=== PATIENT | male | born 1995 | race Two or more races ===

== ENCOUNTER 2022-11-08 16:29 | Emergency (ER) | payer MEDICAID, SELFPAY ==
[2022-11-08 16:39] VITALS: BP 102/67; PULSE 86; RESP 16; TEMP 37.2; O2SAT 99; BMI 23.3
--- NOTE | 2022-11-08 16:51 | ED_ITS ---
HPI - General Adult General Chief complaint: Nausea/Vomiting/Diarrhea Stated complaint: BACK PAIN, DROWSINESS Time Seen by Provider: 11/08/22 16:45 Source: patient Mode of arrival: walk-in Limitations: no limitations History of Present Illness HPI narrative: patient is a 27-year-old male who presents to the emergency department for a history of one week of illness, low back pain, discomfort with urination and sup rapubic abdominal pain. He reports multiple episodes of nausea and vomiting. He states he has not been able to hold anything down that he eats although he ate a bag of chips in the lobby prior to coming to an exam room. He has had no objective fevers. No upper respiratory symptoms. No medications taken prior to arrival. Related Data Home Medications Medication Instructions Recorded Confirmed cyclobenzaprine 10 mg tablet 10 mg PO Q8H PRN muscle pain 11/08/22 11/08/22 Previous Rx's Medication Instructions Recorded dicyclomine 20 mg tablet 20 mg PO QID PRN abdominal pain 11/08/22 #12 tabs ketorolac 10 mg tablet 10 mg PO TID PRN pain #10 tabs 11/08/22 ondansetron 4 mg disintegrating 4 mg PO Q6H PRN nausea and 11/08/22 tablet vomiting #12 tabs Allergies Allergy/AdvReac Type Severity Reaction Status Date / Time No Known Drug Allergies Allergy Verified 11/08/22 16:44 PFSH PFSH Social History Smoking status: Current every day smoker Exam Constitutional Vital Signs - 24 hr 11/08/22 16:39 Temperature 99.0 F Pulse Rate [Monitor] 86 Respiratory Rate 16 Blood Pressure [Right Arm] 102/67 Pulse Oximetry 99 Oxygen Delivery Method Room Air Course Vital Signs Vital signs: Vital Signs Temperature 99.0 F 11/08/22 16:39 Pulse Rate 86 11/08/22 16:39 Respiratory Rate 16 11/08/22 16:39 Blood Pressure 102/67 11/08/22 16:39 Pulse Oximetry 99 11/08/22 16:39 Oxygen Delivery Method Room Air 11/08/22 16:39 Temperature 99.0 F 11/08/22 16:39 Pulse Rate 86 11/08/22 16:39 Respiratory Rate 16 11/08/22 16:39 Blood Pressure 102/67 11/08/22 16:39 Pulse Oximetry 99 11/08/22 16:39 Oxygen Delivery Method Room Air 11/08/22 16:39 Medical Decision Making MDM Narrative Medical decision making narrative: patient treated with IV fluids, Toradol, Zofran. He had no symptoms of emesis in the Emergency Room and was able to eat and drink without difficulty. Lab studies are stable, bilirubin is elevated although LFTs and lipase are not elevated and the patient has no tenderness to the right upper quadrant. CT shows no evidence of acute abnormalities, gallbladder and liver within normal limits. Patient will be discharged home with Toradol, Bentyl, Zofran. Follow-up with PCP and return to the emergency department if symptoms change or worsen. Medical Records Medical records reviewed: Yes I reviewed the patient's medical records Lab Data Lab results reviewed: Yes I reviewed the patient's lab results Labs: Lab Results 11/08/22 Range/Units 17:35 WBC 9.6 (4.0-11.0) 10^3/uL RBC 5.30 (4.70-6.10) 10^6/uL Hgb 15.8 (14.0-18.0) g/dL Hct 45.8 (42.0-54.0) % MCV 86.4 (80.0-94.0) fL MCH 29.8 (25.9-34.0) pg MCHC 34.5 (29.9-35.2) g/dL RDW 12.5 (11.0-15.0) % Plt Count 271 (150-450) 10^3/uL MPV 9.8 (9.5-13.5) fL Neut % (Auto) 77.6 H (43.0-75.0) % Lymph % (Auto) 14.7 L (20.5-60.0) % [place] % (Auto) 6.2 (1.7-12.0) % Eos % (Auto) 1.0 (0.9-7.0) % Baso % (Auto) 0.3 (0.2-2.0) % Neut # (Auto) 7.5 H (1.4-6.5) 10^3/uL Lymph # (Auto) 1.4 (1.2-3.8) 10^3/uL [place] # (Auto) 0.6 (0.3-0.8) 10^3/uL Eos # (Auto) 0.1 (0.0-0.7) 10^3/uL Baso # (Auto) 0.0 (0.0-0.1) 10^3/uL Abs Immat Gran (auto) 0.02 (0.00-0.03) 10^3/uL Imm/Tot Granulo (auto) 0.2 (0.0-0.5) % Sodium 138 (136-145) mmol/L Potassium 3.8 (3.5-5.1) mmol/L Chloride 103 (98-107) mmol/L Carbon Dioxide 31.4 (21.0-32.0) mmol/L Anion Gap 7.4 BUN 9.0 (7.0-18.0) mg/dL Creatinine 0.68 L (0.70-1.30) mg/dL Est GFR ( Amer) >60 (>=60) Est GFR (Non-Af Amer) >60 (>=60) BUN/Creatinine Ratio 13.2 Glucose 85 (74-106) mg/dL Lactate 1.1 (0.4-2.0) mmol/L Calcium 8.8 (8.5-10.1) mg/dL Total Bilirubin 1.8 H (0.2-1.0) mg/dL AST 22 (15-37) U/L ALT 37 (16-63) U/L Alkaline Phosphatase 74 (46-116) U/L Total Protein 7.1 (6.4-8.2) g/dL Albumin 3.7 (3.4-5.0) g/dL Globulin 3.4 g/dL Albumin/Globulin Ratio 1.1 Lipase 45.0 L (73.0-393.0) U/L Urine Color Yellow (YELLOW) Urine Clarity Clear (CLEAR) Urine pH 7.0 (5.0-9.0) Ur Specific [place] 1.010 (1.005-1.025) Urine Protein Negative (NEG/TRACE) mg/dL Urine Glucose (UA) Negative (NEGATIVE) mg/dL Urine Ketones Negative (NEGATIVE) mg/dL Urine Occult Blood Negative (NEGATIVE) Urine Nitrite Negative (NEGATIVE) Urine Bilirubin Negative (NEGATIVE) Urine Urobilinogen 0.2 (0.2-1.0) EU/dL Ur Leukocyte Esterase Negative (NEGATIVE) Monoscreen Negative (NEGATIVE) Imaging Data CT scan - abdomen: Attestation: I have reviewed the pertinent imaging results. Radiologist's impression: Procedure: CT abdomen pelvis wo con EXAM: CT abdomen pelvis wo con TECHNIQUE: Axial CT images were obtained of the abdomen and pelvis with intravenous contrast. Sagittal and coronal reformatted images were also obtained. Dose reduction techniques were achieved by using automated exposure control and/or adjustment of mA and/or kV according to patient size and/or use of iterative reconstruction technique. HISTORY: flank pain COMPARISON: 10/10/2013 FINDINGS: Lower chest: The lower lungs are clear. Liver: The liver is homogeneous with normal contours and normal size. Gallbladder: The gallbladder is unremarkable. There is no intra or extrahepatic biliary dilatation. Pancreas: The pancreas is homogeneous without evidence for mass lesion or inflammation. Spleen: The spleen is unremarkable without evidence for mass lesion. Adrenal glands: The adrenal glands are unremarkable Kidneys and bladder: The kidneys are unremarkable with no evidence for mass lesion, hydronephrosis or inflammation. The ureters demonstrate normal caliber. The urinary bladder appears unremarkable given lack of distention. GI Tract: Stomach is unremarkable. Visualized small bowel is unremarkable without evidence for obstruction or active inflammation. The appendix is unremarkable.The visualized portion of the large bowel is unremarkable. Reproductive: Unremarkable Lymph nodes: No retroperitoneal or abdominal lymphadenopathy. Vascular: The aorta is not dilated. Peritoneum: No free intraperitoneal air or fluid. No acute inflammation. Abdominal wall: Unremarkable without acute abnormality. IMPRESSION: No acute abdominal pathology. No acute inflammatory process. No obstructing urinary tract stone. No evidence for bowel obstruction. Electronically authenticated by: CHANNING SAINZ Date: 11/08/2022 18:07 Discharge Plan Discharge Chief Complaint: Nausea/Vomiting/Diarrhea Clinical Impression: Low back pain, Nausea and vomiting Patient Disposition: Home, Self-Care Time of Disposition Decision: 18:28 Condition: Good Prescriptions / Home Meds: New ketorolac 10 mg tablet 10 mg PO TID PRN (Reason: pain) Qty: 10 0RF dicyclomine 20 mg tablet 20 mg PO QID PRN (Reason: abdominal pain) Qty: 12 0RF ondansetron 4 mg tablet,disintegrating 4 mg PO Q6H PRN (Reason: nausea and vomiting) Qty: 12 0RF No Action cyclobenzaprine 10 mg tablet 10 mg PO Q8H PRN (Reason: muscle pain) Instructions: Acute Nausea and Vomiting (ED), Acute Low Back Pain (ED) Stand Alone Forms: Portal Instructions Referrals: Physician,Non-Staff, MD [Primary Care Provider] - 1 week
--- NOTE | 2022-11-08 17:26 | CT_ITS ---
The [address] [address] Patient Name: KEELY ELLIS MRN: [id number] date: 1995 Sex: M Assigned Patient Location: ER Current Patient Location: Accession/Order Number: [id number] Exam Date: 11/08/2022 17:22 Report Date: 11/08/2022 18:07 At the request of: MICAH NELSON Procedure: CT abdomen pelvis wo con EXAM: CT abdomen pelvis wo con TECHNIQUE: Axial CT images were obtained of the abdomen and pelvis with intravenous contrast. Sagittal and coronal reformatted images were also obtained. Dose reduction techniques were achieved by using automated exposure control and/or adjustment of mA and/or kV according to patient size and/or use of iterative reconstruction technique. HISTORY: flank pain COMPARISON: 10/10/2013 FINDINGS: Lower chest: The lower lungs are clear. Liver: The liver is homogeneous with normal contours and normal size. Gallbladder: The gallbladder is unremarkable. There is no intra or extrahepatic biliary dilatation. Pancreas: The pancreas is homogeneous without evidence for mass lesion or inflammation. Spleen: The spleen is unremarkable without evidence for mass lesion. Adrenal glands: The adrenal glands are unremarkable Kidneys and bladder: The kidneys are unremarkable with no evidence for mass lesion, hydronephrosis or inflammation. The ureters demonstrate normal caliber. The urinary bladder appears unremarkable given lack of distention. GI Tract: Stomach is unremarkable. Visualized small bowel is unremarkable without evidence for obstruction or active inflammation. The appendix is unremarkable.The visualized portion of the large bowel is unremarkable. Reproductive: Unremarkable Lymph nodes: No retroperitoneal or abdominal lymphadenopathy. Vascular: The aorta is not dilated. Peritoneum: No free intraperitoneal air or fluid. No acute inflammation. Abdominal wall: Unremarkable without acute abnormality. IMPRESSION: No acute abdominal pathology. No acute inflammatory process. No obstructing urinary tract stone. No evidence for bowel obstruction. Electronically authenticated by: CHANNING SAINZ Date: 11/08/2022 18:07
[2022-11-08 17:44] LABS: Basophils Percent Auto 0.3 % (0.2-2.0); Eosinophils Absolute Auto 0.1 10^3/uL (0.0-0.7); Hematocrit 45.8 % (42.0-54.0); Hemoglobin 15.8 g/dL (14.0-18.0); Immature Granulocytes Abs Auto 0.02 10^3/uL (0.00-0.03); Immature Granulocytes Pct Auto 0.2 % (0.0-0.5); Lymphocytes Absolute Auto 1.4 10^3/uL (1.2-3.8); Lymphocytes Percent Auto 14.7 % (20.5-60.0); Mean Corpuscular HGB Conc 34.5 g/dL (29.9-35.2); Mean Corpuscular Hemoglobin 29.8 pg (25.9-34.0); Mean Corpuscular Volume 86.4 fL (80.0-94.0); Mean Platelet Volume 9.8 fL (9.5-13.5); Monocytes Absolute Auto 0.6 10^3/uL (0.3-0.8); Monocytes Percent Auto 6.2 % (1.7-12.0); Neutrophils Absolute Auto 7.5 10^3/uL (1.4-6.5); Neutrophils Percent Auto 77.6 % (43.0-75.0); Platelet Count 271 10^3/uL (150-450); Red Cell Distribution Width 12.5 % (11.0-15.0); White Blood Count 9.6 10^3/uL (4.0-11.0)
[2022-11-08] MEDS: ONDANSETRON PF 4 MG/2 ML VIAL IV (17:44)
[2022-11-08] MEDS: KETOROLAC TROMETHAMINE 30 MG/ML VIAL IVP (17:44)
[2022-11-08] MEDS: 0.9 % SODIUM CHLORIDE 1,000 ML 999 ML IV (17:45)
[2022-11-08 17:56] LABS: Bilirubin Urine NEGATIVE (NEGATIVE); Blood Urine NEGATIVE (NEGATIVE); Clarity Urine CLEAR (CLEAR); Color Urine YELLOW (YELLOW); Glucose Urine UA NEGATIVE (NEGATIVE); Ketones Urine NEGATIVE (NEGATIVE); Leukocyte Esterase Urine NEGATIVE (NEGATIVE); Nitrite Urine NEGATIVE (NEGATIVE); Protein Urine NEGATIVE (NEG/TRACE); Urobilinogen Urine 0.2 EU/dL (0.2-1.0)
[2022-11-08 17:59] LABS: Mono Screen NEGATIVE (NEGATIVE); Urine Microscopic Indicated NO
[2022-11-08 18:06] LABS: Lactate/Lactic Acid 1.1 mmol/L (0.4-2.0)
[2022-11-08 18:13] LABS: Alanine Aminotransferase 37 U/L (16-63); Albumin Globulin Ratio 1.1; Albumin Level 3.7 g/dL (3.4-5.0); Alkaline Phosphatase 74 U/L (46-116); Anion Gap 7.4; Aspartate Amino Transferase 22 U/L (15-37); BUN Creatinine Ratio 13.2; Bilirubin Total 1.8 mg/dL (0.2-1.0); Calcium 8.8 mg/dL (8.5-10.1); Carbon Dioxide 31.4 mmol/L (21.0-32.0); Chloride 103 mmol/L (98-107); Estimated GFR (African America >60 (>=60); Estimated GFR (Non-African Ame >60 (>=60); Globulin 3.4 g/dL; Glucose 85 mg/dL (74-106); Potassium 3.8 mmol/L (3.5-5.1); Sodium 138 mmol/L (136-145); Total Protein 7.1 g/dL (6.4-8.2)
[2022-11-08 18:43] VITALS: BP 99/66; PULSE 90; RESP 16; TEMP 36.8; O2SAT 99
== END 2022-11-08 18:48 | disposition home or self-care (01) ==
PROVIDERS: Physician Assistant; Emergency Provider Emergency Medicine
DX: R11.2 Nausea with vomiting, unspecified (principal); M54.50 Low back pain, unspecified; F17.210 Nicotine dependence, cigarettes, uncomplicated
CPT/HCPCS: 36415; 74176; 80053; 81003; 83605; 83690; 85025; 86308; 96374; 96375; 99284

== ENCOUNTER 2023-10-28 15:09 | Emergency (ER) | payer MEDICAID, SELFPAY ==
[2023-10-28 15:13] VITALS: BP 122/68; PULSE 74; TEMP 36.7; O2SAT 98; BMI 24.1
--- NOTE | 2023-10-28 15:29 | ED_ITS ---
HPI - SOB/Dyspnea General Chief Complaint: Shortness of Breath/Dyspnea Stated Complaint: Shortness of Breath Time Seen by Provider: 10/28/23 15:29 Source: patient and family Mode of arrival: walk-in Limitations: no limitations History of Present Illness HPI Narrative: Patient is here complaining of some shortness of breath and a sharp stabbing chest pain. He was at a different hospital last night and evaluated and discharged. He said the sharp stabbing pain is in both sides of his lungs and he points to his right and left chest. He has not had any previous history of pneumonia asthma reactive airway disease COVID or any influenza/viral type symptoms. He has not had aches and pains fever chills sore throat runny nose earache or headache. He does a lot of vaping and also does a lot of tobacco products. He denies any marijuana or any other illicit drugs. He is not on any medications or antibiotics. No previous cardiac history. Does not have any swelling of his legs or his joints or evidence of rheumatological disorder. He is not sure exactly what all tests were done in the other hospital last night. Related Data Home Medications ?Medication ?Instructions ?Recorded ?Confirmed ibuprofen 600 mg tablet 600 mg PO Q8H PRN pain 10/28/23 10/28/23 lorazepam 1 mg tablet 1 mg PO Q8H PRN anxiety 10/28/23 10/28/23 Allergies Allergy/AdvReac Type Severity Reaction Status Date / Time No Known Drug Allergies Allergy Verified 11/08/22 16:44 PFSH PFSH Social History Smoking status: Current every day smoker Exam Narrative Exam Narrative: Awake alert almost paranoid and behavior. Vital signs are stable and he is a for pulse oximetry is 98 to 100% on room air he is not tachycardic or tachyp neic. He is thin does not appear to be in any distress. His lungs were completely clear with no wheeze rales or rhonchi even with forced exhalation do not hear any wheezing or bronchospasm. Heart sounds are normal with no clicks rubs gallops or murmur. He has no jugular vein distention. Does not have any abdominal discomfort. Extremities show no evidence of edema phlebitis erythema or swelling. Joints are not problematic or symptomatic at this time. Constitutional Vital Signs, click to edit/add: Last Vital Signs Temp 98.0 F 10/28/23 15:13 Pulse 74 10/28/23 15:13 Resp 18 10/28/23 15:13 BP 122/68 10/28/23 15:13 Pulse Ox 98 10/28/23 15:13 O2 Del Method Room Air 10/28/23 15:13 Course Vital Signs Vital signs: Vital Signs Temperature 98.0 F 10/28/23 15:13 Pulse Rate 74 10/28/23 15:13 Respiratory Rate 18 10/28/23 15:13 Blood Pressure 122/68 10/28/23 15:13 Pulse Oximetry 98 10/28/23 15:13 Oxygen Delivery Method Room Air 10/28/23 15:13 Temperature 98.0 F 10/28/23 15:13 Pulse Rate 74 10/28/23 15:13 Respiratory Rate 18 10/28/23 15:13 Blood Pressure 122/68 10/28/23 15:13 Pulse Oximetry 98 10/28/23 15:13 Oxygen Delivery Method Room Air 10/28/23 15:13 MDM - SOB/Dyspnea MDM Narrative Medical decision making narrative: Records were obtained from the other hospital. He is actually seen there twice. Extensive testing was done with D-dimer cardiac enzymes sequentially EKGs chest x-ray CHEM 414 profile and both times they were negative. They felt that he had anxiety. In fact he has known history of schizoaffective disorder and anxiety depression. Laboratory testing here shows normal troponin pulse oximetry 100% respiratory rate normal normal auscultatory findings normal clinical exam and normal chest x-ray and normal EKG. We had an extensive discussion with the family members and himself. I do believe that this is more of an anxiety type of situation. He has been seeing a counselor in the past and we advised him to follow-up with a counselor. He is not suicidal Discharge Plan Discharge Stand Alone Forms: Portal Instructions Chief Complaint: Shortness of Breath/Dyspnea Clinical Impression: Chest pain, Anxiety Patient Disposition: Home, Self-Care Time of Disposition Decision: 16:33 Prescriptions / Home Meds: No Action ibuprofen 600 mg tablet 600 mg PO Q8H PRN (Reason: pain) lorazepam 1 mg tablet 1 mg PO Q8H PRN (Reason: anxiety) Print Language: B[place] Additional Instructions: Follow-up with your counselor as discussed Referrals: Physician,Non-Staff, MD [Primary Care Provider] - 1 week
--- NOTE | 2023-10-28 15:31 | XR_ITS ---
The [address] [address] Patient Name: KEELY ELLIS MRN: [id number] date: 1995 Sex: M Assigned Patient Location: ER Current Patient Location: Accession/Order Number: [id number] Exam Date: 10/28/2023 16:19 Report Date: 10/28/2023 16:45 At the request of: MARILEE MERCADO Procedure: XR chest 2V EXAMINATION: XR chest 2V HISTORY: Dyspnea , chest pain COMPARISON: No relevant comparison available. FINDINGS: LUNGS: No significant pulmonary parenchymal abnormalities. VASCULATURE: No increased pulmonary vasculature. PLEURA: No pneumothorax, effusion, or pleural thickening. CARDIAC: No cardiomegaly or cardiac silhouette abnormality. MEDIASTINUM: No visible mass or adenopathy. BONES: No fracture or visible bone lesion. OTHER: Negative. XR/XR chest 2V IMPRESSION: 1. No acute cardiopulmonary process or suspicious findings. Electronically authenticated by: AMISHA MCKEON Date: 10/28/2023 16:45
--- NOTE | 2023-10-28 15:31 | ECG_ITS ---
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
[2023-10-28 15:55] LABS: Basophils Absolute Auto 0.1 10^3/uL (0.0-0.1); Basophils Percent Auto 0.7 % (0.2-2.0); Eosinophils Absolute Auto 0.1 10^3/uL (0.0-0.7); Eosinophils Percent Auto 1.9 % (0.9-7.0); Hematocrit 42.4 % (42.0-54.0); Hemoglobin 14.6 g/dL (14.0-18.0); Lymphocytes Absolute Auto 2.1 10^3/uL (1.2-3.8); Lymphocytes Percent Auto 30.4 % (20.5-60.0); Mean Corpuscular HGB Conc 34.4 g/dL (29.9-35.2); Mean Corpuscular Hemoglobin 29.5 pg (25.9-34.0); Mean Corpuscular Volume 85.7 fL (80.0-94.0); Mean Platelet Volume 9.1 fL (9.5-13.5); Monocytes Absolute Auto 1.3 10^3/uL (0.3-0.8); Monocytes Percent Auto 18.7 % (1.7-12.0); Neutrophils Absolute Auto 3.3 10^3/uL (1.4-6.5); Neutrophils Percent Auto 48.3 % (43.0-75.0); Platelet Count 276 10^3/uL (150-450); Red Blood Count 4.95 10^6/uL (4.70-6.10); Red Cell Distribution Width 12.4 % (11.0-15.0); White Blood Count 6.9 10^3/uL (4.0-11.0)
[2023-10-28 16:14] LABS: Anion Gap 11.9; BUN Creatinine Ratio 16.5; Calcium 8.7 mg/dL (8.5-10.1); Carbon Dioxide 26.7 mmol/L (21.0-32.0); Chloride 106 mmol/L (98-107); Estimated GFR (African America >60 (>=60); Estimated GFR (Non-African Ame >60 (>=60); Glucose 86 mg/dL (74-106); Potassium 3.6 mmol/L (3.5-5.1); Sodium 141 mmol/L (136-145); Troponin I High Sensitivity 4.5 pg/mL (4.0-76.1)
[2023-10-28 16:45] VITALS: BP 128/86; PULSE 88; O2SAT 98
== END 2023-10-28 16:46 | disposition home or self-care (01) ==
PROVIDERS: Emergency Provider Emergency Medicine Emergency Medical Services
DX: R07.9 Chest pain, unspecified (principal); F41.8 Other specified anxiety disorders; R06.02 Shortness of breath; F17.290 Nicotine dependence, other tobacco product, uncomplicated; F25.9 Schizoaffective disorder, unspecified
CPT/HCPCS: 36415; 71046; 80048; 84484; 85025; 93005; 99285

== ENCOUNTER 2024-10-22 06:59 | Emergency (ER) | payer MEDICAID, SELFPAY ==
[2024-10-22 07:05] VITALS: BP 115/84; PULSE 72; TEMP 36.4; O2SAT 99; BMI 28.2
--- OUTSIDE RECORDS SUMMARY | 2024-10-22 07:18 | XMS_ITS | CCD ---
Author Organization [facility] Care Team Providers Care Fisheries Manager Name Role Phone Unavailable Primary Care Provider UnavailALEXIS Johsnon Admitting Unavailable ALEXIS OWENS Attending Unavailable INDURTI, MELANIE V Admitting Unavailable INDURTI MELANIE V Attending Unavailable Brandi White DO A Attending Unavailable Brandi White DO Admitting Unavailable [facility] Primary Care Unavailable MD JUDITH LICONA Consulting Unavailable JAMES, LAKISHA GAMBOA Consulting Unavailable REQUEST, DR BAYRON LISTED Primary Care Unavaila ilsa CUELLO, DR GARCÍA Attending Unavailable CUATE, DR GARCÍA Consulting Unavailable CUATE, DR GARCÍA Admitting Unavailable REQUEST, DR VERMA LISTED Primary Care Unavaila ilsa CUELLO, DR GARCÍA Attending Unavailable CUATE, DR GARCÍA Consulting Unavailable CUATE, DR GARCÍA Admitting Unavailable [facility] Primary Care Unavailable GUSTAVO, DR BERNA Rogers Attending Unavailable GUSTAVO, DR BERNA Rogers Admitting Unavailable PAY, DR GOMEZ Admitting Unavailable [facility] Primary Care Unavailable PAY, DR GOMEZ Attending Unavailable PAY, DR GOMEZ Admitting Unavailable [facility] Primary Care Unavailable PAY, DR GOMEZ Attending Unavailable PAY, DR GOMEZ Consulting Unavailable MD Tom Britton Admit Provider MD Tom Britton Attending Provider NON STAFF Primary Care Provider Unavailkathy e NON STAFF Primary Care Provider UnavailKATHRYN Garza Emergency Provider NO PCP, NO PCP Primary Care Unavailable LONNIE ALLEN Attending Unavailable PANTERA FLORES Attending Unavailable PANTERA FLORES QKait Referring Unavailable SERVICES, [facility] Primary Care Unava ilable SERVICES, [facility] Unava ilable SERVICES, [facility] Primary Care Unava ilable NOBLE ALLEN Attending Unavailable SERVICES, [facility] Primary Care Unava ilable DOPANTERA QKait Attending Unavailable LAURA TERRY Attending Unavailable LAURA TERRY Referring Unavailable SERVICES, [facility] Unava ilable SERVICES, [facility] Primary Care Unava ilable DOPANTERA QKait Attending Unavailable Pankaj Britton Attending Unavailab le Pankaj Britton Admitting Unavailab le NON STAFF Primary Care Unavailable Allergies Allergy Classification Reported Allergen(s) Allergy Type Date of Onset Reaction(s) Facility Unclassified (1 source) No Known Medication Allergies; Translations: [No Known Medication Allergies] Propensity to adverse reactions to drug (disorder) [facility] Rep[facility] Medications Current Medications Medication Drug Class(es) Dates Sig (Normalized) Sig (Original) risperiDONE 0.5 mg oral tablet (5 sources) Atypical Antipsychotic Start: 04-14-2019 take 1 tablet by mouth once daily risperiDONE (RISPERDAL) 0.5 MG tablet Take 1 tablet by mouth daily 14 tablet 0 04/14/2019 Active Start: 04-13-2019 take 1 tablet by mellisa th once daily risperiDONE (RISPERDAL) 1 MG tablet Take 1 tablet by mouth nightly 14 tablet 0 04/13/2019 Active Start: 12-26-2018 End: 01-12-2022 take 1 mg by mouth twice daily Risperidone Discontinue d 1 MG PO Twice daily December 26, 2018 12:00am January 12, 2022 1:18pm Start: 11-21-2018 End: 04-13-2019 take 1 tablet by mouth twice daily risperiDONE (RISPERDAL) 0.5 MG tablet Take 1 tablet by mouth 2 times daily 28 tablet 0 11/21/2018 04/13/2019 Discontinued (Stop Taking at Discharge) Completed/Discontinued Medications Medication Drug Class(es) Dates Sig (Normalized) Sig (Original) escitalopram 5 mg oral tablet (2 sources) Serotonin Reuptake Inhibitor Start: 01-15-2022 End: 09-01-2023 take 5 mg by mouth once daily in the evening Escitalopram Oxalate Discontinued 5 MG PO Every evening January 15, 2022 12:00am September 01, 2023 9:39am hydrOXYzine hydrochloride 25 mg oral tablet (4 sources) Antihistamine Start: 12-26-2018 End: 01-12-2022 take 25 mg by mouth three times daily Hydroxyzine Hcl Discontinued 25 MG PO Three times daily December 26, 2018 12:00am January 12, 2022 1:18pm End: 04-13-2019 take 1 capsule by mouth three times daily as needed hydrOXYzine (VISTARIL) 50 MG capsule Take 50 mg by mouth 3 times daily as needed 0 04/13/2019 Discontinued (Stop Taking at Discharge) nicotine 2 mg chewing gum (2 sources) Cholinergic Nicotinic Agonist Start: 01-15-2022 End: 09-01-2023 Nicotine (Polacrilex) Discontinued 2 MG BUCCAL Q2H 60 January 15, 2022 12:00am September 01, 2023 9:39am traZODone hydrochloride 50 mg oral tablet (6 sources) Serotonin Reuptake Inhibitor Start: 01-15-2022 End: 09-01-2023 take 50 mg by mouth once daily at bedtime Trazodone Discontinued 50 MG PO Daily at bedtime January 15, 2022 12:00am September 01, 2023 9:39am Start: 04-13-2019 take 1 tablet by mellisa th once daily traZODone (DESYREL) 50 MG tablet Take 1 tablet by mouth nightly 14 tablet 0 04/13/2019 Active Start: 12-26-2018 End: 01-12-2022 take 100 mg by mouth at bedtime Trazodone Discontinued 100 MG PO Bedtime December 26, 2018 12:00am January 12, 2022 1:18pm Problems Active Problems Problem Classification Problem Date Documented Da te Episodic/Chronic Anxiety disorders (4 sources) Anxiety disorder, unspecified; Translations: [ANXIETY DISORDER UNSPECIFIED] Onset: 10-08-2020 Chronic E Codes: Fall (1 source) Unspecified fall, initial encounter; Translations: [Unspecified fall, initial encounter] Onset: 10-01-2024 Episodic Mood disorders (3 sources) Major depression with psychotic features; Translations: [Major depressive disorder, single episode, severe with psychotic features] 01-13-2022 Chronic Residual codes; unclassified (4 sources) Procedure and treatment not carried out due to patient leaving prior to being seen by health care provider; Translations: [PROC AND TX NOT CARRIED OUT PT LEAVE] Onset: 02-07-2021 Episodic Schizophrenia and other psychotic disorders (4 sources) Psychotic disorder; 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] Onset: 11-19-2018 Resolved: 11-21-2018 04-13-2019 Chronic Spondylosis; intervertebral disc disorders; other back problems (1 source) Backache Onset: 10-01-2024 Episodic Substance-related disorders (1 source) Nicotine dependence, cigarettes, uncomplicated; Translations: [NICOTINE DEPEND CIGARETTES UNCOMP] Onset: 10-24-2020 Chronic Suicide and intentional self-inflicted injury (2 sources) Suicidal thoughts; Translations: [Suicidal ideations] 12-26-2018 Episodic Superficial injury; contusion (2 sources) Contusion of left front wall of thorax, initial encounter; Translations: [Contusion of lower back and pelvis, initial encounter] Onset: 10-01-2024 Episodic Unclassified (1 source) Fall, flank pain Onset: 10-01-2024 Viral infection (1 source) Viral disease; Translations: [Viral infection, unspecified] 09-01-2023 Episodic Past or Other Problems Problem Classification Problem Date Documented Da te Episodic/Chronic Abdominal pain (1 source) Epigastric pain; Translations: [EPIGASTRIC PAIN] Onset: 10-24-2020 Episodic Attention-deficit, conduct, and disruptive behavior disorders (1 source) Other symptoms and signs involving appearance and behavior; Translations: [Other symptoms and signs involving appearance and behavior] Onset: 10-15-2023 Episodic Nonspecific chest pain (3 sources) Chest pain, unspecified; Translations: [Chest pain] Onset: 10-24-2020 Episodic Other aftercare (1 source) Other assisted (current) drug therapy; Translations: [OTH ORAL HYGIENIST CURRENT DRUG THERAPY] Onset: 10-11-2020 Episodic Other lower respiratory disease (1 source) Shortness of breath; Translations: [Shortness of breath] Onset: 10-28-2023 Episodic Other lower respiratory disease (1 source) Shortness of breath Onset: 10-28-2023 Episodic Residual codes; unclassified (3 sources) Altered mental status, unspecified; Translations: [ALTERED MENTAL STATUS UNSPECIFIED] Onset: 10-21-2020 Episodic Residual codes; unclassified (1 source) Procedure and treatment not carried out because of patient's decision for other reasons; Translations: [PROC AND TX NOT CARRIED OUT PT OTH RSN] Onset: 10-24-2020 Episodic Substance-related disorders (2 sources) Other stimulant use, unspecified, uncomplicated; Translations: [OTH STIMULANT USE UNS UNCOMPLICATED] Onset: 10-11-2020 Episodic Results Test Name Value Interpretation Reference Range Facility XR RIBS LT 3 VWS W PA CHESTo n 10-01-2024 XR RIBS LT 3 VWS W PA CHEST XR RIBS LT 3 VWS W PA CHEST SINGLE VIEW CHEST AND THREE VIEWS LEFT RIBS HISTORY: Fall, left rib pain COMPARISON: 09/06/2021 IMPRESSION: * Lungs and pleural spaces are clear. * No acute displaced left rib fractures. Finalized by Don Wright MD on 10/01/2024 7:35 AM Normal [facility] CBC AND AUTO DIFFon 10-28-19 24 ABSOLUTE BASOPHIL 0.1 X10E9/L Normal 0.0-0.2 [facility] Comment on above: Performed By: #### C ANALY, 65340-3, CBCA, 92125-0 #### [facility] ([id number]) [address] [place] [address] 25803 ABSOLUTE NEUTROPHIL 4.1 X10E9/L Normal 1.5-6.6 [facility] Comment on above: Performed By: #### C ANALY, 88953-7, CBCA, 39086-6 #### [facility] ([id number]) [address] [place] [address] 19793 Basophils/100 WBC (Bld) 1.1 % Normal [facility] Comment on above: Performed By: #### C ANALY, 59900-4, CBCA, 80984-9 #### [facility] ([id number]) [address] [place] [address] 43080 Eosinophils (Bld) [#/Vol] 0.1 10*3/uL Normal 0.0-0.4 [facility] Comment on above: Performed By: #### C ANALY, 97454-9, CBCA, 86270-5 #### [facility] ([id number]) [address] [place] [address] 47517 Eosinophils/100 WBC (Bld) 0.9 % Normal [facility] Comment on above: Performed By: #### C ANALY, 25427-5, CBCA, 42469-2 #### [facility] ([id number]) [address] [place] [address] 58165 Erythrocyte distribution width (RBC) [Ratio] 13.4 % Normal 11.5-15.0 [facility] Comment on above: Performed By: #### Deangelo BECKFORD, 06970-0, CBCA, 32853-9 #### [facility] ([id number]) [address] [place] [address] 22760 Hematocrit (Bld) [Volume fraction] 44.9 % Normal 39-49 [facility] Comment on above: Performed By: #### Deangelo BECKFORD, 53751-3, CBCA, 83082-0 #### [facility] ([id number]) [address] [place] [address] 07350 Hemoglobin (Bld) [Mass/Vol] 15.8 g/dL Normal 13.0-17.0 [facility] Comment on above: Performed By: #### Deangelo BECKFORD, 99292-2, CBCA, 67723-9 #### [facility] ([id number]) [address] [place] [address] 28157 Lymphocytes (Bld) [#/Vol] 2.4 10*3/uL Normal 1.0-3.5 [facility] Comment on above: Performed By: #### Deangelo BECKFORD, 81129-5, CBCA, 35213-9 #### [facility] ([id number]) [address] [place] [address] 03968 Lymphocytes/100 WBC (Bld) 30.8 % Normal [facility] Comment on above: Performed By: #### C ANALY, 69735-5, CBCA, 12285-8 #### [facility] ([id number]) [address] [place] [address] 96088 MCH (RBC) [Entitic mass] 29.9 pg Normal 27-34 [facility] Comment on above: Performed By: #### Deangelo BECKFORD, 39917-0, CBCA, 82716-2 #### [facility] ([id number]) [address] [place] [address] 24930 MCHC (RBC) [Mass/Vol] 35.3 g/dL Normal 32-36 [facility] Comment on above: Performed By: #### Deangelo BECKFORD, 77024-2, CBCA, 30023-7 #### [facility] ([id number]) [address] [place] [address] 82994 MCV (RBC) [Entitic vol] 85 fL Normal 80-100 [facility] Comment on above: Performed By: #### Deangelo BECKFORD, 19841-0, CBCA, 72785-4 #### [facility] ([id number]) [address] [place] [address] 50866 Monocytes (Bld) [#/Vol] 1.0 10*3/uL High 0-0.9 [facility] Comment on above: Performed By: #### C ANALY, 45324-4, CBCA, 46089-8 #### [facility] ([id number]) [address] [place] [address] 02328 Monocytes/100 WBC (Bld) 13.1 % Normal [facility] Comment on above: Performed By: #### C ANALY, 65407-3, CBCA, 84162-6 #### [facility] ([id number]) [address] [place] [address] 11605 Neutrophils/100 WBC (Bld) 54.1 % Normal [facility] Comment on above: Performed By: #### C ANALY, 59177-6, CBCA, 70945-1 #### [facility] ([id number]) [address] [place] [address] 27535 Platelet mean volume (Bld) [Entitic vol] 7.4 fL Normal 7-12 [facility] Comment on above: Performed By: #### Deangelo BECKFORD, 85563-1, CBCA, 53438-3 #### [facility] ([id number]) [address] [place] [address] 86409 Platelets (Bld) [#/Vol] 301 10*3/uL Normal 150-450 [facility] Comment on above: Performed By: #### Deangelo BECKFORD, 11260-8, CBCA, 48352-2 #### [facility] ([id number]) [address] [place] [address] 30328 RBC COUNT 5.30 X10E12/L Normal 4.10-5.70 [facility] Comment on above: Performed By: #### Deangelo BECKFORD, 79249-9, CBCA, 75230-4 #### [facility] ([id number]) [address] [place] [address] 98265 WBC (Bld) [#/Vol] 7.7 10*3/uL Normal 4.0-11.0 [facility] Comment on above: Performed By: #### Deangelo BECKFORD, 13990-8, CBCA, 24252-5 #### [facility] ([id number]) [address] [place] [address] 19771 COMPREHENSIVE METABOLIC PANE [place] 10-28-2023 Albumin [Mass/Vol] 4.8 g/dL Normal 3.2-5.3 [facility] Comment on above: Performed By: #### Deangelo BECKFORD, 33554-9, CBCA, 39673-9 #### [facility] ([id number]) [address] [place] [address] 27887 ALP [Catalytic activity/Vol] 62 U/L Normal 39-130 [facility] Comment on above: Performed By: #### C ANALY, 47923-9, CBCA, 29046-9 #### [facility] ([id number]) [address] [place] [address] 37536 ALT [Catalytic activity/Vol] 34 U/L Normal 0-40 [facility] Comment on above: Performed By: #### C ANALY, 86068-3, CBCA, 39558-6 #### [facility] ([id number]) [address] [place] [address] 94645 Anion gap [Moles/Vol] 14 mmol/L Normal 5-15 [facility] Comment on above: Performed By: #### Deangelo BECKFORD, 86783-9, CBCA, 90596-6 #### [facility] ([id number]) [address] [place] [address] 24657 AST [Catalytic activity/Vol] 28 U/L Normal 0-41 [facility] Comment on above: Performed By: #### Deangelo BECKFORD, 12750-1, CBCA, 36263-2 #### [facility] ([id number]) [address] [place] [address] 07159 Bilirubin [Mass/Vol] 3.4 mg/dL High 0.3-1.2 [facility] Comment on above: Performed By: #### C ANALY, 05492-6, CBCA, 62039-2 #### [facility] ([id number]) [address] [place] [address] 83008 Calcium [Mass/Vol] 9.3 mg/dL Normal 8.5-10.5 [facility] Comment on above: Performed By: #### Deangelo BECKFORD, 68395-1, CBCA, 13248-5 #### [facility] ([id number]) [address] [place] [address] 94087 Chloride [Moles/Vol] 101 mmol/L Normal 98-109 [facility] Comment on above: Performed By: #### C ANALY, 97558-9, CBCA, 01776-8 #### [facility] ([id number]) [address] [place] [address] 34605 CO2 [Moles/Vol] 21 mmol/L Low 22-32 [facility] Comment on above: Performed By: #### C ANALY, 01226-2, CBCA, 29406-1 #### [facility] ([id number]) [address] [place] [address] 97638 Creatinine [Mass/Vol] 0.85 mg/dL Normal 0.70-1.20 [facility] Comment on above: Result Comment: METH OD TRACEABLE TO IDMS STANDARD Performed By: #### C ANALY, 47714-7, CBCA, 52825-5 #### [facility] ([id number]) [address] [place] [address] 51956 eGFR (CKD-EPI) NON-RACE DEPENDENT >90 Normal >59 [facility] Comment on above: Result Comment: Reported eGFR is based on the CKD-EPI 2020 equation that does not use a race coefficient. Performed By: #### C ANALY, 82857-7, CBCA, 16440-2 #### [facility] ([id number]) [address] [place] [address] 37860 Glucose [Mass/Vol] 96 mg/dL Normal 65-99 [facility] Comment on above: Performed By: #### C ANALY, 96445-0, CBCA, 68208-8 #### [facility] ([id number]) [address] [place] [address] 75699 Potassium [Moles/Vol] 3.1 mmol/L Low 3.5-5.0 [facility] Comment on above: Performed By: #### C ANALY, 23146-8, CBCA, 64393-4 #### [facility] ([id number]) [address] [place] [address] 88412 Protein [Mass/Vol] 8.1 g/dL High 6.0-8.0 [facility] Comment on above: Performed By: #### C ANALY, 95075-5, CBCA, 19984-3 #### [facility] ([id number]) [address] [place] [address] 82291 Sodium [Moles/Vol] 136 mmol/L Normal 134-146 [facility] Comment on above: Performed By: #### C ANALY, 77487-9, CBCA, 42639-3 #### [facility] ([id number]) [address] [place] [address] 21330 Urea nitrogen [Mass/Vol] 14 mg/dL Normal 5-23 [facility] Comment on above: Performed By: #### C ANALY, 59740-8, CBCA, 99986-9 #### [facility] ([id number]) [address] [place] [address] 88883 Fibrin D-dimer DDU (PPP) [Ma ss/Vol]on 10-28-2023 D DIMER <150 Normal <255 [facility] Comment on above: Result Comment: Results <255 ng/mL DDU: The presence of a VTE can safely be excluded with a negative D-Dimer result and Wells score. A negative result doesn't exclude the possibility of DIC. The test be repeated along with other diagnostic tests if the patient's symptoms persist or worsen. [email or web address] Performed By: #### C ANALY, 75569-7, CBCA, 54081-9 #### [facility] ([id number]) [address] [place] [address] 27934 Troponin I.cardiac High sens itivity method [Mass/Vol]on 10-28-2023 TROPONIN I, HIGH SENSITIVITY 2 ng/L Normal <21 [facility] Comment on above: Performed By: #### C KAROLINE BMP, 79312-6 #### [facility] ([id number]) [address] [place] [address] 63719 1 HOUR TROP I, HIGH SENSITIVITY 2 ng/L Normal <21 [facility] Comment on above: Performed By: #### C KAROLINE, BMP, 36782-9 #### [facility] ([id number]) [address] [place] [address] 20582 TROPONIN I, HIGH SENSITIVITY 4 ng/L Normal <21 [facility] Comment on above: Performed By: #### C MP, 90294-2, CBCA, 01285-4 #### [facility] ([id number]) [address] [place] [address] 84057 XR CHEST 1 VWon 10-28-2023 XR CHEST 1 VW XR CHEST 1 VW History: Chest pain Technique: A portable single frontal view the chest was obtained. Comparison: 10/15/2023 Findings: There is no evidence for active cardiovascular or pulmonary disease. The heart size is within normal limits and lung pro are clear. Impression: Normal chest. Finalized by Judith Yu MD on 10/28/2023 12:32 AM Normal [facility] BASIC METABOLIC PANLon 10-14 Anion gap [Moles/Vol] 8 mmol/L Normal 5-15 [facility] Comment on above: Performed By: #### C KAROLINE, BMP, 17349-8 #### [facility] ([id number]) [address] [place] [address] 87004 Calcium [Mass/Vol] 9.2 mg/dL Normal 8.5-10.5 [facility] Comment on above: Performed By: #### C KAROLINE, BMP, 30910-1 #### [facility] ([id number]) [address] [place] [address] 13921 Chloride [Moles/Vol] 108 mmol/L Normal 98-109 [facility] Comment on above: Performed By: #### C DARIEL RAMEY, 77271-6 #### [facility] ([id number]) [address] [place] [address] 97148 CO2 [Moles/Vol] 21 mmol/L Low 22-32 [facility] Comment on above: Performed By: #### C DARIEL RAMEY, 20791-2 #### [facility] ([id number]) [address] [place] [address] 15985 Creatinine [Mass/Vol] 0.91 mg/dL Normal 0.70-1.20 [facility] Comment on above: Result Comment: METH OD TRACEABLE TO IDMS STANDARD Performed By: #### C DARIEL RAMEY, 48445-2 #### [facility] ([id number]) [address] [place] [address] 11855 eGFR (CKD-EPI) NON-RACE DEPENDENT >90 Normal >59 [facility] Comment on above: Result Comment: Reported eGFR is based on the CKD-EPI 1 equation that does not use a race coefficient. Performed By: #### C DARIEL RAMEY, 69104-6 #### [facility] ([id number]) [address] [place] [address] 95863 Glucose [Mass/Vol] 108 mg/dL High 65-99 [facility] Comment on above: Performed By: #### C DARIEL RAMEY, 80281-2 #### [facility] ([id number]) [address] [place] [address] 19476 Potassium [Moles/Vol] 3.0 mmol/L Low 3.5-5.0 [facility] Comment on above: Performed By: #### C DARIEL RAMEY, 20114-5 #### [facility] ([id number]) [address] [place] [address] 95847 Sodium [Moles/Vol] 137 mmol/L Normal 134-146 [facility] Comment on above: Performed By: #### Deangelo RAMEY [facility], 53486-5 #### [facility] ([id number]) [address] [place] [address] 48429 Urea nitrogen [Mass/Vol] 15 mg/dL Normal 5-23 [facility] Comment on above: Performed By: #### Deangelo RAMEY [facility], 09457-3 #### [facility] ([id number]) [address] [place] [address] 63745 CBC AND AUTO DIFFon 10-15-19 24 ABSOLUTE BASOPHIL 0.1 X10E9/L Normal 0.0-0.2 [facility] Comment on above: Performed By: #### Deangelo RAMEY [facility], 47377-9 #### [facility] ([id number]) [address] [place] [address] 10375 ABSOLUTE NEUTROPHIL 4.3 X10E9/L Normal 1.5-6.6 [facility] Comment on above: Performed By: #### Deangelo RAMEY [facility], 35982-4 #### [facility] ([id number]) [address] [place] [address] 48146 Basophils/100 WBC (Bld) 0.7 % Normal [facility] Comment on above: Performed By: #### Deangelo RAMEY [facility], 13892-9 #### [facility] ([id number]) [address] [place] [address] 29358 Eosinophils (Bld) [#/Vol] 0.0 10*3/uL Normal 0.0-0.4 [facility] Comment on above: Performed By: #### Deangelo RAMEY [facility], 88605-5 #### [facility] ([id number]) [address] [place] [address] 24605 Eosinophils/100 WBC (Bld) 0.3 % Normal [facility] Comment on above: Performed By: #### Deangelo RAMEY [facility], 16925-5 #### [facility] ([id number]) [address] [place] [address]391 Erythrocyte distribution width (RBC) [Ratio] 12.8 % Normal 11.5-15.0 [facility] Comment on above: Performed By: #### Deangelo RAME[facility], 30403-8 #### [facility] ([id number]) [address] [place] [address]138 Hematocrit (Bld) [Volume fraction] 44.9 % Normal 39-49 [facility] Comment on above: Performed By: #### DARIEL Bright [facility], 78498-9 #### [facility] [facility] ([id number]) [address] [place] [address] 69850 Hemoglobin (Bld) [Mass/Vol] 15.9 g/dL Normal 13.0-17.0 [facility] Comment on above: Performed By: #### Deangelo RAMEY [facility], 76644-3 #### [facility] ([id number]) [address] [place] [address] 23610 Lymphocytes (Bld) [#/Vol] 2.4 10*3/uL Normal 1.0-3.5 [facility] Comment on above: Performed By: #### Deangelo RAMEY [facility], 41242-2 #### [facility] ([id number]) [address] [place] [address] 24765 Lymphocytes/100 WBC (Bld) 31.2 % Normal [facility] Comment on above: Performed By: #### DARIEL Bright BCA, 80003-4 #### [facility] ([id number]) [address] [place] [address] 56637 MCH (RBC) [Entitic mass] 30.0 pg Normal 27-34 [facility] Comment on above: Performed By: #### DARIEL Bright BCA, 58654-1 #### [facility] ([id number]) [address] [place] [address] 63095 MCHC (RBC) [Mass/Vol] 35.4 g/dL Normal 32-36 [facility] Comment on above: Performed By: #### DARIEL Bright BCA, 32355-2 #### [facility] ([id number]) [address] [place] [address] 53951 MCV (RBC) [Entitic vol] 85 fL Normal 80-100 [facility] Comment on above: Performed By: #### DARIEL Bright BCA, 01091-7 #### [facility] ([id number]) [address] [place] [address] 95263 Monocytes (Bld) [#/Vol] 0.9 10*3/uL Normal 0-0.9 [facility] Comment on above: Performed By: #### DARIEL Bright BCA, 07303-0 #### [facility] ([id number]) [address] [place] [address] 18474 Monocytes/100 WBC (Bld) 11.4 % Normal [facility] Comment on above: Performed By: #### DARIEL Bright BCA, 42916-9 #### [facility] ([id number]) [address] [place] [address] 58042 Neutrophils/100 WBC (Bld) 56.4 % Normal [facility] Comment on above: Performed By: #### DARIEL Bright BCA, 17876-4 #### [facility] ([id number]) [address] [place] [address] 51276 Platelet mean volume (Bld) [Entitic vol] 8.0 fL Normal 7-12 [facility] Comment on above: Performed By: #### DARIEL Bright BCA, 95750-0 #### [facility] ([id number]) [address] [place] [address] 31388 Platelets (Bld) [#/Vol] 323 10*3/uL Normal 150-450 [facility] Comment on above: Performed By: #### C DARIEL RAMEY, 02239-2 #### [facility] ([id number]) [address] [place] [address] 86374 RBC COUNT 5.30 X10E12/L Normal 4.10-5.70 [facility] Comment on above: Performed By: #### C DARIEL RAMEY, 91771-1 #### [facility] ([id number]) [address] [place] [address] 95443 WBC (Bld) [#/Vol] 7.7 10*3/uL Normal 4.0-11.0 [facility] Comment on above: Performed By: #### Deangelo RAMEY [facility], 15465-4 #### [facility] ([id number]) [address] [place] [address] 47095 Troponin I.cardiac High sens itivity method [Mass/Vol]on 10-15-2023 1 HOUR TROP I, HIGH SENSITIVITY 3 ng/L Normal <21 [facility] Comment on above: Performed By: #### 8 [id number] #### [facility] ([id number]) [address] [place] [address] 87826 TROPONIN I, HIGH SENSITIVITY 2 ng/L Normal <21 [facility] Comment on above: Performed By: #### DARIEL Bright BCA, 17708-5 #### [facility] ([id number]) [address] [place] [address] 99356 XR CHEST 1 VWon 10-15-2023 XR CHEST 1 VW XR CHEST 1 VW STUDY: XR CHEST 1 VW INDICATION: Shortness of breath. COMPARISON: 09/22/2023 FINDINGS/IMPRESSION: * No acute cardiopulmonary process, by radiograph. Finalized by Koffi Dobbs on 10/15/2023 1:59 PM Normal [facility] COVID CepheidOrdered By: Benjamin Gordon on 09-01-2023 SARS-CoV-2 (COVID-19) Ab IA Ql Negative Negative [facility] Comment on above: This is a duplicate Fonemesh[employer] Xpert Xpress CoV-2/Flu/RSV Plus RNA by RT-PCR result to be used for statistical tracking purpose only. SARS-CoV-2 (COVID-19) RNA ISABEL+probe Ql (Unsp spec) [facility] Streptococcus pyogenes antig en detectionOrdered By: Damian Gordon on 09-01-2023 S. pyogenes Ag Ql (Unsp spec) [facility] Cholesterol [Mass/volume] in Serum or PlasmaOrdered By: Pankaj Britton on 01-13-2022 Cholesterol [Mass/Vol] 128 mg/dL 140-200 [facility] Comment on above: Chol less than 200 m g/dl low risk Chol 201-239 mg/dl borderline risk Chol 240 mg/dl and greater high risk Cholesterol in LDL Calc [Mas s/Vol]Ordered By: Pankaj Britton on 01-13-2022 Cholesterol in LDL [Mass/Vol] 49 mg/dL 0-100 [facility] Comment on above: LDL ATP III CLASSIFI CATION LDL less than 100 mg/dL Optimal LDL 100-129 mg/dL Near or above optimal LDL 130-159 mg/dL Borderline high LDL 160-189 mg/dL High LDL greater than 189 mg/dL Very high Cholesterol in VLDL Calc [Ma ss/Vol]Ordered By: Pankaj Britton on 01-13-2022 Cholesterol in VLDL [Mass/Vol] 10 mg/dL [facility] No Panel InformationOrdered By: Pankaj Britton on 01-13-2022 25-Hydroxy Vitamin D Total 18.9 ng/mL 30-100 [facility] Comment on above: VITAMIN D STATUS 25( OH)VITAMIN D RANGE (ng/mL) Deficient <20 Insufficient 20 to <30 Sufficient 30 to 100 Reference: Bharath MF,Carissa NC, Domi BECKER, et al. Evaluation,treatment, and prevention of vitamin D deficiency; an Endocrine Society clinical practice guideline. JCEM. 2010; 96(7):1911-30. Serum or plasma high density lipoprotein (HDL) cholesterol measurementOrdered By: Pankaj Britton on 01-13-2022 Cholesterol in HDL [Mass/Vol] 68 mg/dL 29-71 [facility] Comment on above: HDL CHOL ATP-III CLA SSIFICATION Cardiovascular Risk HDL > or equal to 60 mg/dL LOW HDL < 40 mg/dL HIGH Serum or plasma total choles terol/high density lipoprotein (HDL) cholesterol mass ratOrdered By: Pankaj Britton on 01-13-2022 Cholesterol.total/Chol esterol in HDL [Mass ratio] 1.9 {ratio} <5.0 [facility] TSH DL <= 0.005 mIU/L QnOrde red By: Pankaj Britton on 01-13-2022 TSH Qn 0.57 m[IU]/L 0.45-5.33 [facility] Triglyceride [Mass/volume] i n Serum or PlasmaOrdered By: Pankaj Britton on 01-13-2022 Triglyceride [Mass/Vol] 54 mg/dL 35-149 [facility] Comment on above: TRIG ATP III CLASSIF ICATION TRIG less than 150 mg/dL Normal TRIG 150-199 mg/dL Borderline high TRIG 200-500 mg/dL High TRIG greater than 500 mg/dL Very high Standard traceable to the Center for Disease Conrtrol and Prevention (CDC) test method. CARDIAC BERNA ADMITon 021 CK [Catalytic activity/Vol] 481 U/L Critically high 55-170 [facility] Comment on above: Result Comment: test repeated, critical value verified Performed By: #### C ROCKY #### [facility] [address] [address] Esau Farrar CK.MB [Mass/Vol] 2.31 ng/mL Normal <=2.37 [facility] Comment on above: Performed By: #### C ROCKY #### [facility] [address] [id number] Esau Farrar HSTROP 6.1 pg/mL Normal 4.0-42.2 [facility] Comment on above: Result Comment: CUT- OFF POINTS HAVE BEEN ESTABLISHED BASED ON THE FOURTH UNIVERSAL DEFINITIONS OF MYOCARDIAL INFARCTION. THE UPPER REFERENCE LIMIT (URL) OF TROPONIN, DEFINED THE 99TH PERCENTILE OF cTnI DISTRIBUTION IN A REFERENCE POPULATION, HAS BEEN CONFIRMED THE DECISION THRESHOLD FOR ND DIAGNOSIS. Performed By: #### C MADM #### [facility] [address] [place] [address] Esau Farrar MAHESH 92.0 ng/mL Normal <=121.0 [facility] Comment on above: Performed By: #### C MADM #### [facility] [address] [place] [address] Esau Farrar CBC AUTO DIFFon 10-21-2020 BASO # 0.0 103/ul Normal 0.0-0.1 [facility] Comment on above: Performed By: #### C BC #### [facility] [address] [place] [address] Esau Farrar Basophils/100 WBC (Bld) 0.4 % Normal 0.2-2.0 [facility] Comment on above: Performed By: #### C BC #### [facility] [address] [place] [address] Esau Farrar EO # 0.0 103/ul Normal 0.0-0.7 [facility] Comment on above: Performed By: #### C BC #### [facility] [address] [place] [address] Esau Farrar Eosinophils/100 WBC (Bld) 0.0 % Critically low 0.9-7.0 [facility] Comment on above: Performed By: #### C BC #### [facility] [address] [place], [place] [phone] Esau Farrar Erythrocyte distribution width (RBC) [Ratio] 12.4 % Normal 11.0-15.0 [facility] Comment on above: Performed By: #### C BC #### [facility] [address] [place] [address] Esau Farrar Hematocrit (Bld) [Volume fraction] 44.6 % Normal 42.0-54.0 [facility] Comment on above: Performed By: #### C BC #### [facility] [address] [place], [place] [address] Esau Leni Hemoglobin (Bld) [Mass/Vol] 15.8 g/dL Normal 14.0-18.0 [facility] Comment on above: Performed By: #### C BC #### [facility] [address] [place] [address] Esau Leni IG # 0.02 10e3/ul Normal 0.00-0.03 [facility] Comment on above: Performed By: #### C BC #### [facility] [address] [place] [address] Esau Leni IG % 0.2 % Normal 0.0-0.5 [facility] Comment on above: Performed By: #### C BC #### [facility] [address] [place] [address] Esau Leni LYMPH # 1.7 103/ul Normal 1.2-3.8 [facility] Comment on above: Performed By: #### C BC #### [facility] [address] [place] [address] Esau Farrar Lymphocytes/100 WBC (Bld) 16.0 % Critically low 20.5-60.0 [facility] Comment on above: Performed By: #### C BC #### [facility] [address] [place], [place] [address] Esau Farrar MANUAL DIFF REQ NO Normal [facility] Comment on above: Performed By: #### C BC #### [facility] [address] [place], [place] [address] Esauronda Siddiqien MCH (RBC) [Entitic mass] 29.8 pg Normal 25.9-34.0 [facility] Comment on above: Performed By: #### C BC #### [facility] [address] [place], [place] [address] Esauronda Farrar MCHC (RBC) [Mass/Vol] 35.4 g/dL Critically high 29.9-35.2 [facility] Comment on above: Performed By: #### C BC #### [facility] [address] [place], [place] [address] Esauronda Siddiqien MCV (RBC) [Entitic vol] 84.2 fL Normal 80.0-94.0 [facility] Comment on above: Performed By: #### C BC #### [facility] [address] [id number] Esau Leni MONO # 0.8 103/ul Normal 0.3-0.8 [facility] Comment on above: Performed By: #### C BC #### [facility] [address] [id number] Esau Leni Monocytes/100 WBC (Bld) 7.9 % Normal 1.7-12.0 [facility] Comment on above: Performed By: #### C BC #### [facility] [address] [place], [place] [address] Esau Leni NEUT # 7.9 103/ul Critically high 1.4-6.5 [facility] Comment on above: Performed By: #### C BC #### [facility] [address] [place], [place] [address] Esau Leni Neutrophils/100 WBC (Bld) 75.5 % Critically high 43.0-75.0 [facility] Comment on above: Performed By: #### C BC #### [facility] [address] [id number] Esauronda Farrar Platelet mean volume (Bld) [Entitic vol] 10.0 fL Normal 9.5-13.5 [facility] Comment on above: Performed By: #### C BC #### [facility] [address] [id number] Esau Leni PLT 409 103/ul Normal 150-450 [facility] Comment on above: Performed By: #### C BC #### [facility] [address] [place], [place] [address] Esau Leni RBC 5.30 106/ul Normal 4.70-6.10 [facility] Comment on above: Performed By: #### C BC #### [facility] [address] [place] [address] Esau Farrar WBC 10.5 103/ul Normal 4.0-11.0 [facility] Comment on above: Performed By: #### C BC #### [facility] [address] [place] [address] Esau Farrar DRUG SCREEN RAPID (URINE)on 10-21-2020 AMP Positive Abnormal NEGATIVE [facility] Comment on above: Performed By: #### E RUR, DRUGRPD, UMICRO #### [facility] [address] [place] [address] Esau Farrar BAR Negative Normal NEGATIVE [facility] Comment on above: Performed By: #### E RUR, DRUGRPD, UMICRO #### [facility] [address] [place] [address] Esau Farrar BUP Negative Normal NEGATIVE [facility] Comment on above: Performed By: #### E RUR, DRUGRPD, UMICRO #### [facility] [address] [place] [address] Esau Farrar BZO Negative Normal NEGATIVE [facility] Comment on above: Performed By: #### E RUR, DRUGRPD, UMICRO #### [facility] [address] [place] [address] Esau Farrar KYM Negative Normal NEGATIVE [facility] Comment on above: Performed By: #### E RUR, DRUGRPD, UMICRO #### [facility] [address] [place] [address] Esau Farrar CUT-OFFS SEE BELOW Normal [facility] Comment on above: Result Comment: AMP (Amphetamine): 500ng/mL, BAR (Barbituates): 200 ng/mL, BZO (Benzodiazepines): 150 ng/mL, BUP (Buprenorphine): 10 ng/mL, KYM (Cocaine): 150 ng/mL, mAMP (Methamphetamine): 500 ng/mL, MTD (Methadone): 200 ng/mL, OPI (Opiates): 100 ng/mL, OXY (Oxycodone): 100 ng/mL, PCP (Phencyclidine): 25 ng/mL, PPX (Propoxyphene): 300 ng/mL, THC (Cannabinoids): 50 ng/mL, TCA (Trycyclic Antidepressants): 300 ng/mL Performed By: #### E RUR, DRUGRPD, UMICRO #### [facility] [address] [place] [address] Esau Leni DRUG CUT HEADER DRUG CLASS TEST SYSTEM CUT-OFF CONCENTRATIONS ARE FOLLOWS: Normal [facility] Comment on above: Performed By: #### E RUR, DRUGRPD, UMICRO #### [facility] [address] [place] [address] Esau Leni mAMP Positive Abnormal NEGATIVE [facility] Comment on above: Performed By: #### E RUR, DRUGRPD, UMICRO #### [facility] [address] [place] [address] Esau Leni MTD Negative Normal NEGATIVE [facility] Comment on above: Performed By: #### E RUR, DRUGRPD, UMICRO #### [facility] [address] [place] [address] Esau Leni OPI Negative Normal NEGATIVE [facility] Comment on above: Performed By: #### E RUR, DRUGRPD, UMICRO #### [facility] [address] [place] [address] Esau Leni OXY Negative Normal NEGATIVE [facility] Comment on above: Performed By: #### E RUR, DRUGRPD, UMICRO #### [facility] [address] [place] [address] Esau Leni PCP Negative Normal NEGATIVE [facility] Comment on above: Performed By: #### E RUR, DRUGRPD, UMICRO #### [facility] [address] [place] [address] Esau Leni PPX Negative Normal NEGATIVE [facility] Comment on above: Performed By: #### E RUR, DRUGRPD, UMICRO #### [facility] [address] [place] [address] Esau Leni TCA Negative Normal NEGATIVE [facility] Comment on above: Performed By: #### E RUR, DRUGRPD, UMICRO #### [facility] [address] [place] [address] Esau Leni THC Negative Normal NEGATIVE [facility] Comment on above: Performed By: #### BRAYAN REID UMICRO #### [facility] [address] [place] [address] Esau Leni ER URINE PROFILEon 1 Bilirubin Ql (U) MODERATE Abnormal NEGATIVE [facility] Comment on above: Performed By: #### BRAYAN REID UMICRO #### [facility] [address] [place] [address] Esau Leni Clarity (U) SL CLOUDY Abnormal CLEAR [facility] Comment on above: Performed By: #### BRAYAN REID UMICRO #### [facility] [address] [place] [address] Esau Leni Color (U) DK. ORANGE Abnormal YELLOW [facility] Comment on above: Performed By: #### BRAYAN REID UMICRO #### [facility] [address] [place] [address] Esau Leni ERUAHD A micrscopic examination will be performed if indicated. Normal [facility] Comment on above: Performed By: #### BRAYAN REID UMICRO #### [facility] [address] [place] [address] Esau Leni Glucose Ql (U) Negative Normal NEGATIVE [facility] Comment on above: Performed By: #### BRAYAN REID UMICRO #### [facility] [address] [place] [address] Esau Leni Hemoglobin Ql (U) Negative Normal NEGATIVE [facility] Comment on above: Performed By: #### BRAYAN REID UMICRO #### [facility] [address] [place] [address] Esau Leni Ketones Ql (U) 15 mg/dl Abnormal NEGATIVE [facility] Comment on above: Performed By: #### BRAYAN REID UMICRO #### [facility] [address] [place] [address] Esau Leni LEUKOCYTES Negative Normal NEGATIVE [facility] Comment on above: Performed By: #### BRAYAN REID UMICRO #### [facility] [address] [place] [address] Esau Leni Nitrite Ql (U) Negative Normal NEGATIVE [facility] Comment on above: Performed By: #### BRAYAN REID UMICRO #### [facility] [address] [place] [address] Esau Leni pH (U) 6.0 [pH] Normal 5-9 [facility] Comment on above: Performed By: #### BRAYAN REID UMICRO #### [facility] [address] [place] [address] Esau Farrar Protein (U) [Mass/Vol] 30 mg/dL Abnormal NEGAT JUAN/ TRACE [facility] Comment on above: Performed By: #### BRAYAN REID UMICRO #### [facility] [address] [place] [address] Esau Farrar SPEC GRAVITY >=1.030 Abnormal 1.005-<=1.025 [facility] Comment on above: Performed By: #### BRAYAN REID UMICRO #### [facility] [address] [place] [address] Esau Farrar UR MICRO IND INDICATED Normal [facility] Comment on above: Performed By: #### BRAYAN REID UMICRO #### [facility] [address] [place] [address] Esau Farrar Urobilinogen Qn (U) 2.0 {Brandi'U}/dL Abnormal 0.2 - 1. 0 [facility] Comment on above: Performed By: #### BRAYAN REID UMICRO #### [facility] [address] [place] [address] Esau Farrar POINT OF CARE GLUCOSEon 06- Glucose [Mass/Vol] 111 mg/dL Critically high 74-[address] [facility] Comment on above: Result Comment: Foll ow Protocol Performed By: #### P OCGLUC #### [facility] [address] [place], [place] [address] Esau Farrar PROF 14(COMP METB)on 021 Albumin [Mass/Vol] 4.6 g/dL Normal 3.5-5.0 [facility] Comment on above: Performed By: #### C MP #### [facility] [address] [place], [place] [address] Esau Leni Albumin/Globulin [Mass ratio] 1.1 {ratio} Normal [facility] Comment on above: Performed By: #### C MP #### [facility] [address] [place], [place] [address] Esau Leni ALP [Catalytic activity/Vol] 64 U/L Normal 38-126 [facility] Comment on above: Performed By: #### C MP #### [facility] [address] [place], [place] [address] Esau Leni ALT [Catalytic activity/Vol] 51 U/L Normal 21-72 [facility] Comment on above: Performed By: #### C MP #### [facility] [address] [place], [place] [address] Esau Leni Anion gap [Moles/Vol] 18.0 mmol/L Normal [facility] Comment on above: Performed By: #### C MP #### [facility] [address] [place], [place] [address] Esau Leni AST [Catalytic activity/Vol] 32 U/L Normal 17-59 [facility] Comment on above: Performed By: #### C MP #### [facility] [address] [place], [place] [address] Esau Leni Bilirubin [Mass/Vol] 2.0 mg/dL Critically high 0.2-1.3 [facility] Comment on above: Performed By: #### C MP #### [facility] [address] [place], [place] [address] Esau Leni Calcium [Mass/Vol] 9.7 mg/dL Normal 8.4-10.2 [facility] Comment on above: Performed By: #### C MP #### [facility] [address] [id number] Esau Leni Chloride [Moles/Vol] 104 mmol/L Normal 98-107 [facility] Comment on above: Performed By: #### C MP #### [facility] [address] [place], [place] [address] Esau Leni CO2 [Moles/Vol] 24.4 mmol/L Normal 22.0-30.0 [facility] Comment on above: Performed By: #### C MP #### [facility] [address] [place], [place] [address] Esau Leni Creatinine [Mass/Vol] 1.06 mg/dL Normal 0.66-1.25 [facility] Comment on above: Performed By: #### C MP #### [facility] [address] [place], [place] [address] Esau Leni EGFR-AF BELARUSIAN >60 Normal >=60 [facility] Comment on above: Performed By: #### C MP #### [facility] [address] [place], [place] [address] Esau Leni EGFR-NON AF BELARUSIAN >60 Normal >=60 [facility] Comment on above: Performed By: #### C MP #### [facility] [address] [place], [place] [address] Esau Leni Globulin (S) [Mass/Vol] 4.1 g/dL Normal [facility] Comment on above: Performed By: #### C MP #### [facility] [address] [place] [address] Esau Leni Glucose [Mass/Vol] 115 mg/dL Critically high 74-[address] [facility] Comment on above: Performed By: #### C MP #### [facility] [address] [place] [address] Esau Leni Potassium [Moles/Vol] 3.4 mmol/L Normal 3.4-5.0 [facility] Comment on above: Performed By: #### C MP #### [facility] [address] [place] [address] Esau Leni Protein [Mass/Vol] 8.7 g/dL Critically high 6.1-8.[address] [facility] Comment on above: Performed By: #### C MP #### [facility] [address] [place] [address] Esau Farrar Sodium [Moles/Vol] 143 mmol/L Normal 137-145 [facility] Comment on above: Performed By: #### C MP #### [facility] [facility] [address] [id number] Esau Farrar Urea nitrogen [Mass/Vol] 14.0 mg/dL Normal 9.0-20.0 [facility] Comment on above: Performed By: #### C MP #### [facility] [address] [place] [address] Esau Farrar Urea nitrogen/Creatinine [Mass ratio] 13.2 mg/mg Normal [facility] Comment on above: Performed By: #### C MP #### [facility] [address] [place] [address] Esau Farrar PROTIMEon 10-21-2020 INR Coag (PPP) [Relative time] 1.05 {INR} Normal [facility] Comment on above: Performed By: #### P TT, PT #### [facility] [address] [place], [place] [phone] Esau Farrar INR GUIDELINES SEE BELOW Normal [facility] Comment on above: Result Comment: SANDHYA RED INR: 2.0 - 3.0 CONDITIONS NOT LISTED BELOW 2.5 - 3.5 FOR PROSTHETIC HEART VALVE REPLACEMENT 2.5 - 3.5 RECURRENT THROMBOSIS Performed By: #### P TT, PT #### [facility] [address] [place] [address] Esau Farrar PT Coag (PPP) [Time] 11.4 s Normal 9.0-11.6 [facility] Comment on above: Performed By: #### P TT, PT #### [facility] [address] [place] [address] Esau Farrar PTTon 10-21-2020 aPTT Coag (Bld) [Time] 27.0 s Normal 22.3-36.2 [facility] Comment on above: Performed By: #### P TT, PT #### [facility] [address] [id number] Esau Leni URINE MICROSCOPIC ONLYon BACTERIA TRACE Abnormal NONE SEEN [facility] Comment on above: Performed By: #### E RUR, DRUGRPD, UMICRO #### [facility] [address] [place], [place] [phone] Esau Leni Bacteria identified Cx Nom (U) NOT INDICATED Normal [facility] Comment on above: Performed By: #### E RUR, DRUGRPD, UMICRO #### [facility] [address] [place], [place] [id number] Esau Leni CAST NONE SEEN Normal NONE SEEN [facility] Comment on above: Performed By: #### E RUR, DRUGRPD, UMICRO #### [facility] [address] [place], [place] [address] Esau Leni Crystals LM Nom (Urine sed) NONE SEEN Normal NONE SEEN [facility] Comment on above: Performed By: #### E RUR, DRUGRPD, UMICRO #### [facility] [address] [place], [place] [phone] Esau Leni Epithelial cells LM Ql (Urine sed) RARE Normal NONE SEEN /RARE [facility] Comment on above: Performed By: #### E RUR, DRUGRPD, UMICRO #### [facility] [address] [place], [place] [address] Esau Leni MUCOUS LARGE Abnormal NONE SEEN [facility] Comment on above: Performed By: #### E RUR, DRUGRPD, UMICRO #### [facility] [address] [place] [address] Esau Leni RBC 0-2 Normal 0-2 [facility] Comment on above: Performed By: #### E RUR, DRUGRPD, UMICRO #### [facility] [address] [place], [place] [address] Esau Leni WBC 0-2 Abnormal NONE SEEN [facility] Comment on above: Performed By: #### E RUR, DRUGRPD, UMICRO #### [facility] [address] [place], [place] [address] Esau Farrar HCV RNA Qnt-Boiseon HepC RNA PCR Qnt-[place] 366106 IU/mL Abnormal Undetected B [facility] Comment on above: Result Comment: Resu lt in log IU/mL is 5.19. ADDITIONAL INFORMATION The quantification range of this assay is 15 to 100,000,000 IU/mL (1.18 log to 8.00 log IU/mL). Testing was performed using the buck HCV test ([employer] with the buck 2threads0 System. Test Performed by: [place] [address] Furnace Repairer Helper: Tonny Lobo M.D. Ph.D.; CLIA# [id number] Performed By: #### C [id number] #### [facility] [address] [place] [address] RPR Screenon 09-30-2020 RPR Ql Non-Reactive Normal Non-Reactive [facility] Comment on above: Performed By: #### C [id number] #### [facility] [address] [place] [address] .Fentanyl Scrn wo Conf,Uron 09-28-2020 Ur Fentanyl Scrn Negative Normal NEG <1.0 [facility] Comment on above: Result Comment: Urin e sample is presumptive positive for fentanyl. The [employer] SEFRIA Fentanyl Urine Enzyme Immunoassay provides only a preliminary screening result. More specific testing via GC-MS or LC-MS is required in order to obtain a confirmed analytical result. Contact the laboratory to request confirmation testing if needed. This test is intended for medical purposes only and is not intended for any other purpose (i.e. legal, employment, pain management). Disclaimers: Trazadone and m-CPP: Patients prescribed trazadone on a routine basis produce metabolites that can cause false positive fentanyl results. Methamphetamine: Elevated levels of methamphetamine in urine may cause a false positive fentanyl result. A positive Amphetamine Screen result will indicate the presence of methamphetamine Performed By: #### C [id number] #### [address] [address] Ur Fentanyl Scrn Qnt 0.46 ng/mL Normal <=0.99 [facility] Comment on above: Performed By: #### C [id number] #### [address] [address] .UA Microscp Aon 09-28-2020 UA Mucus Present Abnormal Absent [facility] Comment on above: Performed By: #### T SH #### [address] [address] UA RBC Quant 2 /HPF Normal 0-5 [facility] Comment on above: Performed By: #### T SH #### [address] [address] UA WBC Quant 10 /HPF High 0-5 [facility] Comment on above: Performed By: #### T SH #### [address] [address] .eGFRon 09-28-2020 eGFR AA >60 Normal >=60 [facility] Comment on above: Result Comment: See comment. Performed By: #### E GFR #### [address] [address] eGFR Non-AA >60 Normal >=60 [facility] Comment on above: Result Comment: Stag es of Chronic Kidney Disease GFR Stage 3a Mild to moderate loss of kidney function 59 to 45 Stage 3b Moderate to severe loss of kidney function 44 to 33 Stage 4 Severe loss of kidney function 29 to 15 Stage 5 Kidney failure Less than 15 GFR calculated using the CKD-EPI Creatinine Equation (2009): eGFR = 141 X min(SCr/?, 1)? X max(SCr /?, 1)-1.209 X 0.993Age X 1.018 [if female] X 1.159 [if Black] Abbreviations/Units: eGFR (estimated glomerular filtration rate) = mL/min/1.73 m2 SCr (standardized serum creatinine) = mg/dL ? = 0.7 (females) or 0.9 (males) ? = -0.329 (females) or -0.411 (males) min = indicates the minimum of SCr/? or 1 max = indicates the maximum of SCr/? or 1 age = years Performed By: #### E GFR #### [facility] [address] [place] [address] AMI 12Hron 09-28-2020 12 Hour CPK 595 ng/mL High 49-397 [facility] Comment on above: Performed By: #### C [id number] #### [facility] [address] [place] [address] Troponin I.cardiac [Mass/Vol] 0.16 ng/mL Critically abnormal 0.00-0.03 [facility] Comment on above: Result Comment: Test completion time: 1650 Called date and time: 09/28/2020 16:50:34 EDT Result called to and read back by: Rubi ALONZO ICU (First, Last, Title, Location) An increased Troponin-I value, in the absence of myocardial ischemia, may indicate other etiologies of cardiac damage. Performed By: #### C [id number] #### [facility] [address] [place] [address] [id number] 09-28-2020 Troponin I.cardiac [Mass/Vol] 0.21 ng/mL Critically abnormal 0.00-0.03 [facility] Comment on above: Result Comment: Test completion time: 1230 Called date and time: 09/28/2020 12:33:14 EDT Result called to and read back by: Alana Martinez RN ICU (First, Last, Title, Location) An increased Troponin-I value, in the absence of myocardial ischemia, may indicate other etiologies of cardiac damage. Performed By: #### C [id number] #### [facility] [address] [place] [address] 6 Hour Myoglobin 35.7 ng/mL Normal 17.4-105.7 [facility] Comment on above: Performed By: #### C D:[id number] #### [facility] [address] [place] [address] CBCon 09-28-2020 Erythrocyte distribution width (RBC) [Ratio] 13.1 % Normal 11.6-14.8 [facility] Comment on above: Performed By: #### C [id number] #### [facility] [address] [place] [address] Hematocrit (Bld) [Volume fraction] 43.7 % Normal 41.0-53.0 [facility] Comment on above: Performed By: #### C [id number] #### [facility] [address] [place] [address] Hemoglobin (Bld) [Mass/Vol] 15.4 g/dL Normal 13.5-17.5 [facility] Comment on above: Performed By: #### C [id number] #### [facility] [address] [place] [address] MCH (RBC) [Entitic mass] 30.8 pg Normal 27.0-35.0 [facility] Comment on above: Performed By: #### C [id number] #### [facility] [address] [place] [address] MCHC 35.2 % Normal 31.0-37.0 [facility] Comment on above: Performed By: #### C [id number] #### [facility] [address] [place] [address] MCV (RBC) [Entitic vol] 87.7 fL Normal 80.0-100.0 [facility] Comment on above: Performed By: #### C [id number] #### [facility] [address] [place] [address] Platelet 264 x10*3/mcL Normal 150-350 [facility] Comment on above: Performed By: #### C [id number] #### [facility] [address] [place] [address] Platelet mean volume (Bld) [Entitic vol] 7.4 fL Normal 6.7-10.6 [facility] Comment on above: Performed By: #### C [id number] #### [facility] [address] [place] [address] RBC 4.98 x10*6/mcL Normal 4.30-5.80 [facility] Comment on above: Performed By: #### C [id number] #### [facility] [address] [place] [address] WBC 6.9 x10*3/mcL Normal 4.5-11.0 [facility] Comment on above: Performed By: #### C [id number] #### [facility] [address] [place] [address] CMPon 09-28-2020 Albumin [Mass/Vol] 4.4 g/dL Normal 3.2-4.9 [facility] Comment on above: Performed By: #### C [id number] #### [facility] [address] [place] [address] Albumin/Globulin [Mass ratio] 1.2 {ratio} Normal 1.1-2.2 [facility] Comment on above: Performed By: #### C [id number] #### [facility] [address] [place] [address] Alk Phos 62 IU/L Normal 32-91 [facility] Comment on above: Performed By: #### C [id number] #### [facility] [address] [place] [address] ALT [Catalytic activity/Vol] 44 U/L Normal 17-63 [facility] Comment on above: Performed By: #### C [id number] #### [facility] [address] [place] [address] Anion gap [Moles/Vol] 16 mmol/L Normal 7-17 [facility] Comment on above: Performed By: #### C D:[id number] #### [facility] [address] [place] [address] AST [Catalytic activity/Vol] 44 U/L High 15-41 [facility] Comment on above: Performed By: #### C D:[id number] #### [facility] [address] [place] [address] Bili Total 2.3 mg/dL High 0.3-1.2 [facility] Comment on above: Performed By: #### C D:[id number] #### [facility] [address] [place] [address] Calcium [Mass/Vol] 9.0 mg/dL Normal 8.5-10.3 [facility] Comment on above: Performed By: #### C D:[id number] #### [facility] [address] [place] [address] Chloride [Moles/Vol] 103 mmol/L Normal 98-110 [facility] Comment on above: Performed By: #### C [id number] #### [facility] [address] [place] [address] CO2 [Moles/Vol] 24 mmol/L Normal 22-32 [facility] Comment on above: Performed By: #### C D:[id number] #### [facility] [address] [place] [address] Creatinine [Mass/Vol] 0.68 mg/dL Normal 0.61-1.24 [facility] Comment on above: Performed By: #### C D:[id number] #### [facility] [address] [place] [address] Glucose [Mass/Vol] 88 mg/dL Normal 70-99 [facility] Comment on above: Performed By: #### C [id number] #### [facility] [address] [place] [address] Potassium [Moles/Vol] 3.8 mmol/L Normal 3.4-4.8 [facility] Comment on above: Performed By: #### C [id number] #### [facility] [address] [place] [address] Protein [Mass/Vol] 8.0 g/dL Normal 6.5-8.1 [facility] Comment on above: Performed By: #### C D:[id number] #### [facility] [address] [place] [address] Sodium [Moles/Vol] 139 mmol/L Normal 133-142 [facility] Comment on above: Performed By: #### C [id number] #### [facility] [address] [place] [address] Urea nitrogen [Mass/Vol] 25 mg/dL Normal 8-26 [facility] Comment on above: Performed By: #### C D:[id number] #### [facility] [address] [place] [address] Urea nitrogen/Creatinine [Mass ratio] 36.8 mg/mg High 10.0-20.0 [facility] Comment on above: Performed By: #### C [id number] #### [facility] [address] [place] [address] Cardiac Echocardiogram Trans thoracicon 09-28-2020 Cardiac Echocardiogram Transthoracic TRANSTHORACIC ECHOCARDIOGRAM Study Date/Time: Sep 28 2020 2:18PM BP: 97 / 63 HR: 65 bpm HT/WT: 165 cm (65 in) / 74 kg (162.8 lb) BSA/BMI: 1.81 m^2 / 27.2 kg/m^2 ORDERING PROVIDER: Paty Daniel INTERPRETING PHYSICIAN: Judith Licona MD UNEMPLOYMENT SPECIALIST: Babita Arrington RDCS INDICATIONS: SVT, Abnormal EKG. CONCLUSIONS SUMMARY: 1. Left ventricle: Systolic function is normal. The estimated ejection fraction is 60-65%. 2. Normal left ventricular function. 3. Normal right ventricular function. 4. Normal chamber dimensions. 5. Normal valve structure with no significant stenosis or regurgitation. STUDY DATA: M-mode, complete 2D, complete spectral Doppler, and color Doppler. Study status: Routine. Patient status: Inpatient. Location: ICU Procedure: Transthoracic echocardiography was performed. Image quality was adequate. The study was technically limited due to poor acoustic window availability. FINDINGS LEFT VENTRICLE: The cavity size is normal. Wall thickness is normal. Systolic function is normal. The estimated ejection fraction is 60-65%. Wall motion is normal; there are no regional wall motion abnormalities. Left ventricular diastolic function parameters are normal. LEFT ATRIUM: The atrium is normal in size. RIGHT VENTRICLE: The cavity size is normal. Systolic function is normal. Systolic pressure is within the normal range. RIGHT ATRIUM: The atrium is normal in size. MITRAL VALVE: Structurally normal valve. Leaflet motion is normal. Doppler: Transvalvular velocity is within the normal range. There is no evidence for stenosis. There is trivial regurgitation. The valve area by pressure half-time is 3.07 cm^2. The valve area index by pressure half-time is 1.7 cm^2/m^2. AORTIC VALVE: Structurally normal valve. Trileaflet. Cusp separation is normal. Doppler: Transvalvular velocity is within the normal range. There is no stenosis. There is no regurgitation. The LVOT to aortic valve VTI ratio is 0.98. The ratio of LVOT to aortic valve peak velocity is 0.85. The mean systolic gradient is 3.38 mm Hg. The peak systolic gradient is 6.80 mm Hg. TRICUSPID VALVE: Structurally normal valve. Leaflet motion is normal. Doppler: Transvalvular velocity is within the normal range. There is no evidence for stenosis. There is trivial regurgitation. PULMONIC VALVE: Structurally normal valve. Cusp motion is normal. Doppler: Transvalvular velocity is within the normal range. There is no regurgitation. AORTA: Aortic root: The aortic root is not dilated. PERICARDIUM: There is no pericardial effusion. SYSTEMIC VEINS: Inferior vena cava: The vessel is normal in size. The respirophasic diameter changes are in the normal range (greater than or equal to 50%). Measurements Left ventricle Value Reference LV ID, ED, PLAX, chordal 4.69 cm LV ID, ES, PLAX maximal 3.09 cm LV fx shortening, PLAX 34.09 % 25 - 43 LV PW thickness, ES, PLAX 1.23 cm LV PW thickness, ED 0.8 cm 0.6 - 1.0 LV E/e', medial 5.93 LVOT Value Reference LVOT peak velocity, S 1.11 m/sec LVOT VTI, S 18.58 cm LVOT peak gradient, S 4.9 mm Hg Ventricular septum Value Reference IVS thickness, ED 0.9 cm 0.6 - 1.0 IVS thickness, ES 1.3 cm Right ventricle Value Reference RV ID, ED, PLAX 2.49 cm Left atrium Value Reference LA volume/bsa, ES, 2-p 18.2 ml/m^2 LA ID, A-P, ES, MM 3.21 cm 3.00 - 4.00 LA/aortic root ratio, MM 1.09 Aortic valve Value Reference Aortic valve peak velocity, S 1.30 m/sec Aortic valve mean velocity, S 0.82 m/sec Aortic mean gradient, S 3.38 mm Hg Aortic peak gradient, S 6.80 mm Hg Mitral valve Value Reference Mitral E-wave peak velocity 0.6 m/sec Mitral A-wave peak velocity 0.5 m/sec Mitral deceleration time 247.0 ms Mitral pressure half-time 72 ms Mitral E/A ratio, peak 1.21 Mitral valve area, PHT, DP 3.07 cm^2 Pulmonic valve Value Reference Pulmonic valve peak velocity, S 0.72 m/sec Pulmonic valve mean velocity, S 0.72 m/sec Pulmonic peak gradient, S 2.1 mm Hg Aortic root Value Reference Aortic root ID STJ, ED 2.54 cm Aortic root ID, ED, MM 2.95 cm Legend: (L) and (H) berna values outside specified reference range. Electronically signed by Anish, (more content not included)... Normal [facility] HIV1/2 Ab,Ag Scnon HIV-1/2 Ab,Ag 0.10 [facility] Comment on above: Performed By: #### C [id number] #### [facility] [address] [place] [address] HIV-1/2 Ab,Ag Interp Normal Negative [facility] Comment on above: Result Comment: N egative Negative Performed By: #### C [id number] #### [facility] [address] [place] [address] HepAcute Profon 09-28-2020 HCV Signal to Cutoff Ratio 32.20 [facility] Comment on above: Performed By: #### H PSC #### [facility] [address] [place] [address] Hep A IgM 0.02 Normal [facility] Comment on above: Performed By: #### H PSC #### [address] [place] [address] Hep A IgM Interp Normal Negative [facility] Comment on above: Result Comment: Ne gative Negative Performed By: #### H PSC #### [address] [place] [address] Hep B Core IgM 0.04 Normal [facility] Comment on above: Performed By: #### H PSC #### [address] [address] Hep B Core IgM Interp Normal Negative [facility] Comment on above: Result Comment: Ne gative Negative Performed By: #### H PSC #### [address] [address] Hep Bs Ag Interp Normal Negative [facility] Comment on above: Result Comment: N egative Negative Performed By: #### H PSC #### [address] [address] Hep C IgG Interp Abnormal Negative [facility] Comment on above: Result Comment: Re active This specimen is reactive by the [facility] 3600 Hepatitis C Antibody Screen. Anti-HCV IgG detected. Patient is presumed to be infected with HCV, state or associated disease not determined. Confirmation of this screening result is required. Per CDC guidelines, reactive antibody screens reflex to Hepatitis C Virus (HCV) RNA Detection and Quantification by RT-PCR. Reactive Performed By: #### H PSC #### [address] [address] MRSA, PCRon 09-28-2020 Methicillin Resistant Staph aurus(MRSA) Positive Normal [facility] Comment on above: Result Comment: Test completion time: 1150 Called date and time: 09/28/2020 11:53:26 EDT Result called to and read back by: STEFAN MARTINEZ RN (First, Last, Title, Location) The [employer] Xpert MRSA Assay is a qualitative in vitro diagnostic test designed for rapid detection of Methicillin-Resistant Staphylococcus aureus (MRSA) from nasal swabs in patients at risk for nasal colonization.The test utilizes automated real-time polymerase chain reaction (PCR) to detect MRSA DNA,because the detection of MRSA is dependent on the number of organisms present. A positive test result does not necessarily indicate the presence of viable organism. It is however,presumptive for the presence of MRSA.Test results might be affected by concurrent antibiotic therapy. Therefore, therapeutic success or failure cannot be assessed using this test because DNA might persist following antimicrobial therapy. Mutations or polymorphisms in primer or probe binding regions may affect detection of new or unknown MRSA variants resulting in a false negative result. Results from the Xpert MRSA Assay should be interpreted in conjunction with other laboratory and clinical data available to the clinician. Performed By: #### M RSAPC #### [address] [address] Magnesiumon 09-28-2020 Magnesium [Mass/Vol] 2.5 mg/dL High 1.7-2.4 [facility] Comment on above: Performed By: #### T SH #### [address] [address] PTon 09-28-2020 INR Coag (PPP) [Relative time] 1.0 {INR} Normal <=3.5 [facility] Comment on above: Result Comment: INR has no normal range. INR Therapeutic range is: 2.0-3.0 (AF, CVA, TIAs, DVT prophylaxis, acute DVT) 2.5-3.5 (Mech heart valves, recurrent thrombosis/emboli) Performed By: #### P TINR #### [address] [address] PT Coag (PPP) [Time] 11.0 s Normal 9.4-12.1 [facility] Comment on above: Performed By: #### P TINR #### [address] [address] PTTon 09-28-2020 aPTT Coag (Bld) [Time] 23.4 s Normal 20.2-27.0 [facility] Comment on above: Performed By: #### T SH #### [address] [place] [address] Phosphoruson 09-28-2020 Phosphate [Mass/Vol] 3.6 mg/dL Normal 2.5-4.6 [facility] Comment on above: Performed By: #### P HOS #### [address] [place] [address] Progress Note-Nurseon 2020 Progress Note-Nurse Pt was standing in the doorway, asking the check writer when he could go home. The check writer explained Dr White was getting orders in, and social work would provide resources to him for discharge. The patient appeared frustrated with the waiting and stated he has a ride coming to get him. The check writer explained we are getting everything together and should not be longer than an hour. The patient at that time agreed to wait. The check writer walks by the room and sees the curtain moving, looks down the barbour, and the patient walking towards the elevators. Asked patient to come back to the room. He states there's no reason for him to stay anymore because his heart is fine. Junior Accountant Bookkeeper removes IV. The patient asked if there is a form for him to sign so that he can just go. The check writer has the pocket secretary assembler print the AMA form. The patient in his room starts going through cupboards. The check writer asked what he is searching for, and he replies his cigarettes. The check writer goes to the locker and gets cigarettes. The patient signs the AMA form and leaves on his own down the hallway. The check writer contacted [facility] social work to notify them the patient had left and the resources did not need to be brought down. The check writer notified Dr. White that the patient had left before discharge instructions and resources being provided. Electronically signed by Valente Mcdonald 09/28/20 18:58 EDT Normal [facility] TSHon 09-28-2020 TSH Qn 0.76 m[IU]/L Normal 0.45-5.33 [facility] Comment on above: Result Comment: Refe rence Ranges for individuals from to 18 years of age were obtained from The Alondra Gonzalez Handbook (20 ed) published by [facility]. Reference Ranges for Females: Females, 1st Trimester 0.05 ? 3.7 uIU/mL Females, 2nd Trimester 0.31 ? 4.35 uIU/mL Females, 3rd Trimester 0.41 ? 5.18 uIU/mL Performed By: #### T SH #### [facility] [address] [place] [address] UA w Culture if Indon 2020 Color (U) Julianne Normal [facility] Comment on above: Performed By: #### C [id number] #### [employer] [address] [place] [address] Glucose (U) [Mass/Vol] Negative Normal Negative [facility] Comment on above: Performed By: #### C [id number] #### [employer] [address] [place] [address] Ketones Ql (U) 80 mg/dL Abnormal Negative [facility] Comment on above: Performed By: #### C [id number] #### [employer] [address] [place] [address] UA Blood Negative Normal Negative [facility] Comment on above: Performed By: #### C [id number] #### [facility] [employer] [employer] [address] [place] [address] UA Clarity Clear Normal [facility] Comment on above: Performed By: #### C [id number] #### [facility] [employer] [address] [place] [address] UA Leukocyte Esterase Negative Normal Negative [facility] Comment on above: Performed By: #### C [id number] #### [employer] [address] [place] [address] UA Nitrite Negative Normal Negative [facility] Comment on above: Performed By: #### C [id number] #### [facility] [employer] [address] [place] [address] UA pH 6.0 Normal 4.5 - 7.8 [facility] Comment on above: Performed By: #### C [id number] #### [facility] [address] [place] [address] UA Protein 30 mg/dL Abnormal Negative [facility] Comment on above: Performed By: #### C [id number] #### [facility] [address] [place] [address] UA Source Clean Catch Normal [facility] Comment on above: Performed By: #### C [id number] #### [facility] [address] [place] [address] UA Spec Grav 1.028 Normal 1.003-1.035 [facility] Comment on above: Performed By: #### C [id number] #### [facility] [address] [place] [address] UA Urobilinogen 0.2 mg/dL Normal 0.2 - 1.0 [facility] Comment on above: Performed By: #### C [id number] #### [facility] [address] [place] [address] Urobilinogen (U) [Mass/Vol] Negative Normal Negative [facility] Comment on above: Performed By: #### C [id number] #### [facility] [address] [place] [address] UDS Compon 09-28-2020 UA pH 6.0 Normal 4.5 - 7.8 [facility] Comment on above: Performed By: #### T SH #### [address] [address] UA Spec Grav 1.028 Normal 1.003-1.035 [facility] Comment on above: Performed By: #### T SH #### [address] [address] Creatinine [Mass/Vol] 358.0 mg/dL Normal [facility] Comment on above: Performed By: #### T SH #### [address] [address] Ur Amph Scrn Positive Abnormal NEG = <1000 [facility] Comment on above: Result Comment: This unconfirmed positive screening result is to be used for medical treatment purposes only. Unconfirmed screening results must not be used for non-medical purposes. (e.g. employment testing, legal testing). Performed By: #### T SH #### [place] [address] [place] [address] Ur Christine Scrn Negative Normal NEG = <200 [facility] Comment on above: Performed By: #### T SH #### [address] [place] [address] Ur Benzodia Scrn Negative Normal NEG = <200 [facility] Comment on above: Performed By: #### T SH #### [address] [place] [address] Ur Cannab Scrn Negative Normal NEG = <50 [facility] Comment on above: Performed By: #### T SH #### [address] [place] [address] Ur Cocaine Scrn Negative Normal NEG = <300 [facility] Comment on above: Performed By: #### T SH #### [address] [place] [address] Ur Methadone Scn Negative Normal NEG = <300 [facility] Comment on above: Performed By: #### T SH #### [address] [address] Ur Opiate Scrn Negative Normal NEG = <300 [facility] Comment on above: Performed By: #### T SH #### [facility] [address] [place] [address] [place] [address] Ur Oxy Screen Negative Normal NEG = <100 [facility] Comment on above: Performed By: #### T SH #### [address] [place] [address] Ur Oxy Scrn Qnt 19 ng/mL Normal <=99 [facility] Comment on above: Performed By: #### T SH #### [address] [place] [address] Ur PCP Scrn Negative Normal NEG = <25 [facility] Comment on above: Performed By: #### T SH #### [address] [address] CBC with Diffon 11-20-2018 Abs. Basophil 0.10 k/uL Normal 0.0-0.2 [facility] Comment on above: Performed By: #### C DP, CP #### [facility] [place] [place] [address] [employer]ace [employer]aire[employer] Helper: Brandon Lara DO Abs.Neutrophil (Seg) 3.10 k/uL Normal 1.3-9.[address] [facility] Comment on above: Performed By: #### C DP, CP #### [facility] [address] [place] [address] [employer]ace Repairer Helper: Brandon Lara DO Basophils/100 WBC (Bld) 1 % Normal 0-2 [facility] Comment on above: Performed By: #### C DP, CP #### [facility] [address] [place] [address] [employer]: Brandon Lara DO Eosinophils (Bld) [#/Vol] 0.20 10*3/uL Normal 0.0-0.4 [facility] Comment on above: Performed By: #### C DP, CP #### [facility] [address] [place] [address] [employer]per: Brandon Lara DO Eosinophils/100 WBC (Bld) 2 % Normal 0-4 [facility] Comment on above: Performed By: #### C DP, CP #### [facility] [address] [place] [address] [employer]per: Brandon Lara DO Erythrocyte distribution width (RBC) [Ratio] 13.8 % Normal 11.5-14.9 [facility] Comment on above: Performed By: #### C DP, CP #### [facility] [address] [place] [address] [employer]per: Brandon Lara DO Hematocrit (Bld) [Volume fraction] 48.5 % Normal 41-53 [facility] Comment on above: Performed By: #### C DP, CP #### [facility] [place] [place] [address] [employer] Helper: Brandon Lara DO Hemoglobin (Bld) [Mass/Vol] 16.4 g/dL Normal 13.5-17.5 [facility] Comment on above: Performed By: #### C DP, CP #### [facility] [place] [place] [address] [employer] Helper: Brandon Lara DO Lymphocytes (Bld) [#/Vol] 4.90 10*3/uL High 1.0-4.8 [facility] Comment on above: Performed By: #### C DP, CP #### [facility] [address] [place] [address] [employer]per: Brandon Lara DO Lymphocytes/100 WBC (Bld) 52 % High 24-44 [facility] Comment on above: Performed By: #### C JEAN, CP #### [facility] [address] [place] [address] [employer]per: Brandon Lara DO MCH (RBC) [Entitic mass] 30.1 pg Normal 26-34 [facility] Comment on above: Performed By: #### C DP, CP #### [facility] [address] [place] [address] [employer] Helper: Brandon Lara DO MCHC (RBC) [Mass/Vol] 33.8 g/dL Normal 31-37 [facility] Comment on above: Performed By: #### C DP, CP #### [facility] [address] [place], [place] [address] [place] [address] [employer]aire[employer] Helper: Brandon Lara DO MCV (RBC) [Entitic vol] 89.0 fL Normal 80-100 [facility] Comment on above: Performed By: #### C DP, CP #### [facility] [address] [facility] [place] [address] [employer]aire[employer] Helper: Brandon Lara DO Monocytes (Bld) [#/Vol] 1.00 10*3/uL Normal 0.1-1.3 [facility] Comment on above: Performed By: #### C DP, CP #### [facility] [address] [place] [address] [employer] Repaire[employer] Helper: Brandon Lara DO Monocytes/100 WBC (Bld) 11 % High 1-7 [facility] Comment on above: Performed By: #### C DP, CP #### [facility] [place] [place] [address] [employer]ace [employer] Helper: Brandon Lara DO Neutrophil (Seg) 34 % Low 36-66 [facility] Comment on above: Performed By: #### C DP, CP #### [facility] [place] [place] [address] [employer]ace Repairer Helper: Brandon Lara DO Platelet mean volume (Bld) [Entitic vol] 8.4 fL Normal 6.0-12.0 [facility] Comment on above: Performed By: #### C DP, CP #### [facility] [place] [place] [address] [employer] Helper: Brandon Lara DO Platelets (Bld) [#/Vol] 301 10*3/uL Normal 150-450 [facility] Comment on above: Performed By: #### C DP, CP #### [facility] [place] [place] [address] [employer]aire[employer] Helper: Brandon Lara DO RBC (Bld) [#/Vol] 5.45 10*6/uL Normal 4.5-5.9 [facility] Comment on above: Performed By: #### C DP, CP #### [facility] [address] [facility] [place] [address] [employer]aire[employer] Helper: Brandon Lara DO WBC (Bld) [#/Vol] 9.2 10*3/uL Normal 3.5-11.0 [facility] Comment on above: Performed By: #### C DP, CP #### [facility] [place] [place] [address] Furnace Repairer Helper: Brandon Lara DO Abs.Imm.Granulocyte NOT REPORTED Normal 0.00-0.30 [facility] Comment on above: Performed By: #### C DP, CP #### [facility] [address] [place] [address] [employer] Helper: Brandon Lara DO Auto Diff Performed NOT REPORTED Normal [facility] Comment on above: Performed By: #### C DP, CP #### [facility] [place] [place] [address] Furnace Repairer Helper: Brandon Lara DO Immature granulocytes (Bld) [#/Vol] NOT REPORTED Normal 0 [facility] Comment on above: Performed By: #### C DP, CP #### [facility] [address] [place] [address]. [place] [address] [employer] Helper: Brandon Lara DO NRBC Automated NOT REPORTED Normal [facility] Comment on above: Performed By: #### C DP, CP #### [facility] [address] [place] [address] [employer] Helper: Brandon Lara DO Platelets (Bld) [#/Vol] NOT REPORTED Normal [facility] Comment on above: Performed By: #### C DP, CP #### [facility] [address] [place] [address] Furnace Repairer Helper: Brandon Lara DO RBC morphology finding Nom (Bld) NOT REPORTED Normal [facility] Comment on above: Performed By: #### C DP, CP #### [facility] [address] [facility] [place] [address] [employer] Repairer Helper: Brandon Lara DO WBC Morphology NOT REPORTED Normal [facility] Comment on above: Performed By: #### C JEAN, CP #### [facility] [place] [place] [address] Furnace Repairer Helper: Brandon Lara DO Comp Metabolic Profon 2018 (cont.) Normal [facility] Comment on above: Result Comment: Aver age GFR for 20-29 years old: 116 mL/min/1.73sq m Chronic Kidney Disease: <60 mL/min/1.73sq m Kidney failure: <15 mL/min/1.73sq m eGFR calculated using average adult body mass. Additional eGFR calculator available at: http://[email or web address]/multiple_[email or web address].htm Performed By: #### C JEAN, CP #### [facility] [address] [place] [address] Furn[employer] Repaire[employer] Helper: Brandon Lara DO Albumin [Mass/Vol] 4.5 g/dL Normal 3.5-5.2 [facility] Comment on above: Performed By: #### C JEAN, CP #### [facility] [address] [place] [address]. [place] [address] [employer]ace Repaire[employer] Helper: Brandon Lara DO Alkaline Phos 84 U/L Normal 40-129 [facility] Comment on above: Performed By: #### C DP, CP #### [facility] [place] [place] [address] [employer]ace Repaire[employer] Helper: Brandon Lara DO ALT [Catalytic activity/Vol] 29 U/L Normal 5-41 [facility] Comment on above: Performed By: #### C DP, CP #### [facility] [address] [place] [address] Furnace Repairer Helper: Brandon Lara DO Anion gap [Moles/Vol] 13 mmol/L Normal 9-17 [facility] Comment on above: Performed By: #### C DP, CP #### [facility] [address] [place] [address] Furnace Repairer Helper: Brandon Lara DO AST [Catalytic activity/Vol] 21 U/L Normal <40 [facility] Comment on above: Performed By: #### C DP, CP #### [facility] [place] [place] [facility] [place] [address] Furn[employer] Repaire[employer] Helper: Brandon Lara DO Bilirubin Ql (U) 1.00 mg/dL Normal 0.3-1.2 [facility] Comment on above: Performed By: #### C JEAN, CP #### [facility] [place] [facility] [place] [address] Furnace Repairer Helper: Brandon Lara DO Calcium [Mass/Vol] 9.8 mg/dL Normal 8.6-10.4 [facility] Comment on above: Performed By: #### C JEAN, CP #### [facility] [place] [facility] [place] [address] Furnace [employer]airer Helper: Brandon Lara DO Chloride [Moles/Vol] 100 mmol/L Normal 98-[address] [facility] Comment on above: Performed By: #### C DP, CP #### [facility] [address] [place] [address] Furnace Repairer Helper: Brandon Lara DO CO2 [Moles/Vol] 29 mmol/L Normal 20-31 [facility] Comment on above: Performed By: #### C DP, CP #### [facility] [address] [place] [address] Furnace Repairer Helper: Brandon Lara DO Creatinine [Mass/Vol] 0.79 mg/dL Normal 0.70-1.20 [facility] Comment on above: Performed By: #### C DP, CP #### [facility] [address] [place] [address] Furnace Repairer Helper: Brandon Lara DO GFR, Amer >60 Normal >60 [facility] Comment on above: Performed By: #### C DP, CP #### [facility] [place] [place] [address] Furnace Repairer Helper: Brandon Lara DO GFR,non Amer >60 Normal >[address] [facility] Comment on above: Performed By: #### C DP, CP #### [facility] [place] [place] [address] Furnace Repairer Helper: Brandon Lara DO Glucose [Mass/Vol] 95 mg/dL Normal 70-99 [facility] Comment on above: Performed By: #### C DP, CP #### [facility] [place] [facility] [place] [address] Furnace Repairer Helper: Brandon Lara DO Potassium [Moles/Vol] 4.3 mmol/L Normal 3.7-5.3 [facility] Comment on above: Performed By: #### C DP, CP #### [facility] [place] [place] [address] [employer]r Helper: Brandon Lara DO Protein [Mass/Vol] 7.6 g/dL Normal 6.4-8.3 [facility] Comment on above: Performed By: #### C DP, CP #### [facility] [place] [place] [address] Furnace [employer] Helper: Brandon Lara DO Sodium [Moles/Vol] 142 mmol/L Normal 135-144 [facility] Comment on above: Performed By: #### C DP, CP #### [facility] [address] [place] [address] Furnace Repairer Helper: Brandon Lara DO Urea nitrogen [Mass/Vol] 17 mg/dL Normal 6-20 [facility] Comment on above: Performed By: #### C DP, CP #### [facility] [address] [place] [address] Furnace Repairer Helper: Brandon Lara DO Albumin/Globulin [Mass ratio] NOT REPORTED Normal 1.0-2.5 [facility] Comment on above: Performed By: #### C DP, CP #### [facility] [address] [place] [address] Furnace Repairer Helper: Brandon Lara DO BUN/CRE Ratio NOT REPORTED Normal 9-20 [facility] Comment on above: Performed By: #### C JEAN, CP #### [facility] [address] [place] [address] Furnace Repairer Helper: Brandon Lara DO Staging: NOT REPORTED Normal [facility] Comment on above: Performed By: #### C DP, CP #### [facility] [address] [place] [address] [employer]aire[employer] Helper: Brandon Lara DO Vital Signs Date Time Vital Sign Value Performing Clinician Facility 09-01-2023 09:38-0400 Body height 165.1 cm [facility] 09-01-2023 09:38-0400 Body temperature 97.8 [degF] [facility] 09-01-2023 09:38-0400 Body weight 67.9 kg [facility] 09-01-2023 09:38-0400 Diastolic blood pressure 70 mm[Hg] [facility] 09-01-2023 09:38-0400 Heart rate 66 /min [facility] 09-01-2023 09:38-0400 Respiratory rate 18 /min [facility] 09-01-2023 09:38-0400 SaO2% (BldA) [Mass fraction] 100 % [facility] 09-01-2023 09:38-0400 Systolic blood pressure 125 mm[Hg] [facility] 01-15-2022 07:26-0400 Body temperature 97.9 [degF] MD Tom Britton Work Phone: [facility] 01-15-2022 07:26-0400 Diastolic blood pressure 76 mm[Hg] MD Tom Britton Work Phone: [facility] 01-15-2022 07:26-0400 Heart rate 55 /min MD Tom Britton Work Phone: [facility] 01-15-2022 07:26-0400 Respiratory rate 16 /min MD Tom Britton Work Phone: [facility] 01-15-2022 07:26-0400 SaO2% (BldA) [Mass fraction] 100 % MD Tom Britton Work Phone: [facility] 01-15-2022 07:26-0400 Systolic blood pressure 115 mm[Hg] MD Tmo Britton Work Phone: [facility] 01-14-2022 09:00-0400 Body weight 65.9 kg MD Tom Britton Work Phone: [facility] 01-12-2022 13:00-0400 Body height 165.1 cm MD Tom Britton Work Phone: [facility] 04-13-2019 10:59-0500 BP Diastolic 53 mm[Hg] [facility] [place] 04-13-2019 10:59-0500 BP Systolic 89 mm[Hg] [place], [place] 04-13-2019 10:59-0500 Pulse (Heart Rate) 63 /min [place], [place] 04-13-2019 10:59-0500 Respiratory Rate 14 /min [facility] 04-12-2019 07:40-0500 Body Temperature 97.81 [degF] [facility] 04-10-2019 20:04-0500 Pulse Oximetry 99 % [place], [place] 04-10-2019 03:10-0500 BMI (Body Mass Index) 21.95 kg/m2 [facility], [place] 04-10-2019 03:10-0500 Body weight 61.69 kg [place], [place] 04-10-2019 03:10-0500 Height 167.6 cm [place], [place] Encounters Encounter Date Encounter Type Care Provider Facility Start: 10-05-2024 ambulatory Pankaj Farias acility:[facility] Start: 10-01-2024 End: 10-01-2024 Emergency department patient visit NO PCP NO PCP [facility] Start: 10-28-2023 End: 10-28-2023 Emergency department patient visit [facility] Start: 10-28-2023 End: 10-28-2023 Emergency department patient visit [facility] Start: 10-27-2023 End: 2023 Emergency department patient visit PANTERA Escalante DO [facility] Start: 10-15-2023 End: 10-16-2023 Emergency department patient visit LAURA TERRY [facility] Start: 10-15-2023 End: 10-15-2023 Emergency department patient visit [facility] Start: 09-01-2023 End: 09-01-2023 Emergency department patient visit [facility] Work Phone: Start: 01-12-2022 End: 01-15-2022 Evaluation and management of inpatient MD Tom Britton Work Phone: [facility] Start: 02-07-2021 End: 02-07-2021 ambulatory [facility] Facility:[facility] Start: 10-21-2020 End: 10-21-[address] JASON BARRERA Facility:[facility] Start: 10-21-2020 End: 10-21-[address] JASON BARRERA Facility:[facility] Start: 10-08-2020 End: 10-08-[address] VERMA LISTED REQUEST Facility:[facility]1 Start: 09-28-2020 End: 09-28-2020 ambulatory Brandi White DO Facility:[facility] Start: 04-10-2019 End: 04-13-2019 Evaluation and management of inpatient MELANIE TAMEZ [facility] Start: 11-19-2018 End: 11-21-2018 Evaluation and management of inpatient ALEXIS OWENS [facility] Procedures Date Procedure Procedure Detail Performing Clinician Start: 09-01-2023 SARS-CoV-2, Influenz a & RSV (PCR) Start: 09-01-2023 Streptococcus pyogen es antigen assay Start: 01-12-2022 Plain X-ray of left wrist MD Tom Britton Work Phone: Start: 04-13-2019 DISCHARGE PATIENT ZAC OWENS Start: 04-10-2019 DIET GENERAL ALEXIS QUIROGA Start: 04-10-2019 Drug screen class list a ALEXIS QUIROGA Start: 04-10-2019 FULL CODE ALEXIS QUIROGA Start: 04-10-2019 IP CONSULT TO HISTOR Y AND PHYSICAL ALEXIS QUIROGA Start: 04-10-2019 PATIENT MONITORING C LOSE Q 15 MINUTES [facility] Start: 04-10-2019 VITAL SIGNS, PSYCH ABDU ARI [facility] Start: 04-10-2019 PATIENT STATUS (DIRECT) ALEXIS OWENS Start: 11-21-2018 DISCHARGE PATIENT ZAC OWENS Start: 11-20-2018 Blood count complete auto&auto difrntl wbc [facility]LEXIS [facility] Start: 11-20-2018 Comprehensive metabo lic panel ALEXIS QUIROGA Start: 11-19-2018 IP CONSULT TO HISTOR Y AND PHYSICAL ALEXIS QUIROGA Start: 11-19-2018 DIET GENERAL ALEXIS QUIROGA Start: 11-19-2018 FULL CODE ALEXIS OWENS Start: 11-19-2018 SUICIDE PRECAUTIONS [facility] HENRY QUIROGA Start: 11-19-2018 TOBACCO CESSATION EDUCATION [facility]LEXIS [facility] Start: 11-19-2018 VITAL SIGNS ALEXIS QUIROGA Start: 11-19-2018 MISCELLANEOUS NURSIN G CARE ORDER (SPECIFY) ALEXIS QUIROGA Start: 11-19-2018 IP CONSULT TO HISTOR Y AND PHYSICAL ALEXIS [facility] Start: 11-19-2018 PATIENT MONITORING C LOSE Q 15 MINUTES [facility] [facility] Start: 11-19-2018 PATIENT STATUS (DIRECT) ALEXIS QUIROGA Plan of Treatment Date Care Activity Detail Author Start: 01-15-2022 [facility] Work Phone: Start: 01-12-2022 Referral to Head Of Loss Prevention [facility] Work Phone: Start: 01-12-2022 Hospital admission [facility] Work Phone: Start: 01-10-2019 Influenza vaccination Flu vaccine (# 1) [place], [place] Patient Education [facility] Work Phone: Patient referral [facility] Work Phone: Payers Date Payer Category Payer Self-pay [id number] 2022 Medicaid [id number] 2020 Unknown 2019 Medicaid PENDING MEDICAID PENDING MEDICAID xxxxx 2019-Present xxxxx [id number] 2019 Medicaid ACUTE 1994 Unknown [id number] 1994 Unknown [id number] 2.16.840.1.670451.3.579.2.176 1994 Unknown [id number] 2.16.840.1.395995.3.579.2.196 1994 Unknown [id number] 2.16.840.1.366708.3.579.2.593 1994 Unknown [id number] 2.16.840.1.088638.3.579.2.593 1994 Unknown [id number] 2.16.840.1.409565.3.579.2.593 1994 Unknown [id number] 2.16.840.1.867961.3.579.2.593 1994 Unknown [id number] 2.16.840.1.926391.3.579.2.593 1994 Unknown [id number] 2.16.840.1.809157.3.579.2.1286 1994 Unknown [id number] 2.16.840.1.575405.3.579.2.1286 1994 Unknown [id number] 2.16.840.1.135180.3.579.2.1286 1994 Unknown [id number] 2.16.840.1.026955.3.579.2.1286 1994 Unknown [id number] 2.16.840.1.158904.3.579.2.1286 1994 Unknown [id number] 2.16.840.1.532866.3.579.2.1286 1994 Unknown [id number] 2.16.840.1.653605.3.579.2.1286 05-12-1960 Unknown [id number] Medicaid [facility] [id number] Medicaid An[place] Medicaid [id number] Unknown [id number] Social History Date Type Detail Facility Start: 04-10-2019 Tobacco smoking stat us [facility] Current every day smoker [place], [place] History of tobacco use Cigarette Smoker M [place], [place] History of tobacco use Cigar Smoker [place] Start: 04-10-2019 Cigarettes smoked current (pack per day) - Reported [place] Start: 04-10-2019 Alcohol intake Ex-drinker (finding) [place] Start: 11-19-2018 Tobacco Comment pt accepting o f nicotine gum [place], [place] Sex Assigned At Not on file [place] Start: 01-13-2022 End: 09-01-2023 Tobacco smoking status NHIS Smoker (finding) [facility] Start: 1995 Sex Assigned At Male F [facility] Functional Status Date Assessment Result Facility 01-15-2022 Functional status Patient at Baseline [facility] Work Phone: Mental Status Date Assessment Result Facility 01-15-2022 Cognitive function Cognitive Sta tus Patient at Baseline [facility] Work Phone: Progress note 01-14-2022 Note Date & Type Note Facility 01-14-2022 Progress note Note Date/Time January 14, 2022 12:32pm [facility] [address] [place] [address] Psychiatry Progress Note Signed Patient: Akira Palomo MR#: [id number] : 1995 Acct:[id number] Age/Sex: 26 / M Adm Date: 2 Loc: Room: [address] [place] [address] Type : ADM IN Attending Dr: Tom Britton MD Copies to: ~ Date of Service: 01/14/2022 Subjective Subjective Narrative: Mr. Palomo reported that he is doing okay at this. He stated that he was just upset due to his alcohol use and a friend making statements about his parents. He reported that it was a stupid decision of what he did and feels regretful of what happened. He reported that he has a lot of responsibilities and feels likehe just needs to be home because he has to work. He denied any current suicidalor homicidal thoughts. Mental Status Exam: Appearance: grossly normal Mental Status: mental status grossly normal Mood: Improving mood Affect: Improving affect Speech and Movement: speech and movement normal and speech clear Attitude: cooperative Thought Process: normal Thought Content: hallucinations, no homicidality and suicidality Insight: fair Judgment: fair ? Exam Physical Exam Vital Signs: Temp Pulse Resp BP Pulse Ox O2 Del Method 97.7 F 55 L 18 107/72 94 L Room Air 01/14/22 07:30 01/14/22 07:30 01/14/22 07:30 01/14/22 07:30 01/14/22 07:30 01/14/22 08:28 Assessment/Plan Assessment/Plan (1) Major depressive disorder with psychotic features: Code(s): F32.3 - Major depressive disorder, single episode, severe with psychotic features Status: Acute Plan Patient reported that he is doing okay at this time. Denies current suicidal thoughts and feels regretful of what happened Continue Lexapro Continue to monitor mental status Encourage group participation and medication compliance Risk benefits alternatives explained Documented By: Erick Elizondo MD 01/14/22 123 Signed By: <Electronically signed by Erick Elizondo MD> 01/14/22 [facility] Work Phone: History and physical note 01-13-2022 Note Date & Type Note Facility 01-13-2022 History and physical note Note Date/Time January 13, 2022 9:17am [facility] [address] [place] [address] Psychiatry H&P Signed Patient: Akira Palomo MR#: [id number] : 1995 Acct:[id number] Age/Sex: 26 / M Adm Date: 2 Loc: Room: [address] [place] [address] Type: ADM IN Attending Dr: Tom Britton MD Copies to: NON STAFF Pankaj Britton MD~ Date of Service: 01/13/2022 HPI History of Present Illness History of present illness: Mr. Palomo is a 26 year old male with reported history of depression, alcohol use, history of stimulant use disorder presents for inpatient mission after an aborted suicide attempt. Reportedly, he attempted to jump up from a bridge and was pulled for his safety. At the time of the interview, the patient presented as anxious and minimizing what happened. He states that he was under the influence when he attempted to jump from a bridge and was feeling depressed after hearing some comments from a friend. He states I heard things about my past that made me feel upset..I do not know how these people knew all these things from my past when they shouldn't. He did not elaborate on his past but noted that an ex GF knew many things about him and told a lot of people this sensitive info. He does show somemanipulative behaviors and seems fixated about leaving the hospital. He said he will lose his job if is not discharged tomorrow. When I mentioned that he wouldn't have a job if he was successful in his suicide attempt, he states it is not my fault that I tried to kill my self but it is their fault because they mentioned things about my past. He reports previous suicide attempts and psychiatric hospitalization at [place]. He reports a history of self-medicating with meth but denied current use. He said he is intoxicated before he attempted to jump from the bridge. Hehad tried several medications before for depression but did not like them. 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 Xray of wrist shows No acute bony injury or significant degenerative change. Mental Status: mental status grossly normal Mood: depressed mood Affect: constricted affect Speech and Movement: speech and movement normal and speech clear Attitude: cooperative Thought Process: normal Thought Content: Denied hallucinations, no homicidality and positive suicidality Insight: limited Judgment: limited Review of Systems Constitutional: Pt reports ongoing body pain after he attempted to jump from a bridge Neuro: Denies dizziness/lightheadedness. HEENT: Denies vision/hearing changes. Pulmonary: Denies SOB, dyspnea, cough, wheezing. Cardiac: Denies chest pain/pressure. Denies edema, palpitations. GI: Denies abdominal pain, heartburn, N/V. Denies constipation and diarrhea : Denies dysuria, hematuria, polyuria. Physical exam General: not in any acute distress Skin: intact HEENT: head atraumatic, face symmetrical. Pulm: Breathing normally without excessive effort Cardio: Regular rate and rhythm Abdomen: Normal inspection Musculoskeletal: Moves all extremities, normal strength all extremities. Neuro: Pt alert, oriented x3. Gait normal. CNII: Visual pro intact CNIII,IV,: EOM intact, no nystagmus. CNV: Sensation intact to light touch. CNVII: Raises eyebrows, smile/frown, puff out cheeks symmetrically. CNVIII: Hearing intact bilaterally. CNIX,X: Voice normal, soft palate elevation normal, symmetrical. CNXI: Shoulder shrug strong, equal bilaterally. CNXII: Tongue protrusion midline ? PMFSH Vaccinated for COVID-19?: Yes Medical History (Updated 01/13/22 @ 09:24 by Tom Britton MD) Anxiety Bipolar 1 disorder Depression Insomnia Schizophrenia Surgical History H/O removal of cyst History of orthopedic surgery LEFT ARM Social History Smoking Status: Current every day smoker Tobacco Type: e-cigarettes Substance Use Type: None Substance Abuse Comment: OCCASIONAL Social History Comments: bunch of people live there Meds Medications and Allergies Allergies No Known Allergies Allergy (Verified 12/26/18 01:05) Home Medications No known home meds 01/12/22 [History Confirmed 01/12/22] Exam Physical Exam Vital Signs: Temp Pulse Resp BP Pulse Ox O2 Del Method 97.3 F L 53 L 16 101/58 L 99 Room Air 01/13/22 07:30 01/13/22 07:30 01/13/22 07:30 01/13/22 07:30 01/13/22 07:30 01/13/22 08:50 Assessment/Plan (1) Major depressive disorder with psychotic features: Code(s): F32.3 - Major depressive disorder, single episode, severe with psychotic features Status: Acute Plan Admit to for management of depression and to ensure safety of self due to SI. Start Lexapro 5 mg p.o. every afternoon. Patient reports history of paranoid thoughts and auditory donations. It is not clear if they are in the context of psychiatric illness or substance use as he reports previous meth use. Monitor suicidal behaviors for safety of self (15-minute face check). Recommend attending groups and psychoeducation for building coping skills. Risks, benefits and indications of medications were discussed with the patient. The patient verbalized understanding. No abnormal movements noted on exam. AIMS is Zero. Documented By: Pankaj Britton MD 2 0917 Signed By: <Electronically signed by Pankaj Britton MD> 01/13/22 09 [facility] Work Phone: Discharge summary note 09-28-2020 Note Date & Type Note Facility 09-28-2020 Note Admission Informatio n Patient: Akira Palomo Jr : 1995 Date of Admission: 09/28/2020 10:08:56 Date of Discharge: 09/28/2020 PCP: Lakisha Solitario MD Consult: Judith Licona MD Follow Up with Provider: With: Address: When: Lakisha Solitario MD [address] [place] [address] [phone] Within 1 week Comments: Call for followup appointment. Hospital follow up. Diagnoses: 1. SVT (supraventricular tachycardia) 2. Elevated troponin 3. Methamphetamine use 4. Tobacco use 5. MRSA nasal colonization Brief Hospital Course Summary: The patient is a pleasant 24 yo male patient admitted from [facility] with reported SVT. He had the first episode during the day on 09/27/2020 was given adenosine with improvement and discharged home. His symptoms returned overnight and he was readmitted to the ED in [place] but then spontaneously converted. He was then transferred to [facility] for further evaluation. Echocardiogram ordered and consult to cardiology. Echo showed EF of 60 to 65%. Evaluated by cardiology who recommended the patient discontinue smoking as well as discontinue methamphetamine use. Cardiology explained vagal maneuvers to the patient. Cleared for discharge by cardiology with outpatient primary care follow-up. Patient was discharged home in stable condition on 09/28/2020. Patient requesting STD testing which was ordered by previous provider. Results are pending. Discussed case with initial provider who will follow up on results. Discharge Time Spent with Patient: Approximately 15 minutes was spent in the documentation, chart review, coordination of care, and discharge planning of this patient. Medications These Medications Were Removed and Should No Longer Be Taken potassium chloride (Potassium Chloride (Gaz-Alay-Rmd M20) 20 mEq oral tablet, extended release) 1 Tabs Oral (given by mouth) 2 times a day for 5 Days. Stop Taking Reason: Physician Request Patient Discharge Condition stable Discharge Disposition home Objective Vitals & Measurements T: 36.8 ?C (Oral) HR: 93 (Monitored) RR: 13 BP: 97/63 SpO2: 98% HT: 165 cm WT: 74.3 kg BMI: 27.29 Additional Vitals No qualifying data available. Lab Results Labs (Last four charted values) WBC 6.9 (SEPTEMBER 28) Hgb 15.4 (SEPTEMBER 28) Hct 43.7 (SEPTEMBER 28) Plt 264 (SEPTEMBER 28) Na 139 (SEPTEMBER 28) K 3.8 (SEPTEMBER 28) CO2 24 (SEPTEMBER 28) Cl 103 (SEPTEMBER 28) Cr 0.68 (SEPTEMBER 28) BUN 25 (SEPTEMBER 28) Mg H 2.5 (SEPTEMBER 28) Phos 3.6 (SEPTEMBER 28) PT 11.0 (SEPTEMBER 28) INR 1.0 (SEPTEMBER 28) PTT 23.4 (SEPTEMBER 28) Microbiology - Current Encounter No qualifying data available. Diagnostic Results Diagnostic Radiology No qualifying data available. Computed Tomography No qualifying data available. Ultrasound No qualifying data available. Magnetic Resonance Imaging No qualifying data available. Nuclear Medicine No qualifying data available. Procedure/Surgical History abscess removal (2015) Electronically signed by Brandi White DO 09/28/20 17:53 EDT [facility] Clinical Note 09-28-2020 Note Date & Type Note Facility 09-28-2020 Note Chief Complaint palpitations Reason for Consultation SVT History of Present Illness 24 yo M with no past cardiac history. He was just released from [facility]way a few days ago after serving 9 months for narcotics. He has been in half-way previously for narcotics as well. He smokes but doesn't drink a lot of alcohol. He reports use of methamphetamine 2 days ago (though apparently he told a nurse in [place] that he used it this morning). Yesterday he presented to the [place] ED with chest pain, dyspnea, diaphoresis and palpitations. His HR was 201 in SVT and it terminated with adenosine. His K was 3.3 so he was given KCl. He went home at it happened again. He drank a lot of water but his tachycardia continued so he presented again to the ED and it terminated when an IV was started. His troponin was 0.39 at [place] and is 0.21 and 0.16 here. His ECG has no ischemic changes during SVT or upon conversion. He has never had an arrhythmia before. His tox screen is predictably positive for amphetamines. He has a COVID vaccine 2 weeks ago. Currently his only c/o is a sore mouth and his exam reveals diffuse mucosal ulcerations. He is requesting an STD evaluation as well. His echo is unremarkable. He has no arrhythmias while incarcerated. Review of Systems The remainder of the systems were reviewed and are negative except as reported above Physical Exam Vitals & Measurements T: 36.8 ?C (Oral) HR: 73 (Monitored) RR: 19 BP: 97/63 SpO2: 99% HT: 165 cm WT: 74.3 kg BMI: 27.29 General appearance: NAD, conversant Eyes: anicteric sclerae, moist conjunctiva, no lid-lag, no xanthelasmas HENT: Atraumatic, oropharynx clear with moist mucous membranes with diffuse mucosal ulcerations, otherwise normal hard and soft palate Neck: Trachea midline, supple, no thyromegaly or lymphadenopathy, no masses, no JVD Lungs: CTA, with normal respiratory effort CV: RRR, no murmurs, no rubs, no gallops, normal S1, S2, no palpably enlarged aorta, no abdominal or carotid bruits, 2+ bilateral radial, femoral, DP and PT pulses Abdomen: Soft, non-tender, no masses or hepatosplenomegaly Extremities: No peripheral edema, no extremity lymphadenopathy, no clubbing or cyanosis, extensive tattoos Skin: Normal temperature, no rash, lesions, ulcers or subcutaneous nodules, no venous stasis dermatitis Psych: Appropriate affect, alert and oriented to person, place and time Additional Vitals No qualifying data available. Assessment/Plan 1. SVT (supraventricular tachycardia) 2. Elevated troponin 3. Methamphetamine use 4. Tobacco use 5. MRSA nasal colonization His SVT, with resulting sxs and troponin elevation, was precipitated by methamphetamine use. The treatment is to stop using methamphetamine and stop smoking. I explained vagal maneuvers. He can f/u with his PCP. Ok with me to D/C home. Problem List/Past Medical History Ongoing Anxiety Depression Hepatitis C Schizoaffective schizophrenia Tobacco use Visual impairment Historical Abscess of arm, left Procedure/Surgical History abscess removal (2015) Medications Inpatient acetaminophen, 1000 mg, Oral, q6hr, PRN acetaminophen, 1000 mg, Oral, q6hr, PRN Bactroban 2% nasal ointment, 1 jean-paul, Nasal, BID enoxaparin, 40 mg= 0.4 mL, Subcutaneous, Daily Normal Saline Flush 0.9% injectable solution, 10 mL, IV Push, As Indicated, PRN Normal Saline Flush 0.9% injectable solution, 10 mL, IV Push, BID ondansetron, 4 mg= 2 mL, IV Push, q4hr, PRN Home Potassium Chloride (Vno-Uwzt-Hyy M20) 20 mEq oral tablet, extended release, 20 mEq= 1 tabs, Oral, BID Allergies No Known Medication Allergies Social History Alcohol Never Substance Abuse Current, Methamphetamines, 1-2 times per week Tobacco 10 or more cigarettes (1/2 pack or more)/day in last 30 days Use:. Cigarettes, 1 per day. Packs, 11 year(s). Family History Diabetes mellitus: Mother. Hypertension: Mother. Lab Results Test Name Test Result Date/Time Potassium Lvl 3.8 mmol/L 09/28/2020 11:05 EDT Creatinine Lvl 0.68 mg/dL 09/28/2020 11:05 EDT 12 Hour CPK 595 ng/mL (High) 09/28/2020 16:03 EDT 12 Hour Troponin 0.16 ng/mL (Critical) 09/28/2020 16:03 EDT Microbiology - Current Encounter No qualifying data available. Electronically signed by Judith Licona MD 09/28/20 17:20 EDT [facility] History and physical note 09-28-2020 Note Date & Type Note Facility 09-28-2020 Note Chief Complaint Pains around my heart shortness of breath and lightheadedness History of Present Illness This is a pleasant 24-year-old male patient who presented initially to [facility] starting yesterday with sharp pain around his heart lightheadedness dizziness and shortness of breath. He was found to be in SVT given a dose of adenosine and converted. He was discharged home but then came back in last night with the same complaints of a sharp pain around his heart lightheadedness shortness of breath and dizziness. Well the nurse was placing an IV he spontaneously converted. He was then referred to our hospital for further work-up. At the [facility] he did test positive for methamphetamine which she does admit to use within the last 3 days. He denies any cocaine heroin use or marijuana use. He does state he was locked up for approximately 9 months and during that time he was clean when he was released he did relapse. He is 1/2 pack/day smoker denies any alcohol use. His other medical history includes anxiety and depression, schizoaffective disorder, hepatitis C. He used to be on risperidone for his schizoaffective disorder however he stopped using this while incarcerated due to making him feel off. Review of Systems Constitutional: No fevers, chills, sweats Respiratory: reported shortness of breath, no cough Cardiovascular: reported Chest pain and dizzinesss, no palpitations, syncope, no calf tenderness, reported tingling in the left hand during episode Gastrointestinal: No nausea, vomiting, diarrhea Genitourinary: No hematuria skin: denies chronic bruising, rash psychiatry: denies any depression or mood instability or suicidal ideation neuro: denies any focal deficits no paraesthesias HENT: denies URI symptoms EYES: No visual disturbances Allergies: no seasonal allergy complaints Objective Vitals & Measurements T: 36.8 ?C (Oral) HT: 165 cm WT: 74.3 kg BMI: 27.29 Lungs: Clear to auscultation, non-labored respiration on room air Heart: Normal rate, regular rhythm, no murmur, gallop or edema. Abdomen: Soft, non-tender, non-distended, normal bowel sounds, no palpable masses. Mental Status: Alert and oriented x3. no focal deficits Skin: pink warm dry and intact Peripheral: 2+ dorsalis pedal pulses and 2+ radial pulses Musculoskeletal: moves all four extremities, no joint erythema or tenderness Constitutional: well appearing, nontoxic HENT: moist mucous membranes psychiatry: cooperative calm and appropriate Additional Vitals No qualifying data available. Assessment/Plan Brief Hospital Course Summary: This is a pleasant 24 yo male patient admitted from [facility] with reported SVT. He had the first episode during the day on 09/27/2020 was given adenosine with improvement and discharged home. His symptoms returned overnight and he was readmitted to the ED in [place] but then spontaneously converted. He was then transferred to [facility] for further evaluation. Echocardiogram ordered and consult to cardiology Assessment: SVT Elevated troponin Methamphetamine use Tobacco use Plan: Admit to telemetry monitoring, echocardiogram, cycle troponin level, elevation likely secondary to tachycardia, consult cardiology Check drug screen consult psychology professor Hold off on nicotine replacement until cardiology evaluates as nicotine could precipitate tachycardia Medical necessity for ongoing hospitalization: SVT Complication risk: Worsening cardiac arrhythmias Disposition Discharge Barriers: Work-up in progress Code Status: Full code Health Care Power of Furnace Builder or next of kin: Judie Osorio Family Updated: By patient Activity at baseline: Independent Anticipated Discharge Location: Home Anticipated Discharge Date: likely the next 1-2 days Problem List/Past Medical History Ongoing Anxiety Depression Hepatitis C Schizoaffective schizophrenia Visual impairment Historical Abscess of arm, left Procedure/Surgical History abscess removal (2016) Medications Inpatient acetaminophen, 1000 mg, Oral, q6hr, PRN acetaminophen, 1000 mg, Oral, q6hr, PRN enoxaparin, 40 mg= 0.4 mL, Subcutaneous, Daily Normal Saline Flush 0.9% injectable solution, 10 mL, IV Push, As Indicated, PRN Normal Saline Flush 0.9% injectable solution, 10 mL, IV Push, BID ondansetron, 4 mg= 2 mL, IV Push, q4hr, PRN Home Potassium Chloride (Rhl-Ucpk-Yoo M20) 20 mEq oral tablet, extended release, 20 mEq= 1 tabs, Oral, BID Allergies No Known Medication Allergies Social History Alcohol Never Substance Abuse Current, Methamphetamines, 1-2 times per week Tobacco 10 or more cigarettes (1/2 pack or more)/day in last 30 days Use:. Cigarettes, 1 per day. Packs, 11 year(s). Family History Diabetes mellitus: Mother. Hypertension: Mother. Lab Results No qualifying data available Lab results [facility] 09/28/2020: Troponin 0 0.39 D-dimer negative Sodium 134 Potass (more content not included)... [facility] Discharge summary Note Date & Type Note Facility Discharge summary Note Date/Time January 15, 2022 11:40am [facility] [address] [place] [id number] Discharge Summary Signed Patient: Akira Palomo MR#: [id number] : 1995 Acct:[id number] Age/Sex: 26 / M Adm Date: 2 Loc: Room: [address] [place] [address]: Tom Britton MD Copies to: NON STAFF MD Erick Cuadra MD~ Providers Date of Discharge: 01/15/22 Discharging Provider: Erick Elizondo Primary Care Provider: NON STAFF Consults: 01/12/22 13:53 Consult to Case Management Routine Discharge Diagnosis (1) Major depressive disorder with psychotic features: Final Diagnosis Final Discharge Diagnosis: Major depressive disorder with psychotic features Summary Hospital Course Hospital course: According to admission note: Mr. Palomo is a 26 year old male with reported history of depression, alcohol use, history of stimulant use disorder presents for inpatient mission after an aborted suicide attempt.? Reportedly, he attempted to jump up from a bridge and was pulled for his safety. At the time of the interview, the patient presented as anxious and minimizing what happened.? He states that he was under the influence when he attempted to jump from a bridge and was feeling depressed after hearing some comments from a friend. He states I heard things about my past that made me feel upset..I do not know how these people? knew all these things from my past when they shouldn't. He did not elaborate on his past but noted that an ex GF knew many things about him and told a lot of people this sensitive info. He does show somemanipulative behaviors and seems fixated about leaving the hospital. He said he will lose his job if is not discharged tomorrow. When I mentioned that he wouldn't have a job if he was successful in his suicide attempt,? he states it is not my fault that I tried to kill my self but it is their fault because they mentioned things about my past. He reports previous suicide attempts and psychiatric hospitalization at [facility].? He reports a history of self-medicating with meth but denied current use.? He said he is intoxicated before he attempted to jump from the bridge.? Hehad tried several medications before for depression but did not like them.? 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 Xray of wrist shows? No acute bony injury or significant degenerative change. Patient was treated with Lexapro during his hospitalization. He tolerated the medication without any problems and did not report any side effects. He had gradual improvements of his symptoms of depression. He did not report any suicidality during his hospital course. As symptoms improved he was moved to the front unit due to the fact that he was doing well. He did not exhibit any behavior concerning for suicidality. Did not appear manic or psychotic during his hospitalization. He attended some groups and socialized with peers appropriately. On the day of discharge he reported he is feeling better. He denied any depression or suicidality. He was comfortable with discharge home and stated that he will follow-up with outpatient services. He was future oriented and looking forward to returning back to work. Condition Condition at Discharge: Stable Status at Discharge Cognitive/behavioral status at discharge: Mental Status Exam: Appearance: grossly normal Mental Status: mental status grossly normal Mood: Euthymic mood Affect: Normal affect Speech and Movement: speech and movement normal and speech clear Attitude: cooperative Thought Process: normal Thought Content: Denied hallucinations, no homicidality and no suicidality Insight: Good Judgment: Good Functional status at discharge: independent ambulation Overall status at discharge: patient is back to baseline Time Spent with Patient Time spent providing/coordinating discharge services (# min): 30 Exam Physical Exam Vital Signs: Temp Pulse Resp BP Pulse Ox O2 Del Method 97.9 F 55 L 16 115/76 100 Room Air 01/15/22 07:26 01/15/22 07:26 01/15/22 07:26 01/15/22 07:26 01/15/22 07:26 01/15/22 07:26 Discharge Plan Discharge Plan Patient Disposition: Home Activity: No Activity Restriction Diet: Regular Stand Alone Forms: Work/School Release Form Prescriptions: New trazodone 50 mg Tablet 50 mg PO QHS PRN (Reason: Insomnia) Qty: 30 0RF nicotine (polacrilex) 2 mg Gum 2 mg buccal Q2H PRN (Reason: Nicotine Cravings) Qty: 60 0RF escitalopram oxalate 5 mg Tablet 5 mg PO QPM 30 Days Qty: 30 0RF Follow Up: [facility] [Outside] [facility] [Outside] ( 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 (insert date/time here) Intake: (Insert date/time here) Please bring a copy of your photo ID, insurance card, and proof of household income.? Psychiatry: (Insert date/time here) Group: (Insert date/time here ) ) Documented By: Erick Elizondo MD 01/15/22 1138 Signed By: <Electronically signed by Erick Elizondo MD> 01/15/22 1141 [facility] Work Phone: Evaluation note Note Date & Type Note Facility Evaluation note Diagnosis Onset Date Major depressive disorder wi th psychotic features acute [facility] Work Phone: Evaluation note Note Date & Type Note Facility Evaluation note No assessment information availa ble [facility] Work Phone: Hospital Discharge instructions Note Date & Type Note Facility Hospital Discharge instructions Additional Instructions Regular diet No activity restrictions [facility] Work Phone: Family History No Family History Records Found Medical History Relation Name Comments Diabetes Mother Hypertension Mother Relation Name Status Comments Mother Advance Directives No Advanced Directives Records FoundDocuments on File Type Date Recorded 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 Advance Directives and Living Will Power of Furnace Builder Latest Code Status on File Code Status Date Activated Date Inactivated Comments Full Code 04/10/2019 3:04 AM Full Code 11/19/2018 3:51 PM 11/21/2018 5:31 PM Full Code 11/19/2018 2:33 AM 11/19/2018 3:51 PM Advance Directive Response Recorded Date/ Time Advance Directives No December 26, 2018 1:21am Summary Purpose Chief Complaint and Reason for Visit Chief Complaint Schizo Affective Dis order Bipolar Type Reason for Visit Major depressive dis order with psychotic features Chief Complaint body aches, sob Additional Source Comments (unrecognized sect ion and content) No Status Records FoundNo Status Records FoundNo Status Records FoundNo Status Records FoundNo Status Records Found INFORMATION SOURCE (unrecogn ized section and content) DATE CREATED AUTHOR 04/15/2019 [facility] DATE CREATED AUTHOR AUTHOR'S ORGANIZ ATION 10/05/2020 [facility] DATE CREATED AUTHOR AUTHOR'S ORGANIZ ATION 02/09/[address] [facility] DATE CREATED AUTHOR AUTHOR'S ORGANIZ ATION 10/07/2024 [facility] DATE CREATED AUTHOR AUTHOR'S ORGANIZ ATION 10/08/2024 [facility] Care Teams (unrecognized sec tion and content) Team Status: Inactive Member Role Status Dates Tom Britton MD Admit Provider, Attending Alen hernandez Active NON STAFF Primary Care Provider Active Team Status: Active Member Role Status Dates NON STAFF Primary Care Provider Active Team Status: Inactive Member Role Status Dates NON STAFF Primary Care Provider Active Start: September 01, 2023 End: September 01, 2023 Damian Gordon APRN Emergency Provider Active Start: September 01, 2023 End: September 01, 2023 Goals (unrecognized section and content) Goals may be documented in a n alternate sectionGoals may be documented in an alternate section FOR RECORDS PERTAINING TO PATIENTS WHO ARE OR HAVE BEEN ENROLLED IN A CHEMICAL DEPENDENCY/SUBSTANCEABUSE PROGRAM, SOME INFORMATION MAY BE OMITTED. This clinical summary was aggregated from multiple sources. Caution should be exercised in using it in the provision of clinical care. This summary normalizes information from multiple sources, and as a consequence, information in this document may materially change the coding, format and clinical context of patient data. In addition, data may be omitted in some cases. CLINICAL DECISIONS SHOULD BE BASED ON THE PRIMARY CLINICAL RECORDS. [facility] [employer] provides no warranty or guarantee of the accuracy or completeness of information in this document.
--- NOTE | 2024-10-22 07:19 | XR_ITS ---
The [address] [address] Patient Name: KEELY ELLIS MRN: [id number] date: 1995 Sex: M Assigned Patient Location: ER Current Patient Location: ER Accession/Order Number: [id number] Exam Date: 10/22/2024 07:39 Report Date: 10/22/2024 07:43 At the request of: MARCI PARRA MD Procedure: XR foot LT min 3V CLINICAL DATA: Patient rolled left foot/ankle and has lateral pain. LEFT ANKLE - 3 views COMPARISON: None AP, lateral and oblique views were obtained. There is no evidence of fracture or dislocation. The talar dome is intact. There are no significant soft tissue abnormalities. XR/XR ankle LT min 3V IMPRESSION: NO ACUTE BONY INJURY. LEFT FOOT - 3 views COMPARISON: None AP, lateral and oblique views were obtained. There is no evidence of fracture or dislocation. There are no significant soft tissue abnormalities. IMPRESSION: NO ACUTE BONY INJURY. Impression dictated by: Leni Sandhu M.D. 10/22/2024 7:43 AM Dictation Location: [place] [address] Electronically authenticated by: [id number] Y Date: 10/22/2024 07:43
--- NOTE | 2024-10-22 07:19 | XR_ITS ---
The [address] [address] Patient Name: KEELY ELLIS MRN: [id number] date: 1995 Sex: M Assigned Patient Location: ER Current Patient Location: ER Accession/Order Number: [id number] Exam Date: 10/22/2024 07:39 Report Date: 10/22/2024 07:43 At the request of: MARCI PARRA MD Procedure: XR foot LT min 3V CLINICAL DATA: Patient rolled left foot/ankle and has lateral pain. LEFT ANKLE - 3 views COMPARISON: None AP, lateral and oblique views were obtained. There is no evidence of fracture or dislocation. The talar dome is intact. There are no significant soft tissue abnormalities. XR/XR foot LT min 3V IMPRESSION: NO ACUTE BONY INJURY. LEFT FOOT - 3 views COMPARISON: None AP, lateral and oblique views were obtained. There is no evidence of fracture or dislocation. There are no significant soft tissue abnormalities. IMPRESSION: NO ACUTE BONY INJURY. Impression dictated by: Leni Sandhu M.D. 10/22/2024 7:43 AM Dictation Location: [place] [address] Electronically authenticated by: [id number] Y Date: 10/22/2024 07:43
[2024-10-22] MEDS: IBUPROFEN 600 MG TABLET PO (07:59)
[2024-10-22 08:09] VITALS: BP 112/76; PULSE 70; O2SAT 99
--- NOTE | 2024-10-22 08:37 | ED.LOWEXI1 ---
HPI HPI - Extremity Injury (Lower) General Chief Complaint: Extremity Injury, Lower Stated Complaint: LOWER EXTREMITY PAIN, LEFT Time Seen by Provider: 10/22/24 07:18 Source: patient Mode of arrival: walk-in Limitations: no limitations History of Present Illness HPI Narrative: The patient is a 28-year-old male is coming to us from a custodial house after he was doing some exercises yesterday, the patient fell off almost 2 feet of the floor with his left ankle twisted under him when he was doing some follow-up The patient has not been able to put weight on his left ankle he denies any other injuries There was no head injury no loss of consciousness and the patient has not been able to put weight on his left ankle since yesterday Related Data Home Medications ?Medication ?Instructions ?Recorded ?Confirmed ibuprofen 600 mg tablet 600 mg PO Q8H PRN pain 10/28/23 10/28/23 lorazepam 1 mg tablet 1 mg PO Q8H PRN anxiety 10/28/23 10/28/23 Allergies Allergy/AdvReac Type Severity Reaction Status Date / Time No Known Drug Allergies Allergy Verified 10/22/24 07:10 Opioid HPI Opioid Management Most Recent Pain and Opioid Data: Last Pain Scale 8 Today, 07:59 Last MAR Pain Assessment Today, 07:59 Review of Systems ROS Status of ROS 10 or more systems reviewed and unremarkable except as noted in history and below PFSH PFSH Social History Smoking status: Current every day smoker Little interest or pleasure in doing things: not at all Feeling down, depressed, or hopeless: not at all Exam Narrative Exam Narrative: Nurses notes and vital signs reviewed and patient is not hypoxic. General: Well-appearing and in no apparent distress. Left leg examination; the patient have a mild edema to the lateral malleolus with mild tenderness to palpation mostly at the lateral malleolus more than the medial malleolus and the left ankle no vascular injury detected The patient had no ecchymosis and that tenderness is at the ankle mostly there is no tenderness on palpation of the upper leg and the patient have full range of movement preserved Constitutional Vital Signs, click to edit/add: Last Vital Signs Temp 97.5 F L 10/22/24 07:05 Pulse 70 10/22/24 08:09 Resp 18 10/22/24 08:09 BP 112/76 10/22/24 08:09 Pulse Ox 99 10/22/24 08:09 O2 Del Method Room Air 10/22/24 08:09 Course Vital Signs Vital signs: Vital Signs Temperature 97.5 F L 10/22/24 07:05 Pulse Rate 72 10/22/24 07:05 Respiratory Rate 16 10/22/24 07:05 Blood Pressure 115/84 10/22/24 07:05 Pulse Oximetry 99 10/22/24 07:05 Oxygen Delivery Method Room Air 10/22/24 07:05 Temperature 97.5 F L 10/22/24 07:05 Pulse Rate 70 10/22/24 08:09 Respiratory Rate 18 10/22/24 08:09 Blood Pressure 112/76 10/22/24 08:09 Pulse Oximetry 99 10/22/24 08:09 Oxygen Delivery Method Room Air 10/22/24 08:09 MDM - Extremity Injury (Lower) MDM Narrative Medical decision making narrative: X-ray of the patient ankle and foot showed no acute pathology The patient was placed on crutches as well as Donal wrap referred to podiatry as outpatient Patient was given a note to avoid the upper bunk at the custodial house The patient is to follow up with primary care physician in next 2-3 days or to return to the emergency department should any of the signs or symptoms worsen or new symptoms develop. The patient agrees with the following Diagnosis and Treatment plan and the patient will be discharged home. Discharge Plan Discharge Chief Complaint: Extremity Injury, Lower Clinical Impression: Ankle sprain Patient Disposition: Home, Self-Care Time of Disposition Decision: 07:55 Condition: Good Mode of Transportation: Private Vehicle Prescriptions / Home Meds: No Action ibuprofen 600 mg tablet 600 mg PO Q8H PRN (Reason: pain) lorazepam 1 mg tablet 1 mg PO Q8H PRN (Reason: anxiety) Print Language: Lithuanian Instructions: Ankle Sprain (DC), Crutch Instructions (ED) Referrals: Physician,Non-Staff, MD [Primary Care Provider] - 1 week Beto Kelley DPM [Physician, Podiatry] - 1 week Discharge Date/Time: 10/22/24 08:09
== END 2024-10-22 08:09 | disposition home or self-care (01) ==
PROVIDERS: Emergency Provider Emergency Medicine
DX: S93.402A Sprain of unspecified ligament of left ankle, initial encounter (principal); X50.1XXA Overexertion from prolonged static or awkward postures, initial encounter; Y93.B9 Activity, other involving muscle strengthening exercises; M25.572 Pain in left ankle and joints of left foot
CPT/HCPCS: 73610; 73630; 99284

== ENCOUNTER 2025-01-17 11:12 | Emergency (ER) | payer MEDICAID, SELFPAY ==
--- OUTSIDE RECORDS SUMMARY | 2025-01-17 11:32 | XMS_ITS | CCD ---
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 Name Role Phone Unavailable Primary Care Provider UnavailALEXIS Johsnon Admitting Unavailable ALEXIS OWENS Attending Unavailable INDURTI, MELANIE V Admitting Unavailable INDURTI MELANIE V Attending Unavailable Brandi White DO A Attending Unavailable Brandi White DO Admitting Unavailable [facility] Primary Care Unavailable MD JUDITH LICONA Consulting Unavailable JAMES, LAKISHA GAMBOA Consulting Unavailable REQUEST, DR BAYRON LISTED Primary Care Unavaila ilsa CUELLO, DR GARCÍA Attending Unavailable CUATE, DR GARCÍA Consulting Unavailable CUATE, DR GARCÍA Admitting Unavailable REQUEST, DR VERMA LISTED Primary Care Unavaila ilsa CUELLO, DR GARCÍA Attending Unavailable CUATE, DR GARCÍA Consulting Unavailable CUATE, DR GARCÍA Admitting Unavailable [facility] Primary Care Unavailable GUSTAVO, DR BERNA Rogers Attending Unavailable GUSTAVO, DR BERNA Rogers Admitting Unavailable PAY, DR GOMEZ Admitting Unavailable [facility] Primary Care Unavailable PAY, DR GOMEZ Attending Unavailable PAY, DR GOMEZ Admitting Unavailable [facility] Primary Care Unavailable PAY, DR GOMEZ Attending Unavailable PAY, DR GOMEZ Consulting Unavailable MD Tom Britton Admit Provider MD Tom Britton Attending Provider NON STAFF Primary Care Provider Unavailkathy e NON STAFF Primary Care Provider UnavailKATHRYN Garza Emergency Provider [phone] NO PCP, NO PCP Primary Care Unavailable LONNIE ALLEN Attending Unavailable PANTERA FLORES Attending Unavailable PANTERA FLORES QKait Referring Unavailable SERVICES, [facility], [facility] Primary Care Unava ilable SERVICES, [facility] Care Unava ilable SERVICES, [facility], [facility] Primary Care Unava ilable NOBLE ALLEN Attending Unavailable SERVICES, [facility], [facility] Primary Care Unava ilable DOPANTERA QKait Attending Unavailable LAURA TERRY Attending Unavailable LAURA TERRY Referring Unavailable SERVICES, [facility] Unava ilable SERVICES, [facility], [facility] Primary Care Unava ilable DOPANTERA QKait Attending Unavailable Pankaj Britton Attending Unavailab le Pankaj Britton Admitting Unavailab le NON STAFF Primary Care Unavailable Allergies Allergy Classification Reported Allergen(s) Allergy Type Date of Onset Reaction(s) Facility Unclassified (1 source) No Known Medication Allergies; Translations: [No Known Medication Allergies] Propensity to adverse reactions to drug (disorder) [facility] Repository Medications Current Medications Medication Drug Class(es) [...] 10-24-2020 Episodic Other aftercare (1 source) 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; 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] Onset: 10-11-2020 Episodic Other [...] Wright MD on 10/01/2024 7:35 AM Normal [facility] CBC AND AUTO DIFFon 10-28-19 24 ABSOLUTE BASOPHIL 0.1 X10E9/L Normal 0.0-0.2 [facility] Comment on above: Performed By: #### C ANALY, 75442-0, CBCA, 98780-8 #### [facility] ([id number]) [address] [place] [address] 34050 ABSOLUTE NEUTROPHIL 4.1 X10E9/L Normal 1.5-6.6 [facility] Comment on above: Performed By: #### C ANALY, 37558-9, CBCA, 62069-6 #### [facility] ([id number]) [address] [place] [address] 75043 Basophils/100 WBC (Bld) 1.1 % Normal [facility] Comment on above: Performed By: #### C ANALY, 61186-5, CBCA, 11671-6 #### [facility] ([id number]) [address] [place] [address] 81822 Eosinophils (Bld) [#/Vol] 0.1 10*3/uL Normal 0.0-0.4 [facility] Comment on above: Performed By: #### C ANALY, 16553-5, CBCA, 00131-7 #### [facility] ([id number]) [address] [place] [address] 94422 Eosinophils/100 WBC (Bld) 0.9 % Normal [facility] Comment on above: Performed By: #### C ANALY, 94853-8, CBCA, 04407-8 #### [facility] ([id number]) [address] [place] [address] 82022 Erythrocyte distribution width (RBC) [Ratio] 13.4 % Normal 11.5-15.0 [facility] Comment on above: Performed By: #### Deangelo BECKFORD, 35608-3, CBCA, 38404-1 #### [facility] ([id number]) [address] [place] [address] 49245 Hematocrit (Bld) [Volume fraction] 44.9 % Normal 39-49 [facility] Comment on above: Performed By: #### Deangelo BECKFORD, 62930-2, CBCA, 85135-0 #### [facility] ([id number]) [address] [place] [address] 40201 Hemoglobin (Bld) [Mass/Vol] 15.8 g/dL Normal 13.0-17.0 [facility] Comment on above: Performed By: #### Deangelo BECKFORD, 13015-8, CBCA, 76561-5 #### [facility] ([id number]) [address] [place] [address] 66123 Lymphocytes (Bld) [#/Vol] 2.4 10*3/uL Normal 1.0-3.5 [facility] Comment on above: Performed By: #### Deangelo BECKFORD, 23442-1, CBCA, 72978-4 #### [facility] ([id number]) [address] [place] [address] 93338 Lymphocytes/100 WBC (Bld) 30.8 % Normal [facility] Comment on above: Performed By: #### C ANALY, 85796-4, CBCA, 03085-2 #### [facility] ([id number]) [address] [place] [address] 57121 MCH (RBC) [Entitic mass] 29.9 pg Normal 27-34 [facility] Comment on above: Performed By: #### Deangelo BECKFORD, 23068-6, CBCA, 56967-3 #### [facility] ([id number]) [address] [place] [address] 79473 MCHC (RBC) [Mass/Vol] 35.3 g/dL Normal 32-36 [facility] Comment on above: Performed By: #### Deangelo BECKFORD, 56948-0, CBCA, 03660-9 #### [facility] ([id number]) [address] [place] [address] 32477 MCV (RBC) [Entitic vol] 85 fL Normal 80-100 [facility] Comment on above: Performed By: #### Deangelo BECKFORD, 26252-5, CBCA, 14281-1 #### [facility] ([id number]) [address] [place] [address] 20475 Monocytes (Bld) [#/Vol] 1.0 10*3/uL High 0-0.9 [facility] Comment on above: Performed By: #### C ANALY, 68659-9, CBCA, 72551-1 #### [facility] ([id number]) [address] [place] [address] 93568 Monocytes/100 WBC (Bld) 13.1 % Normal [facility] Comment on above: Performed By: #### C ANALY, 25410-2, CBCA, 31605-0 #### [facility] ([id number]) [address] [place] [address] 34992 Neutrophils/100 WBC (Bld) 54.1 % Normal [facility] Comment on above: Performed By: #### C ANALY, 66236-2, CBCA, 60917-7 #### [facility] ([id number]) [address] [place] [address] 17434 Platelet mean volume (Bld) [Entitic vol] 7.4 fL Normal 7-12 [facility] Comment on above: Performed By: #### Deangelo BECKFORD, 65263-8, CBCA, 11540-8 #### [facility] ([id number]) [address] [place] [address] 93918 Platelets (Bld) [#/Vol] 301 10*3/uL Normal 150-450 [facility] Comment on above: Performed By: #### Deangelo BECKFORD, 03536-5, CBCA, 44608-4 #### [facility] ([id number]) [address] [place] [address] 45601 RBC COUNT 5.30 X10E12/L Normal 4.10-5.70 [facility] Comment on above: Performed By: #### Deangelo BECKFORD, 34202-4, CBCA, 61454-2 #### [facility] ([id number]) [address] [place] [address] 11859 WBC (Bld) [#/Vol] 7.7 10*3/uL Normal 4.0-11.0 [facility] Comment on above: Performed By: #### Deangelo BECKFORD, 14932-6, CBCA, 80961-2 #### [facility] ([id number]) [address] [place] [address] 64180 COMPREHENSIVE METABOLIC PANE Lawrence 10-28-2023 Albumin [Mass/Vol] 4.8 g/dL Normal 3.2-5.3 [facility] Comment on above: Performed By: #### Deangelo BECKFORD, 96161-1, CBCA, 69309-0 #### [facility] ([id number]) [address] [place] [address] 60817 ALP [Catalytic activity/Vol] 62 U/L Normal 39-130 [facility] Comment on above: Performed By: #### C ANALY, 59717-6, CBCA, 05949-3 #### [facility] ([id number]) [address] [place] [address] 79014 ALT [Catalytic activity/Vol] 34 U/L Normal 0-40 [facility] Comment on above: Performed By: #### C ANALY, 61562-9, CBCA, 19701-1 #### [facility] ([id number]) [address] [place] [address] 71529 Anion gap [Moles/Vol] 14 mmol/L Normal 5-15 [facility] Comment on above: Performed By: #### Deangelo BECKFORD, 92353-3, CBCA, 13348-2 #### [facility] ([id number]) [address] [place] [address] 11166 AST [Catalytic activity/Vol] 28 U/L Normal 0-41 [facility] Comment on above: Performed By: #### Deangelo BECKFORD, 19577-5, CBCA, 55642-2 #### [facility] ([id number]) [address] [place] [address] 83620 Bilirubin [Mass/Vol] 3.4 mg/dL High 0.3-1.2 [facility] Comment on above: Performed By: #### C ANALY, 49468-7, CBCA, 16885-3 #### [facility] ([id number]) [address] [place] [address] 70866 Calcium [Mass/Vol] 9.3 mg/dL Normal 8.5-10.5 [facility] Comment on above: Performed By: #### Deangelo BECKFORD, 36114-2, CBCA, 27772-5 #### [facility] ([id number]) [address] [place] [address] 26678 Chloride [Moles/Vol] 101 mmol/L Normal 98-109 [facility] Comment on above: Performed By: #### C ANALY, 86375-4, CBCA, 27214-3 #### [facility] ([id number]) [address] [place] [address] 46122 CO2 [Moles/Vol] 21 mmol/L Low 22-32 [facility] Comment on above: Performed By: #### C ANALY, 55008-2, CBCA, 69244-2 #### [facility] ([id number]) [address] [place] [address] 75190 Creatinine [Mass/Vol] 0.85 mg/dL Normal 0.70-1.20 [facility] Comment on above: Result Comment: METH OD TRACEABLE TO IDMS STANDARD Performed By: #### C ANALY, 43430-8, CBCA, 40004-7 #### [facility] ([id number]) [address] [place] [address] 70985 eGFR (CKD-EPI) NON-RACE DEPENDENT >90 Normal >59 [facility] Comment on above: Result Comment: Reported eGFR is based on the CKD-EPI 2020 equation that does not use a race coefficient. Performed By: #### C ANALY, 77756-8, CBCA, 34557-3 #### [facility] ([id number]) [address] [place] [address] 30236 Glucose [Mass/Vol] 96 mg/dL Normal 65-99 [facility] Comment on above: Performed By: #### C ANALY, 70433-3, CBCA, 09248-5 #### [facility] ([id number]) [address] [place] [address] 58816 Potassium [Moles/Vol] 3.1 mmol/L Low 3.5-5.0 [facility] Comment on above: Performed By: #### C ANALY, 15614-9, CBCA, 33646-0 #### [facility] ([id number]) [address] [place] [address] 73321 Protein [Mass/Vol] 8.1 g/dL High 6.0-8.0 [facility] Comment on above: Performed By: #### C ANALY, 27793-1, CBCA, 68195-5 #### [facility] ([id number]) [address] [place] [address] 86792 Sodium [Moles/Vol] 136 mmol/L Normal 134-146 [facility] Comment on above: Performed By: #### C ANALY, 49802-0, CBCA, 18188-8 #### [facility] ([id number]) [address] [place] [address] 00661 Urea nitrogen [Mass/Vol] 14 mg/dL Normal 5-23 [facility] Comment on above: Performed By: #### C ANALY, 53176-3, CBCA, 69303-9 #### [facility] ([id number]) [address] [place] [address] 78135 Fibrin D-dimer DDU (PPP) [Ma ss/Vol]on 10-28-2023 D DIMER <150 Normal <255 [facility] Comment on above: Result Comment: Results <255 ng/mL DDU: The presence of a VTE can safely be excluded with a negative D-Dimer result and Wells score. A negative result doesn't exclude the possibility of DIC. The test be repeated along with other diagnostic tests if the patient's symptoms persist or worsen. [email or web address] Performed By: #### C ANALY, 84425-1, CBCA, 02665-7 #### [facility] ([id number]) [address] [place] [address] 90047 Troponin I.cardiac High sens itivity method [Mass/Vol]on 10-28-2023 TROPONIN I, HIGH SENSITIVITY 2 ng/L Normal <21 [facility] Comment on above: Performed By: #### C KAROLINE BMP, 49034-4 #### [facility] ([id number]) [address] [place] [address] 28269 1 HOUR TROP I, HIGH SENSITIVITY 2 ng/L Normal <21 [facility] Comment on above: Performed By: #### C KAROLINE, BMP, 11607-7 #### [facility] ([id number]) [address] [place] [address] 92814 TROPONIN I, HIGH SENSITIVITY 4 ng/L Normal <21 [facility] Comment on above: Performed By: #### C MP, 62610-3, CBCA, 64194-7 #### [facility] ([id number]) [address] [place] [address] 92772 XR CHEST 1 VWon 10-28-2023 XR CHEST [...] Yu MD on 10/28/2023 12:32 AM Normal [facility] BASIC METABOLIC PANLon 10-14 Anion gap [Moles/Vol] 8 mmol/L Normal 5-15 [facility] Comment on above: Performed By: #### C KAROLINE, BMP, 04080-6 #### [facility] ([id number]) [address] [place] [address] 95950 Calcium [Mass/Vol] 9.2 mg/dL Normal 8.5-10.5 [facility] Comment on above: Performed By: #### C KAROLINE, BMP, 39615-3 #### [facility] ([id number]) [address] [place] [address] 55945 Chloride [Moles/Vol] 108 mmol/L Normal 98-109 [facility] Comment on above: Performed By: #### C DARIEL RAMEY, 07345-0 #### [facility] ([id number]) [address] [place] [address] 93538 CO2 [Moles/Vol] 21 mmol/L Low 22-32 [facility] Comment on above: Performed By: #### C DARIEL RAMEY, 36155-7 #### [facility] ([id number]) [address] [place] [address] 37981 Creatinine [Mass/Vol] 0.91 mg/dL Normal 0.70-1.20 [facility] Comment on above: Result Comment: METH OD TRACEABLE TO IDMS STANDARD Performed By: #### C DARIEL RAMEY, 28538-9 #### [facility] ([id number]) [address] [place] [address] 61633 eGFR (CKD-EPI) NON-RACE DEPENDENT >90 Normal >59 [facility] Comment on above: Result Comment: Reported eGFR is based on the CKD-EPI 1 equation that does not use a race coefficient. Performed By: #### C DARIEL RAMEY, 01710-2 #### [facility] ([id number]) [address] [place] [address] 14363 Glucose [Mass/Vol] 108 mg/dL High 65-99 [facility] Comment on above: Performed By: #### C DARIEL RAMEY, 77365-3 #### [facility] ([id number]) [address] [place] [address] 39798 Potassium [Moles/Vol] 3.0 mmol/L Low 3.5-5.0 [facility] Comment on above: Performed By: #### C DARIEL RAMEY, 96841-4 #### [facility] ([id number]) [address] [place] [address] 30093 Sodium [Moles/Vol] 137 mmol/L Normal 134-146 [facility] Comment on above: Performed By: #### Deangelo RAMEY [facility], 05386-8 #### [facility] ([id number]) [address] [place] [address] 46998 Urea nitrogen [Mass/Vol] 15 mg/dL Normal 5-23 [facility] Comment on above: Performed By: #### Deangelo RAMEY [facility], 93456-7 #### [facility] ([id number]) [address] [place] [address] 38113 CBC AND AUTO DIFFon 10-15-19 24 ABSOLUTE BASOPHIL 0.1 X10E9/L Normal 0.0-0.2 [facility] Comment on above: Performed By: #### Deangelo RAMEY [facility], 25176-8 #### [facility] ([id number]) [address] [place] [address] 16331 ABSOLUTE NEUTROPHIL 4.3 X10E9/L Normal 1.5-6.6 [facility] Comment on above: Performed By: #### Deangelo RAMEY [facility], 72837-7 #### [facility] ([id number]) [address] [place] [address] 03112 Basophils/100 WBC (Bld) 0.7 % Normal [facility] Comment on above: Performed By: #### Deangelo RAMEY [facility], 99947-9 #### [facility] ([id number]) [address] [place] [address] 72582 Eosinophils (Bld) [#/Vol] 0.0 10*3/uL Normal 0.0-0.4 [facility] Comment on above: Performed By: #### Deangelo RAMEY [facility], 13137-3 #### [facility] ([id number]) [address] [place] [address] 60643 Eosinophils/100 WBC (Bld) 0.3 % Normal [facility] Comment on above: Performed By: #### Deangelo RAMEY [facility], 91702-8 #### [facility] ([id number]) [address] [place] [address] 39293 Erythrocyte distribution width (RBC) [Ratio] 12.8 % Normal 11.5-15.0 [facility] Comment on above: Performed By: #### Deangelo RAMEY [facility], 82568-7 #### [facility] ([id number]) [address] [place] [address] 70038 Hematocrit (Bld) [Volume fraction] 44.9 % Normal 39-49 [facility] Comment on above: Performed By: #### DARIEL Bright BCA, 89090-8 #### [facility] ([id number]) [address] [place] [address] 76405 Hemoglobin (Bld) [Mass/Vol] 15.9 g/dL Normal 13.0-17.0 [facility] Comment on above: Performed By: #### Deangelo RAMEY [facility], 37984-9 #### [facility] ([id number]) [address] [place] [address] 24821 Lymphocytes (Bld) [#/Vol] 2.4 10*3/uL Normal 1.0-3.5 [facility] Comment on above: Performed By: #### Deangelo RAMEY [facility], 56598-2 #### [facility] ([id number]) [address] [place] [address] 54357 Lymphocytes/100 WBC (Bld) 31.2 % Normal [facility] Comment on above: Performed By: #### DARIEL Bright BCA, 35234-9 #### [facility] ([id number]) [address] [place] [address] 00784 MCH (RBC) [Entitic mass] 30.0 pg Normal 27-34 [facility] Comment on above: Performed By: #### DARIEL Bright BCA, 64867-2 #### [facility] ([id number]) [address] [place] [address] 55473 MCHC (RBC) [Mass/Vol] 35.4 g/dL Normal 32-36 [facility] Comment on above: Performed By: #### DARIEL Bright BCA, 70698-8 #### [facility] ([id number]) [address] [place] [address] 04552 MCV (RBC) [Entitic vol] 85 fL Normal 80-100 [facility] Comment on above: Performed By: #### DARIEL Bright BCA, 50503-4 #### [facility] ([id number]) [address] [place] [address] 88856 Monocytes (Bld) [#/Vol] 0.9 10*3/uL Normal 0-0.9 [facility] Comment on above: Performed By: #### DARIEL Bright BCA, 91835-9 #### [facility] ([id number]) [address] [place] [address] 59351 Monocytes/100 WBC (Bld) 11.4 % Normal [facility] Comment on above: Performed By: #### DARIEL Bright BCA, 27639-7 #### [facility] ([id number]) [address] [place] [address] 09359 Neutrophils/100 WBC (Bld) 56.4 % Normal [facility] Comment on above: Performed By: #### DARIEL Bright BCA, 43171-1 #### [facility] ([id number]) [address] [place] [address] 19190 Platelet mean volume (Bld) [Entitic vol] 8.0 fL Normal 7-12 [facility] Comment on above: Performed By: #### DARIEL Bright BCA, 62111-2 #### [facility] ([id number]) [address] [place] [address] 12845 Platelets (Bld) [#/Vol] 323 10*3/uL Normal 150-450 [facility] Comment on above: Performed By: #### C DARIEL RAMEY, 42579-0 #### [facility] ([id number]) [address] [place] [address] 96259 RBC COUNT 5.30 X10E12/L Normal 4.10-5.70 [facility] Comment on above: Performed By: #### C DARIEL RAMEY, 91928-0 #### [facility] ([id number]) [address] [place] [address] 40557 WBC (Bld) [#/Vol] 7.7 10*3/uL Normal 4.0-11.0 [facility] Comment on above: Performed By: #### Deangelo RAMEY [facility], 08851-3 #### [facility] ([id number]) [address] [place] [address] 18266 Troponin I.cardiac High sens itivity method [Mass/Vol]on 10-15-2023 1 HOUR TROP I, HIGH SENSITIVITY 3 ng/L Normal <21 [facility] Comment on above: Performed By: #### 8 9579-7 #### [facility] ([id number]) [address] [place] [address] 66794 TROPONIN I, HIGH SENSITIVITY 2 ng/L Normal <21 [facility] Comment on above: Performed By: #### DARIEL Bright BCA, 34279-1 #### [facility] ([id number]) [address] [place] [address] 33442 XR CHEST 1 VWon 10-15-2023 XR CHEST 1 VW XR CHEST 1 VW STUDY: XR CHEST 1 VW INDICATION: Shortness of breath. COMPARISON: 09/22/2023 FINDINGS/IMPRESSION: * No acute cardiopulmonary process, by radiograph. Finalized by Koffi Dobbs on 10/15/2023 1:59 PM Normal [facility] COVID CepheidOrdered By: Benjamin Gordon on 09-01-2023 SARS-CoV-2 (COVID-19) Ab IA Ql Negative Negative [facility] Comment on above: This is a duplicate [employer] X[employer] Xpress CoV-2/Flu/RSV Plus RNA by RT-PCR result to be used for statistical tracking purpose only. SARS-CoV-2 (COVID-19) RNA ISABEL+probe Ql (Unsp spec) [facility] Streptococcus pyogenes antig en detectionOrdered By: Damian Gordon on 09-01-2023 S. pyogenes Ag Ql (Unsp spec) [facility] Cholesterol [Mass/volume] in Serum or PlasmaOrdered By: Pankaj Britton on 01-13-2022 Cholesterol [Mass/Vol] 128 mg/dL 140-200 [facility] Comment on above: Chol less than 200 m g/dl low risk Chol 201-239 mg/dl borderline risk Chol 240 mg/dl and greater high risk Cholesterol in LDL Calc [Mas s/Vol]Ordered By: Pankaj Britton on 01-13-2022 Cholesterol in LDL [Mass/Vol] 49 mg/dL 0-100 [facility] Comment on above: LDL ATP III CLASSIFI CATION LDL less than 100 mg/dL Optimal LDL 100-129 mg/dL Near or above optimal LDL 130-159 mg/dL Borderline high LDL 160-189 mg/dL High LDL greater than 189 mg/dL Very high Cholesterol in VLDL Calc [Ma ss/Vol]Ordered By: Pankaj Britton on 01-13-2022 Cholesterol in VLDL [Mass/Vol] 10 mg/dL [facility] No Panel InformationOrdered By: Pankaj Britton on 01-13-2022 25-Hydroxy Vitamin D Total 18.9 ng/mL 30-100 [facility] Comment on above: VITAMIN D STATUS 25( [...] Cholesterol in HDL [Mass/Vol] 68 mg/dL 29-71 [facility] Comment on above: HDL CHOL ATP-III CLA SSIFICATION Cardiovascular Risk HDL > or equal to 60 mg/dL LOW HDL < 40 mg/dL HIGH Serum or plasma total choles terol/high density lipoprotein (HDL) cholesterol mass ratOrdered By: Pankaj Britton on 01-13-2022 Cholesterol.total/Chol esterol in HDL [Mass ratio] 1.9 {ratio} <5.0 [facility] TSH DL <= 0.005 mIU/L QnOrde red By: Pankaj Britton on 01-13-2022 TSH Qn 0.57 m[IU]/L 0.45-5.33 [facility] Triglyceride [Mass/volume] i n Serum or PlasmaOrdered By: Pankaj Britton on 01-13-2022 Triglyceride [Mass/Vol] 54 mg/dL 35-149 [facility] Comment on above: TRIG ATP III CLASSIF ICATION TRIG less than 150 mg/dL Normal TRIG 150-199 mg/dL Borderline high TRIG 200-500 mg/dL High TRIG greater than 500 mg/dL Very high Standard traceable to the Center for Disease Conrtrol and Prevention (CDC) test method. CARDIAC BERNA ADMITon 021 CK [Catalytic activity/Vol] 481 U/L Critically high 55-170 [facility] Comment on above: Result Comment: test repeated, critical value verified Performed By: #### C ROCKY #### [facility] [address] [id number] Esau Farrar CK.MB [Mass/Vol] 2.31 ng/mL Normal <=2.37 [facility] Comment on above: Performed By: #### C ROCKY #### [facility] [address] [id number] Esau Farrar HSTROP 6.1 pg/mL Normal 4.0-42.[address] [facility] Comment on above: Result Comment: CUT- OFF POINTS HAVE BEEN ESTABLISHED BASED ON THE FOURTH UNIVERSAL DEFINITIONS OF MYOCARDIAL INFARCTION. THE UPPER REFERENCE LIMIT (URL) OF TROPONIN, DEFINED THE 99TH PERCENTILE OF cTnI DISTRIBUTION IN A REFERENCE POPULATION, HAS BEEN CONFIRMED THE DECISION THRESHOLD FOR [place] DIAGNOSIS. Performed By: #### C MADM #### [facility] [address] [place] [address] Esau Farrar MAHESH 92.0 ng/mL Normal <=121.[address] [facility] Comment on above: Performed By: #### C MADM #### [facility] [address] [place] [address] Esau Farrar CBC AUTO DIFFon 10-21-2020 BASO # 0.0 103/ul Normal 0.0-0.[address] [facility] Comment on above: Performed By: #### C BC #### [facility] [address] [place] [address] Esau Farrar Basophils/100 WBC (Bld) 0.4 % Normal 0.2-2.[address] [facility] Comment on above: Performed By: #### C BC #### [facility] [address] [place] [address] Esau Farrar EO # 0.0 103/ul Normal 0.0-0.[address] [facility] Comment on above: Performed By: #### C BC #### [facility] [address] [place] [address] Esau Farrar Eosinophils/100 WBC (Bld) 0.0 % Critically low 0.9-7.[address] [facility] Comment on above: Performed By: #### C BC #### [facility] [address] [place], [place] [id number] Esau Farrar Erythrocyte distribution width (RBC) [Ratio] 12.4 % Normal 11.0-15.[address] [facility] Comment on above: Performed By: #### C BC #### [facility] [address] [place] [address] Esau Farrar Hematocrit (Bld) [Volume fraction] 44.6 % Normal 42.0-54.[address] [facility] Comment on above: Performed By: #### C BC #### [facility] [address] [place], [place] [id number] Esau Leni Hemoglobin (Bld) [Mass/Vol] 15.8 g/dL Normal 14.0-18.[address] [facility] Comment on above: Performed By: #### C BC #### [facility] [address] [place] [address] Esau Leni IG # 0.02 10e3/ul Normal 0.00-0.[address] [facility] Comment on above: Performed By: #### C BC #### [facility] [address] [place] [address] Esau Leni IG % 0.2 % Normal 0.0-0.[address] [facility] Comment on above: Performed By: #### C BC #### [facility] [address] [place] [address] Esau Leni LYMPH # 1.7 103/ul Normal 1.2-3.[address] [facility] Comment on above: Performed By: #### C BC #### [facility] [address] [place] [address] Esau Farrar Lymphocytes/100 WBC (Bld) 16.0 % Critically low 20.5-60.[address] [facility] Comment on above: Performed By: #### C BC #### [facility] [address] [place], [place] [id number] Esau Farrar MANUAL DIFF REQ NO Normal [facility] Comment on above: Performed By: #### C BC #### [facility] [address] [place], [place] [id number] Esauronda Siddiqien MCH (RBC) [Entitic mass] 29.8 pg Normal 25.9-34.0 [facility] Comment on above: Performed By: #### C BC #### [facility] [address] [place], [place] [id number] Esauronda Farrar MCHC (RBC) [Mass/Vol] 35.4 g/dL Critically high 29.9-35.[address] [facility] Comment on above: Performed By: #### C BC #### [facility] [address] [place], [place] [address] Esauronda Siddiqien MCV (RBC) [Entitic vol] 84.2 fL Normal 80.0-94.[address] [facility] Comment on above: Performed By: #### C BC #### [facility] [address] [place] [id number] Esau Leni MONO # 0.8 103/ul Normal 0.3-0.8 [facility] Comment on above: Performed By: #### C BC #### [facility] [address] [place] [id number] Esau Leni Monocytes/100 WBC (Bld) 7.9 % Normal 1.7-12.[address] [facility] Comment on above: Performed By: #### C BC #### [facility] [address] [place], [place] [id number] Esau Leni NEUT # 7.9 103/ul Critically high 1.4-6.5 [facility] Comment on above: Performed By: #### C BC #### [facility] [address] [place], [place] [id number] Esau Leni Neutrophils/100 WBC (Bld) 75.5 % Critically high 43.0-75.[address] [facility] Comment on above: Performed By: #### C BC #### [facility] [address] [place] [id number] Esauronda Farrar Platelet mean volume (Bld) [Entitic vol] 10.0 fL Normal 9.5-13.5 [facility] Comment on above: Performed By: #### C BC #### [facility] [address] [place] [id number] Esau Leni PLT 409 103/ul Normal 150-450 [facility] Comment on above: Performed By: #### C BC #### [facility] [address] [place], [place] [id number] Esau Leni RBC 5.30 106/ul Normal 4.70-6.10 [facility] Comment on above: Performed By: #### C BC #### [facility] [address] [place] [address] Esau Farrar WBC 10.5 103/ul Normal 4.0-11.[address] [facility] Comment on above: Performed By: #### C BC #### [facility] [address] [place] [address] Esau Farrar DRUG SCREEN RAPID (URINE)on 10-21-2020 AMP Positive Abnormal NEGATIVE [facility] Comment on above: Performed By: #### E RUR, DRUGRPD, UMICRO #### [facility] [address] [place] [address] Esau Farrar BAR Negative Normal NEGATIVE [facility] Comment on above: Performed By: #### E RUR, DRUGRPD, UMICRO #### [facility] [address] [place] [address] Esau Farrar BUP Negative Normal NEGATIVE [facility] Comment on above: Performed By: #### E RUR, DRUGRPD, UMICRO #### [facility] [address] [place] [address] Esau Farrar BZO Negative Normal NEGATIVE [facility] Comment on above: Performed By: #### E RUR, DRUGRPD, UMICRO #### [facility] [address] [place] [address] Esau Farrar KYM Negative Normal NEGATIVE [facility] Comment on above: Performed By: #### E RUR, DRUGRPD, UMICRO #### [facility] [address] [place] [address] Esau Farrar CUT-OFFS SEE BELOW Normal [facility] Comment on above: Result Comment: AMP (Amphetamine): [...] By: #### E RUR, DRUGRPD, UMICRO #### [facility] [address] [place] [address] Esau Leni DRUG CUT HEADER DRUG CLASS TEST SYSTEM CUT-OFF CONCENTRATIONS ARE FOLLOWS: Normal [facility] Comment on above: Performed By: #### E RUR, DRUGRPD, UMICRO #### [facility] [address] [place] [address] Esau Leni mAMP Positive Abnormal NEGATIVE [facility] Comment on above: Performed By: #### E RUR, DRUGRPD, UMICRO #### [facility] [address] [place] [address] Esau Leni MTD Negative Normal NEGATIVE [facility] Comment on above: Performed By: #### E RUR, DRUGRPD, UMICRO #### [facility] [address] [place] [address] Esau Leni OPI Negative Normal NEGATIVE [facility] Comment on above: Performed By: #### E RUR, DRUGRPD, UMICRO #### [facility] [address] [place] [address] Esau Leni OXY Negative Normal NEGATIVE [facility] Comment on above: Performed By: #### E RUR, DRUGRPD, UMICRO #### [facility] [address] [place] [address] Esau Leni PCP Negative Normal NEGATIVE [facility] Comment on above: Performed By: #### E RUR, DRUGRPD, UMICRO #### [facility] [address] [place] [address] Esau Leni PPX Negative Normal NEGATIVE [facility] Comment on above: Performed By: #### E RUR, DRUGRPD, UMICRO #### [facility] [address] [place] [address] Esau Leni TCA Negative Normal NEGATIVE [facility] Comment on above: Performed By: #### E RUR, DRUGRPD, UMICRO #### [facility] [address] [place] [address] Esau Leni THC Negative Normal NEGATIVE [facility] Comment on above: Performed By: #### BRAYAN REID UMICRO #### [facility] [address] [place] [address] Esau Leni ER URINE PROFILEon 1 Bilirubin Ql (U) MODERATE Abnormal NEGATIVE [facility] Comment on above: Performed By: #### BRAYAN REID UMICRO #### [facility] [address] [place] [address] Esau Leni Clarity (U) SL CLOUDY Abnormal CLEAR [facility] Comment on above: Performed By: #### BRAYAN REID UMICRO #### [facility] [address] [place] [address] Esau Leni Color (U) DK. ORANGE Abnormal YELLOW [facility] Comment on above: Performed By: #### BRAYAN REID UMICRO #### [facility] [address] [place] [address] Esau Leni ERUAHD A micrscopic examination will be performed if indicated. Normal [facility] Comment on above: Performed By: #### BRAYAN REID UMICRO #### [facility] [address] [place] [address] Esau Leni Glucose Ql (U) Negative Normal NEGATIVE [facility] Comment on above: Performed By: #### BRAYAN REID UMICRO #### [facility] [address] [place] [address] Esau Leni Hemoglobin Ql (U) Negative Normal NEGATIVE [facility] Comment on above: Performed By: #### BRAYAN REID UMICRO #### [facility] [address] [place] [address] Esau Leni Ketones Ql (U) 15 mg/dl Abnormal NEGATIVE [facility] Comment on above: Performed By: #### BRAYAN REID UMICRO #### [facility] [address] [place] [address] Esau Leni LEUKOCYTES Negative Normal NEGATIVE [facility] Comment on above: Performed By: #### BRAYAN REID UMICRO #### [facility] [address] [place] [address] Esau Leni Nitrite Ql (U) Negative Normal NEGATIVE [facility] Comment on above: Performed By: #### BRAYAN REID UMICRO #### [facility] [address] [place] [address] Esau Leni pH (U) 6.0 [pH] Normal 5-9 [facility] Comment on above: Performed By: #### BRAYAN REID UMICRO #### [facility] [address] [place] [address] Esau Farrar Protein (U) [Mass/Vol] 30 mg/dL Abnormal NEGAT JUAN/ TRACE [facility] Comment on above: Performed By: #### BRAYAN REID UMICRO #### [facility] [address] [place] [address] Esau Farrar SPEC GRAVITY >=1.030 Abnormal 1.005-<=1.025 [facility] Comment on above: Performed By: #### BRAYAN REID UMICRO #### [facility] [address] [place] [address] Esau Farrar UR MICRO IND INDICATED Normal [facility] Comment on above: Performed By: #### BRAYAN REID UMICRO #### [facility] [address] [place] [address] Esau Farrar Urobilinogen Qn (U) 2.0 {Brandi'U}/dL Abnormal 0.2 - 1. 0 [facility] Comment on above: Performed By: #### BRAYAN REID UMICRO #### [facility] [address] [place] [address] Esau Farrar POINT OF CARE GLUCOSEon 06- Glucose [Mass/Vol] 111 mg/dL Critically high 74-106 [facility] Comment on above: Result Comment: Foll ow Protocol Performed By: #### P OCGLUC #### [facility] [address] [place], [place] [id number] Esau Farrar PROF 14(COMP METB)on 021 Albumin [Mass/Vol] 4.6 g/dL Normal 3.5-5.0 [facility] Comment on above: Performed By: #### C MP #### [facility] [address] [place], [place] [id number] Esau Leni Albumin/Globulin [Mass ratio] 1.1 {ratio} Normal [facility] Comment on above: Performed By: #### C MP #### [facility] [address] [place], [place] [id number] Esau Leni ALP [Catalytic activity/Vol] 64 U/L Normal 38-[address] [facility] Comment on above: Performed By: #### C MP #### [facility] [address] [place], [place] [id number] Esau Leni ALT [Catalytic activity/Vol] 51 U/L Normal 21-[address] [facility] Comment on above: Performed By: #### C MP #### [facility] [address] [place], [place] [id number] Esau Leni Anion gap [Moles/Vol] 18.0 mmol/L Normal [facility] Comment on above: Performed By: #### C MP #### [facility] [address] [place], [place] [id number] Esau Leni AST [Catalytic activity/Vol] 32 U/L Normal 17-[address] [facility] Comment on above: Performed By: #### C MP #### [facility] [address] [place], [place] [id number] Esau Leni Bilirubin [Mass/Vol] 2.0 mg/dL Critically high 0.2-1.[address] [facility] Comment on above: Performed By: #### C MP #### [facility] [address] [place], [place] [id number] Esau Leni Calcium [Mass/Vol] 9.7 mg/dL Normal 8.4-10.2 [facility] Comment on above: Performed By: #### C MP #### [facility] [address] [place] [id number] Esau Leni Chloride [Moles/Vol] 104 mmol/L Normal 98-107 [facility] Comment on above: Performed By: #### C MP #### [facility] [address] [place], [place] [id number] Esau Leni CO2 [Moles/Vol] 24.4 mmol/L Normal 22.0-30.0 [facility] Comment on above: Performed By: #### C MP #### [facility] [address] [place], [place] [id number] Esau Leni Creatinine [Mass/Vol] 1.06 mg/dL Normal 0.66-1.25 [facility] Comment on above: Performed By: #### C MP #### [facility] [address] [place], [place] [id number] Esau Leni EGFR-AF DJIBOUTIAN >60 Normal >=60 [facility] Comment on above: Performed By: #### C MP #### [facility] [address] [place], [place] [id number] Esau Leni EGFR-NON AF DJIBOUTIAN >60 Normal >=60 [facility] Comment on above: Performed By: #### C MP #### [facility] [address] [place], [place] [id number] Esau Leni Globulin (S) [Mass/Vol] 4.1 g/dL Normal [facility] Comment on above: Performed By: #### C MP #### [facility] [address] [place] [address] Esau Leni Glucose [Mass/Vol] 115 mg/dL Critically high 74-106 [facility] Comment on above: Performed By: #### C MP #### [facility] [address] [place] [address] Esau Leni Potassium [Moles/Vol] 3.4 mmol/L Normal 3.4-5.0 [facility] Comment on above: Performed By: #### C MP #### [facility] [address] [place] [address] Esau Leni Protein [Mass/Vol] 8.7 g/dL Critically high 6.1-8.2 [facility] Comment on above: Performed By: #### C MP #### [facility] [address] [place] [address] Esau Farrar Sodium [Moles/Vol] 143 mmol/L Normal 137-145 [facility] Comment on above: Performed By: #### C MP #### [facility] [address] [place] [id number] Esau Farrar Urea nitrogen [Mass/Vol] 14.0 mg/dL Normal 9.0-20.[address] [facility] Comment on above: Performed By: #### C MP #### [facility] [address] [place] [address] Esau Farrar Urea nitrogen/Creatinine [Mass ratio] 13.2 mg/mg Normal [facility] Comment on above: Performed By: #### C MP #### [facility] [address] [place] [address] Esau Farrar PROTIMEon 10-21-2020 INR Coag (PPP) [Relative time] 1.05 {INR} Normal [facility] Comment on above: Performed By: #### P TT, PT #### [facility] [address] [place], [place] [id number] Esau Farrar INR GUIDELINES SEE BELOW Normal [facility] Comment on above: Result Comment: SANDHYA RED INR: 2.0 - 3.0 CONDITIONS NOT LISTED BELOW 2.5 - 3.5 FOR PROSTHETIC HEART VALVE REPLACEMENT 2.5 - 3.5 RECURRENT THROMBOSIS Performed By: #### P TT, PT #### [facility] [address] [place] [address] Esau Farrar PT Coag (PPP) [Time] 11.4 s Normal 9.0-11.[address] [facility] Comment on above: Performed By: #### P TT, PT #### [facility] [address] [place] [address] Esau Farrar PTTon 10-21-2020 aPTT Coag (Bld) [Time] 27.0 s Normal 22.3-36.2 [facility] Comment on above: Performed By: #### P TT, PT #### [facility] [address] [place] [id number] Esau Leni URINE MICROSCOPIC ONLYon BACTERIA TRACE Abnormal NONE SEEN [facility] Comment on above: Performed By: #### E RUR, DRUGRPD, UMICRO #### [facility] [address] [place], [place] [id number] Easu Leni Bacteria identified Cx Nom (U) NOT INDICATED Normal [facility] Comment on above: Performed By: #### E RUR, DRUGRPD, UMICRO #### [facility] [address] [place], [place] [id number] Esau Leni CAST NONE SEEN Normal NONE SEEN [facility] Comment on above: Performed By: #### E RUR, DRUGRPD, UMICRO #### [facility] [address] [place], [place] [id number] Esau Leni Crystals LM Nom (Urine sed) NONE SEEN Normal NONE SEEN [facility] Comment on above: Performed By: #### E RUR, DRUGRPD, UMICRO #### [facility] [address] [place], [place] [id number] Esau Leni Epithelial cells LM Ql (Urine sed) RARE Normal NONE SEEN /RARE [facility] Comment on above: Performed By: #### E RUR, DRUGRPD, UMICRO #### [facility] [address] [place], [place] [id number] Esau Leni MUCOUS LARGE Abnormal NONE SEEN [facility] Comment on above: Performed By: #### E RUR, DRUGRPD, UMICRO #### [facility] [address] [place] [address] Esau Leni RBC 0-2 Normal 0-2 [facility] Comment on above: Performed By: #### E RUR, DRUGRPD, UMICRO #### [facility] [address] [place], [place] [id number] Esau Leni WBC 0-2 Abnormal NONE SEEN [facility] Comment on above: Performed By: #### E RUR, DRUGRPD, UMICRO #### [facility] [address] [place], [place] [address] Esau Farrar HCV RNA [facility]nt[facility] HepC RNA PCR Qnt-[place] [id number] IU/mL Abnormal Undetected [facility] Comment on above: Result Comment: Resu lt in log IU/mL is 5.19. ADDITIONAL INFORMATION The quantification range of this assay is 15 to 100,000,000 IU/mL (1.18 log to 8.00 log IU/mL). Testing was performed using the buck HCV test ([employer] with the buck [employer] System. Test Performed by: [place] [address] [employer] Floorperson: Tonny Lobo M.D. Ph.D.; CLIA# [id number] Performed By: #### C [id number] #### [facility] [address] [place] [address] RPR Screenon 09-30-2020 RPR Ql Non-Reactive Normal Non-Reactive [facility] Comment on above: Performed By: #### C [id number] #### [facility] [address] [place] [address] .Fentanyl Scrn wo Conf,Uron 09-28-2020 Ur Fentanyl Scrn Negative Normal NEG <1.0 [facility] Comment on above: Result Comment: Urin [...] presence of methamphetamine Performed By: #### C [id number] #### [address] [address] Ur Fentanyl Scrn Qnt 0.46 ng/mL Normal <=0.[address] [facility] Comment on above: Performed By: #### C [id number] #### [address] [address] .UA Microscp Aon 09-28-2020 UA Mucus Present Abnormal Absent [facility] Comment on above: Performed By: #### T SH #### [address] [address] UA RBC Quant 2 /HPF Normal 0-5 [facility] Comment on above: Performed By: #### T SH #### [address] [address] UA WBC Quant 10 /HPF High 0-5 [facility] Comment on above: Performed By: #### T SH #### [address] [address] .eGFRon 09-28-2020 eGFR AA >60 Normal >=60 [facility] Comment on above: Result Comment: See comment. Performed By: #### E GFR #### [address] [address] eGFR Non-AA >60 Normal >=60 [facility] Comment on above: Result Comment: Stag es [...] years Performed By: #### E GFR #### [facility] [address] [place] [address] AMI 12Hron 09-28-2020 12 Hour CPK 595 ng/mL High 49-397 [facility] Comment on above: Performed By: #### C [id number] #### [facility] [address] [place] [address] Troponin I.cardiac [Mass/Vol] 0.16 ng/mL Critically abnormal 0.00-0.03 [facility] Comment on above: Result Comment: Test completion time: 1650 Called date and time: 09/28/2020 16:50:34 EDT Result called to and read back by: Rubi ALONZO ICU (First, Last, Title, Location) An increased Troponin-I value, in the absence of myocardial ischemia, may indicate other etiologies of cardiac damage. Performed By: #### C [id number] #### [facility] [address] [place] [address] [id number] 09-28-2020 Troponin I.cardiac [Mass/Vol] 0.21 ng/mL Critically abnormal 0.00-0.03 [facility] Comment on above: Result Comment: Test completion time: 1230 Called date and time: 09/28/2020 12:33:14 EDT Result called to and read back by: Alana Martinez RN ICU (First, Last, Title, Location) An increased Troponin-I value, in the absence of myocardial ischemia, may indicate other etiologies of cardiac damage. Performed By: #### C [id number] #### [facility] [address] [place] [address] 6 Hour Myoglobin 35.7 ng/mL Normal 17.4-105.7 [facility] Comment on above: Performed By: #### C [id number] #### [facility] [address] [place] [address] CBCon 09-28-2020 Erythrocyte distribution width (RBC) [Ratio] 13.1 % Normal 11.6-14.8 [facility] Comment on above: Performed By: #### C D:[id number] #### [place] [employer] [address] [place] [address] Hematocrit (Bld) [Volume fraction] 43.7 % Normal 41.0-53.0 [facility] Comment on above: Performed By: #### C [id number] #### [facility] [employer] [address] [place] [address] Hemoglobin (Bld) [Mass/Vol] 15.4 g/dL Normal 13.5-17.5 [facility] Comment on above: Performed By: #### C D:[id number] #### [place] [employer] [address] [place] [address] MCH (RBC) [Entitic mass] 30.8 pg Normal 27.0-35.0 [facility] Comment on above: Performed By: #### C D:[id number] #### [place] [employer] [address] [place] [address] MCHC 35.2 % Normal 31.0-37.0 [facility] Comment on above: Performed By: #### C D:[id number] #### [place] [employer] [address] [place] [address] MCV (RBC) [Entitic vol] 87.7 fL Normal 80.0-100.0 [facility] Comment on above: Performed By: #### C D:[id number] #### [facility] [employer] [address] [place] [address] Platelet 264 x10*3/mcL Normal 150-350 [facility] Comment on above: Performed By: #### C D:[id number] #### [facility] [employer] [address] [place] [address] Platelet mean volume (Bld) [Entitic vol] 7.4 fL Normal 6.7-10.6 [facility] Comment on above: Performed By: #### C D:[id number] #### [facility] [employer] [address] [place] [address] RBC 4.98 x10*6/mcL Normal 4.30-5.80 [facility] Comment on above: Performed By: #### C D:[id number] #### [facility] [address] [place] [address] WBC 6.9 x10*3/mcL Normal 4.5-11.0 [facility] Comment on above: Performed By: #### C D:[id number] #### [facility] [address] [place] [address] CMPon 09-28-2020 Albumin [Mass/Vol] 4.4 g/dL Normal 3.2-4.9 [facility] Comment on above: Performed By: #### C D:[id number] #### [facility] [address] [place] [address] Albumin/Globulin [Mass ratio] 1.2 {ratio} Normal 1.1-2.2 [facility] Comment on above: Performed By: #### C D:[id number] #### [place] [employer] [address] [place] [address] Alk Phos 62 IU/L Normal 32-91 [facility] Comment on above: Performed By: #### C D:[id number] #### [facility] [address] [place] [address] ALT [Catalytic activity/Vol] 44 U/L Normal 17-63 [facility] Comment on above: Performed By: #### C D:[id number] #### [facility] [address] [place] [address] Anion gap [Moles/Vol] 16 mmol/L Normal 7-17 [facility] Comment on above: Performed By: #### C D:[id number] #### [facility] [address] [place] [address] AST [Catalytic activity/Vol] 44 U/L High 15-41 [facility] Comment on above: Performed By: #### C D:[id number] #### [facility] [facility] [employer] [address] [place] [address] Bili Total 2.3 mg/dL High 0.3-1.2 [facility] Comment on above: Performed By: #### C D:[id number] #### [facility] [address] [place] [address] Calcium [Mass/Vol] 9.0 mg/dL Normal 8.5-10.3 [facility] Comment on above: Performed By: #### C D:[id number] #### [facility] [address] [place] [address] Chloride [Moles/Vol] 103 mmol/L Normal 98-[address] [facility] Comment on above: Performed By: #### C D:[id number] #### [facility] [address] [place] [address] CO2 [Moles/Vol] 24 mmol/L Normal 22-32 [facility] Comment on above: Performed By: #### C D:[id number] #### [facility] [address] [place] [address] Creatinine [Mass/Vol] 0.68 mg/dL Normal 0.61-1.24 [facility] Comment on above: Performed By: #### C D:[id number] #### [facility] [address] [place] [address] Glucose [Mass/Vol] 88 mg/dL Normal 70-99 [facility] Comment on above: Performed By: #### C D:[id number] #### [facility] [address] [place] [address] Potassium [Moles/Vol] 3.8 mmol/L Normal 3.4-4.8 [facility] Comment on above: Performed By: #### C D:[id number] #### [facility] [address] [place] [address] Protein [Mass/Vol] 8.0 g/dL Normal 6.5-8.1 [facility] Comment on above: Performed By: #### C D:[id number] #### [facility] [address] [place] [address] Sodium [Moles/Vol] 139 mmol/L Normal 133-142 [facility] Comment on above: Performed By: #### C D:[id number] #### [facility] [address] [place] [address] Urea nitrogen [Mass/Vol] 25 mg/dL Normal 8-26 [facility] Comment on above: Performed By: #### C D:[id number] #### [facility] [address] [place] [address] Urea nitrogen/Creatinine [Mass ratio] 36.8 mg/mg High 10.0-20.0 [facility] Comment on above: Performed By: #### C D:[id number] #### [facility] [address] [place] [address] Cardiac Echocardiogram Trans thoracicon 09-28-2020 Cardiac Echocardiogram Transthoracic TRANSTHORACIC ECHOCARDIOGRAM Study Date/Time: Sep 28 2020 2:18PM BP: 97 / 63 HR: 65 bpm HT/WT: 165 cm (65 in) / 74 kg (162.8 lb) BSA/BMI: 1.81 m^2 / 27.2 kg/m^2 ORDERING PROVIDER: Paty Daniel INTERPRETING PHYSICIAN: Judith Licona MD SENIOR MEDIA DIRECTOR: Babita Arrington RDCS INDICATIONS: SVT, Abnormal EKG. [...] by Anish, (more content not included)... Normal [facility] HIV1/2 Ab,Ag Scnon HIV-1/2 Ab,Ag 0.10 [facility] Comment on above: Performed By: #### C [id number] #### [employer] [address] [place] [address] HIV-1/2 Ab,Ag Interp Normal Negative [facility] Comment on above: Result Comment: N egative Negative Performed By: #### C D:[id number] #### [employer] [address] [place] [address] HepAcute Profon 09-28-2020 HCV Signal to Cutoff Ratio 32.20 [facility] Comment on above: Performed By: #### H PSC #### [facility] [address] [place] [address] Hep A IgM 0.02 Normal [facility] Comment on above: Performed By: #### H PSC #### [facility] [address] [place] [address] Hep A IgM Interp Normal Negative [facility] Comment on above: Result Comment: Ne gative Negative Performed By: #### H PSC #### [address] [place] [address] Hep B Core IgM 0.04 Normal [facility] Comment on above: Performed By: #### H PSC #### [address] [address] Hep B Core IgM Interp Normal Negative [facility] Comment on above: Result Comment: Ne gative Negative Performed By: #### H PSC #### [address] [address] Hep Bs Ag Interp Normal Negative [facility] Comment on above: Result Comment: N egative Negative Performed By: #### H PSC #### [address] [address] Hep C IgG Interp Abnormal Negative [facility] Comment on above: Result Comment: Re active This specimen is reactive by the [employer] [facility]00 Hepatitis C Antibody Screen. Anti-HCV IgG detected. Patient is presumed to be infected with HCV, state or associated disease not determined. Confirmation of this screening result is required. Per CDC guidelines, reactive antibody screens reflex to Hepatitis C Virus (HCV) RNA Detection and Quantification by RT-PCR. Reactive Performed By: #### H PSC #### [address] [address] MRSA, PCRon 09-28-2020 Methicillin Resistant Staph aurus(MRSA) Positive Normal [facility] Comment on above: Result Comment: Test completion time: 1150 Called date and time: 09/28/2020 11:53:26 EDT Result called to and read back by: STEFAN MARTINEZ RN (First, Last, Title, Location) The [employer] Xpert MRSA Assay is a qualitative in [...] clinician. Performed By: #### M RSAPC #### [address] [address] Magnesiumon 09-28-2020 Magnesium [Mass/Vol] 2.5 mg/dL High 1.7-2.[address] [facility] Comment on above: Performed By: #### T SH #### [address] [address] PTon 09-28-2020 INR Coag (PPP) [Relative time] 1.0 {INR} Normal <=3.5 [facility] Comment on above: Result Comment: INR has no normal range. INR Therapeutic range is: 2.0-3.0 (AF, CVA, TIAs, DVT prophylaxis, acute DVT) 2.5-3.5 (Mech heart valves, recurrent thrombosis/emboli) Performed By: #### P TINR #### [address] [address] PT Coag (PPP) [Time] 11.0 s Normal 9.4-12.[address] [facility] Comment on above: Performed By: #### P TINR #### [address] [address] PTTon 09-28-2020 aPTT Coag (Bld) [Time] 23.4 s Normal 20.2-27.0 [facility] Comment on above: Performed By: #### T SH #### [address] [place] [address] Phosphoruson 09-28-2020 Phosphate [Mass/Vol] 3.6 mg/dL Normal 2.5-4.[address] [facility] Comment on above: Performed By: #### P HOS #### [address] [place] [address] Progress Note-Nurseon 2020 Progress Note-Nurse Pt was standing in the doorway, asking the senior technical writer when he could go home. The senior technical writer explained Dr White was getting orders in, and social work would provide resources to him for discharge. The patient appeared frustrated with the waiting and stated he has a ride coming to get him. The senior technical writer explained we are getting everything together and should not be longer than an hour. The patient at that time agreed to wait. The senior technical writer walks by the room and sees the curtain moving, looks down the barbour, and the patient walking towards the elevators. Asked patient to come back to the room. He states there's no reason for him to stay anymore because his heart is fine. Retirement Specialist removes IV. The patient asked if there is a form for him to sign so that he can just go. The senior technical writer has the legal administrative secretary print the AMA form. The patient in his room starts going through cupboards. The senior technical writer asked what he is searching for, and he replies his cigarettes. The senior technical writer goes to the locker and gets cigarettes. The patient signs the AMA form and leaves on his own down the hallway. The senior technical writer contacted [facility] social work to notify them the patient had left and the resources did not need to be brought down. The senior technical writer notified Dr. White that the patient had left before discharge instructions and resources being provided. Electronically signed by Valente Mcdonald 09/28/20 18:58 EDT Normal [facility] TSHon 09-28-2020 TSH Qn 0.76 m[IU]/L Normal 0.45-5.33 [facility] Comment on above: Result Comment: Refe rence Ranges for individuals from to 18 years of age were obtained from The Alondra Gonzalez Handbook (20 ed) published by [facility]. Reference Ranges for Females: Females, 1st Trimester 0.05 ? 3.7 uIU/mL Females, 2nd Trimester 0.31 ? 4.35 uIU/mL Females, 3rd Trimester 0.41 ? 5.18 uIU/mL Performed By: #### T SH #### [facility] [address] [place] [address] UA w Culture if Indon 2020 Color (U) Julianne Normal [facility] Comment on above: Performed By: #### C [id number] #### [facility] [employer] [address] [place] [address] Glucose (U) [Mass/Vol] Negative Normal Negative [facility] Comment on above: Performed By: #### C D:[id number] #### [facility] [employer] [address] [place] [address] Ketones Ql (U) 80 mg/dL Abnormal Negative [facility] Comment on above: Performed By: #### C D:[id number] #### [employer] [address] [place] [address] UA Blood Negative Normal Negative [facility] Comment on above: Performed By: #### C D:[id number] #### [facility] [employer] [address] [place] [address] UA Clarity Clear Normal [facility] Comment on above: Performed By: #### C D:[id number] #### [facility] [employer] [address] [place] [address] UA Leukocyte Esterase Negative Normal Negative [facility] Comment on above: Performed By: #### C D:[id number] #### [employer] [address] [place] [address] UA Nitrite Negative Normal Negative [facility] Comment on above: Performed By: #### C D:[id number] #### [facility] [employer] [address] [place] [address] UA pH 6.0 Normal 4.5 - 7.8 [facility] Comment on above: Performed By: #### C D:[id number] #### [facility] [address] [place] [address] UA Protein 30 mg/dL Abnormal Negative [facility] Comment on above: Performed By: #### C D:[id number] #### [facility] [address] [place] [address] UA Source Clean Catch Normal [facility] Comment on above: Performed By: #### C D:[id number] #### [facility] [address] [place] [address] UA Spec Grav 1.028 Normal 1.003-1.035 [facility] Comment on above: Performed By: #### C D:[id number] #### [facility] [address] [place] [address] UA Urobilinogen 0.2 mg/dL Normal 0.2 - 1.0 [facility] Comment on above: Performed By: #### C D:[id number] #### [facility] [address] [place] [address] Urobilinogen (U) [Mass/Vol] Negative Normal Negative [facility] Comment on above: Performed By: #### C D:[id number] #### [facility] [address] [place] [address] UDS Compon 09-28-2020 UA pH 6.0 Normal 4.5 - 7.8 [facility] Comment on above: Performed By: #### T SH #### [address] [address] UA Spec Grav 1.028 Normal 1.003-1.035 [facility] Comment on above: Performed By: #### T SH #### [address] [address] Creatinine [Mass/Vol] 358.0 mg/dL Normal [facility] Comment on above: Performed By: #### T SH #### [address] [address] Ur Amph Scrn Positive Abnormal NEG = <1000 [facility] Comment on above: Result Comment: This unconfirmed positive screening result is to be used for medical treatment purposes only. Unconfirmed screening results must not be used for non-medical purposes. (e.g. employment testing, legal testing). Performed By: #### T SH #### [address] [address] [place] [address] Ur Crhistine Scrn Negative Normal NEG = <200 [facility] Comment on above: Performed By: #### T SH #### [address] [place] [address] Ur Benzodia Scrn Negative Normal NEG = <200 [facility] Comment on above: Performed By: #### T SH #### [address] [place] [address] Ur Cannab Scrn Negative Normal NEG = <50 [facility] Comment on above: Performed By: #### T SH #### [address] [place] [address] Ur Cocaine Scrn Negative Normal NEG = <300 [facility] Comment on above: Performed By: #### T SH #### [address] [place] [address] Ur Methadone Scn Negative Normal NEG = <300 [facility] Comment on above: Performed By: #### T SH #### [address] [address] Ur Opiate Scrn Negative Normal NEG = <300 [facility] Comment on above: Performed By: #### T SH #### [facility] [address] [place] [address] [place] [address] Ur Oxy Screen Negative Normal NEG = <100 [facility] Comment on above: Performed By: #### T SH #### [address] [place] [address] Ur Oxy Scrn Qnt 19 ng/mL Normal <=99 [facility] Comment on above: Performed By: #### T SH #### [address] [place] [address] Ur PCP Scrn Negative Normal NEG = <25 [facility] Comment on above: Performed By: #### T SH #### [address] [address] CBC with Diffon 11-20-2018 Abs. Basophil 0.10 k/uL Normal 0.0-0.2 [facility] Comment on above: Performed By: #### C DP, CP #### [facility] [place] [address] [employer] Floorperson: Brandon Lara DO Abs.Neutrophil (Seg) 3.10 k/uL Normal 1.3-9.1 [facility] Comment on above: Performed By: #### C DP, CP #### [facility] [address] [place] [address] [employer] Floorperson: Brandon Lara DO Basophils/100 WBC (Bld) 1 % Normal 0-2 [facility] Comment on above: Performed By: #### C DP, CP #### [facility] [address] [place] [address] [employer] Floorperson: Brandon Lara DO Eosinophils (Bld) [#/Vol] 0.20 10*3/uL Normal 0.0-0.4 [facility] Comment on above: Performed By: #### C DP, CP #### [facility] [address] [place] [address] [employer] Floor[employer]: Brandon Lara DO Eosinophils/100 WBC (Bld) 2 % Normal 0-4 [facility] Comment on above: Performed By: #### C DP, CP #### [facility] [address] [place] [address] [employer] Floor[employer]: Brandon Lara DO Erythrocyte distribution width (RBC) [Ratio] 13.8 % Normal 11.5-14.9 [facility] Comment on above: Performed By: #### C DP, CP #### [facility] [address] [place] [address] [employer] Floor[employer]: Brandon Lara DO Hematocrit (Bld) [Volume fraction] 48.5 % Normal 41-53 [facility] Comment on above: Performed By: #### C DP, CP #### [facility] [place] [address] [employer] Floor[employer]: Brandon Lara DO Hemoglobin (Bld) [Mass/Vol] 16.4 g/dL Normal 13.5-17.5 [facility] Comment on above: Performed By: #### C DP, CP #### [facility] [place] [address] [employer] Floorperson: Brandon Lara DO Lymphocytes (Bld) [#/Vol] 4.90 10*3/uL High 1.0-4.8 [facility] Comment on above: Performed By: #### C DP, CP #### [facility] [address] [place] [address] [employer] Floorperson: Brandon Lara DO Lymphocytes/100 WBC (Bld) 52 % High 24-44 [facility] Comment on above: Performed By: #### C JEAN, CP #### [facility] [address] [place] [address] [employer] Floorperson: Brandon Lara DO MCH (RBC) [Entitic mass] 30.1 pg Normal 26-34 [facility] Comment on above: Performed By: #### C DP, CP #### [facility] [address] [place] [address] [employer] Floorperson: Brandon Lara DO MCHC (RBC) [Mass/Vol] 33.8 g/dL Normal 31-37 [facility] Comment on above: Performed By: #### C DP, CP #### [facility] [address] [place], [place] [address] [place] [address] [employer]person: Brandon Lara DO MCV (RBC) [Entitic vol] 89.0 fL Normal 80-100 [facility] Comment on above: Performed By: #### C DP, CP #### [facility] [address] [facility] [place] [address] [employer] Floorperson: Brandon Lara DO Monocytes (Bld) [#/Vol] 1.00 10*3/uL Normal 0.1-1.3 [facility] Comment on above: Performed By: #### C DP, CP #### [facility] [address] [place] [address] [employer] Floorperson: Brandon Lara DO Monocytes/100 WBC (Bld) 11 % High 1-7 [facility] Comment on above: Performed By: #### C DP, CP #### [facility] [place] [address] [employer] Floorperson: Brandon Lara DO Neutrophil (Seg) 34 % Low 36-66 [facility] Comment on above: Performed By: #### C DP, CP #### [facility] [place] [address] [employer] Floorperson: Brandon Lara DO Platelet mean volume (Bld) [Entitic vol] 8.4 fL Normal 6.0-12.0 [facility] Comment on above: Performed By: #### C DP, CP #### [facility] [place] [address] [employer] Floorperson: Brandon Lara DO Platelets (Bld) [#/Vol] 301 10*3/uL Normal 150-450 [facility] Comment on above: Performed By: #### C DP, CP #### [facility] [place] [address] [employer] Floorperson: Brandon Lara DO RBC (Bld) [#/Vol] 5.45 10*6/uL Normal 4.5-5.9 [facility] Comment on above: Performed By: #### C DP, CP #### [facility] [address] [facility] [place] [address] [employer] Floorperson: Brandon Lara DO WBC (Bld) [#/Vol] 9.2 10*3/uL Normal 3.5-11.0 [facility] Comment on above: Performed By: #### C DP, CP #### [facility] [place] [address] [employer]person: Brandon Lara DO Abs.Imm.Granulocyte NOT REPORTED Normal 0.00-0.30 [facility] Comment on above: Performed By: #### C DP, CP #### [facility] [address] [place] [address] [employer] Floorperson: Brandon Lara DO Auto Diff Performed NOT REPORTED Normal [facility] Comment on above: Performed By: #### C DP, CP #### [facility] [place] [address] [employer]person: Brandon Lara DO Immature granulocytes (Bld) [#/Vol] NOT REPORTED Normal 0 [facility] Comment on above: Performed By: #### C DP, CP #### [facility] [address] [place] [address]. [place] [address] [employer]person: Brandon Lara DO NRBC Automated NOT REPORTED Normal [facility] Comment on above: Performed By: #### C DP, CP #### [facility] [address] [place] [address] [employer] Floorperson: Brandon Lara DO Platelets (Bld) [#/Vol] NOT REPORTED Normal [facility] Comment on above: Performed By: #### C DP, CP #### [facility] [address] [place] [address] [employer] Floorperson: Brandon Lara DO RBC morphology finding Nom (Bld) NOT REPORTED Normal [facility] Comment on above: Performed By: #### C DP, CP #### [facility] [address] [facility] [place] [address] [employer] Floorperson: Brandon Lara DO WBC Morphology NOT REPORTED Normal [facility] Comment on above: Performed By: #### C JEAN, CP #### [facility] [place] [address] [employer] Floorperson: Brandon Lara DO Comp Metabolic Profon 2018 (cont.) Normal [facility] Comment on above: Result Comment: Aver age GFR for 20-29 years old: 116 mL/min/1.73sq m Chronic Kidney Disease: <60 mL/min/1.73sq m Kidney failure: <15 mL/min/1.73sq m eGFR calculated using average adult body mass. Additional eGFR calculator available at: http://[email or web address].com/multiple_crcl_2012.htm Performed By: #### C JEAN, CP #### [facility] [address] [place] [address] [employer] Floorperson: Brandon Lara DO Albumin [Mass/Vol] 4.5 g/dL Normal 3.5-5.2 [facility] Comment on above: Performed By: #### C JEAN, CP #### [facility] [address] [place] [address]. [place] [address] [employer]person: Brandon Lara DO Alkaline Phos 84 U/L Normal 40-129 [facility] Comment on above: Performed By: #### C DP, CP #### [facility] [place] [address] [employer] Floorperson: Brandon Lara DO ALT [Catalytic activity/Vol] 29 U/L Normal 5-41 [facility] Comment on above: Performed By: #### C DP, CP #### [facility] [address] [place] [address] [employer] Floorperson: Brandon Lara DO Anion gap [Moles/Vol] 13 mmol/L Normal 9-17 [facility] Comment on above: Performed By: #### C DP, CP #### [facility] [address] [place] [address] [employer] Floorperson: Brandon Lara DO AST [Catalytic activity/Vol] 21 U/L Normal <40 [facility] Comment on above: Performed By: #### C DP, CP #### [facility] [facility] [place] [address] [employer] Floorperson: Brandon Lara DO Bilirubin Ql (U) 1.00 mg/dL Normal 0.3-1.2 [facility] Comment on above: Performed By: #### C JEAN, CP #### [facility] [place] [address] [employer] Floorperson: Brandon Lara DO Calcium [Mass/Vol] 9.8 mg/dL Normal 8.6-10.4 [facility] Comment on above: Performed By: #### C JEAN, CP #### [facility] [place] [address] [employer] Floorperson: Brandon Lara DO Chloride [Moles/Vol] 100 mmol/L Normal 98-107 [facility] Comment on above: Performed By: #### C DP, CP #### [facility] [address] [place] [address] [employer] Floorperson: Brandon Lara DO CO2 [Moles/Vol] 29 mmol/L Normal 20-31 [facility] Comment on above: Performed By: #### C DP, CP #### [facility] [address] [place] [address] [employer] Floorperson: Brandon Lara DO Creatinine [Mass/Vol] 0.79 mg/dL Normal 0.70-1.20 [facility] Comment on above: Performed By: #### C DP, CP #### [facility] [address] [place] [address] [employer] Floorperson: Brandon Lara DO GFR, Amer >60 Normal >60 [facility] Comment on above: Performed By: #### C DP, CP #### [facility] [place] [address] [employer] Floorperson: Brandon Lara DO GFR,non Amer >60 Normal >60 [facility] Comment on above: Performed By: #### C DP, CP #### [facility] [place] [address] [employer] Floorperson: Brandon Lara DO Glucose [Mass/Vol] 95 mg/dL Normal 70-99 [facility] Comment on above: Performed By: #### C DP, CP #### [facility] Formerly named [facility] [place] [address] [employer] Floorperson: Brandon Lara DO Potassium [Moles/Vol] 4.3 mmol/L Normal 3.7-5.3 [facility] Comment on above: Performed By: #### C DP, CP #### [facility] [place] [address] [employer] Floorperson: Brandon Lara DO Protein [Mass/Vol] 7.6 g/dL Normal 6.4-8.3 [facility] Comment on above: Performed By: #### C DP, CP #### [facility] [place] [address] [employer] Floorperson: Brandon Lara DO Sodium [Moles/Vol] 142 mmol/L Normal 135-144 [facility] Comment on above: Performed By: #### C DP, CP #### [facility] [address] [place] [address] [employer] Floorperson: Brandon Lara DO Urea nitrogen [Mass/Vol] 17 mg/dL Normal 6-20 [facility] Comment on above: Performed By: #### C DP, CP #### [facility] [address] [place] [address] [employer] Floorperson: Brandon Lara DO Albumin/Globulin [Mass ratio] NOT REPORTED Normal 1.0-2.5 [facility] Comment on above: Performed By: #### C DP, CP #### [facility] [address] [place] [address] [employer] Floorperson: Brandon Lara DO BUN/CRE Ratio NOT REPORTED Normal 9-20 [facility] Comment on above: Performed By: #### C JEAN, CP #### [facility] [address] [place] [address] [employer] Floorperson: Brandon Lara DO Staging: NOT REPORTED Normal [facility] Comment on above: Performed By: #### C DP, CP #### [facility] [address] [place] [address] [employer] Floorperson: Brandon Lara DO Vital Signs Date Time Vital Sign Value Performing Clinician Facility 09-01-2023 09:38-0400 Body height 165.1 cm [facility] 09-01-2023 09:38-0400 Body temperature 97.8 [degF] [facility] 09-01-2023 09:38-0400 Body weight 67.9 kg [facility] 09-01-2023 09:38-0400 Diastolic blood pressure 70 mm[Hg] [facility] 09-01-2023 09:38-0400 Heart rate 66 /min [facility] 09-01-2023 09:38-0400 Respiratory rate 18 /min [facility] 09-01-2023 09:38-0400 SaO2% (BldA) [Mass fraction] 100 % [facility] 09-01-2023 09:38-0400 Systolic blood pressure 125 mm[Hg] [facility] 01-15-2022 07:26-0400 Body temperature 97.9 [degF] MD Tom Britton Work Phone: [facility] 01-15-2022 07:26-0400 Diastolic blood pressure 76 mm[Hg] MD Tom Britton Work Phone: [facility] 01-15-2022 07:26-0400 Heart rate 55 /min MD Tom Britton Work Phone: [facility] 01-15-2022 07:26-0400 Respiratory rate 16 /min MD Tom Britton Work Phone: [facility] 01-15-2022 07:26-0400 SaO2% (BldA) [Mass fraction] 100 % MD Tom Britton Work Phone: [facility] 01-15-2022 07:26-0400 Systolic blood pressure 115 mm[Hg] MD Tom Britton Work Phone: [facility] 01-14-2022 09:00-0400 Body weight 65.9 kg MD Tom Britton Work Phone: [facility] 01-12-2022 13:00-0400 Body height 165.1 cm MD Tom Britton Work Phone: [facility] 04-13-2019 10:59-0500 BP Diastolic 53 mm[Hg] [facility] [place] 04-13-2019 10:59-0500 BP Systolic 89 mm[Hg] [place], [place] 04-13-2019 10:59-0500 Pulse (Heart Rate) 63 /min [place], [place] 04-13-2019 10:59-0500 Respiratory Rate 14 /min [facility], [place] 04-12-2019 07:40-0500 Body Temperature 97.81 [degF] [facility] [place] 04-10-2019 20:04-0500 Pulse Oximetry 99 % [place], [place] 04-10-2019 03:10-0500 BMI (Body Mass Index) 21.95 kg/m2 [facility], [place] 04-10-2019 03:10-0500 Body weight 61.69 kg [place], [place] 04-10-2019 03:10-0500 Height 167.6 cm [place] Encounters Encounter Date Encounter Type Care Provider Facility Start: 01-12-2025 ambulatory Pankaj Farias acility:[facility] Start: 10-01-2024 End: 10-01-2024 Emergency department patient visit NO PCP NO PCP [facility] Start: 10-28-2023 End: 10-28-2023 Emergency department patient visit [facility] Start: 10-28-2023 End: 10-28-2023 Emergency department patient visit [facility] Start: 10-27-2023 End: 2023 Emergency department patient visit PANTERA Escalante DO [facility] Start: 10-15-2023 End: 10-16-2023 Emergency department patient visit LAURA TERRY [facility] Start: 10-15-2023 End: 10-15-2023 Emergency department patient visit [facility] Start: 09-01-2023 End: 09-01-2023 Emergency department patient visit [facility] Work Phone: Start: 01-12-2022 End: 01-15-2022 Evaluation and management of inpatient MD Tom Britton Work Phone: [facility] Start: 02-07-2021 End: 02-07-2021 ambulatory [facility] Facility:H1 Start: 10-21-2020 End: 10-21-[address] JASON BARRERA Facility:H1 Start: 10-21-2020 End: 10-21-[address] JASON BARRERA Facility:H1 Start: 10-08-2020 End: 10-08-[address] VERMA LISTED REQUEST Facility:H1 Start: 09-28-2020 End: 09-28-2020 ambulatory Brandi White DO Facility:[facility] Start: 04-10-2019 End: 04-13-2019 Evaluation and management of inpatient MELANIE TAMEZ [facility] Start: 11-19-2018 End: 11-21-2018 Evaluation and management of inpatient ALEXIS OWENS [facility] Procedures Date Procedure Procedure Detail Performing Clinician [...] MONITORING C LOSE Q 15 MINUTES [facility] Start: 04-10-2019 VITAL SIGNS, PSYCH ABDU [facility] Start: 04-10-2019 PATIENT STATUS (DIRECT) ALEXIS OWENS Start: 11-21-2018 DISCHARGE PATIENT ZAC OWENS Start: 11-20-2018 Blood count complete auto&auto difrntl wbc [facility] Start: 11-20-2018 Comprehensive metabo lic panel ALEXIS QUIROGA Start: 11-19-2018 IP CONSULT TO HISTOR Y AND PHYSICAL ALEXIS QUIROGA Start: 11-19-2018 DIET GENERAL ALEXIS QUIROGA Start: 11-19-2018 FULL CODE ALEXIS OWENS Start: 11-19-2018 SUICIDE PRECAUTIONS [facility] Start: 11-19-2018 TOBACCO CESSATION EDUCATION [facility] Start: 11-19-2018 VITAL SIGNS ALEXIS QUIROGA Start: 11-19-2018 MISCELLANEOUS NURSIN G CARE ORDER (SPECIFY) ALEXIS QUIROGA Start: 11-19-2018 IP CONSULT TO HISTOR Y AND PHYSICAL [facility] Start: 11-19-2018 PATIENT MONITORING C LOSE Q 15 MINUTES [facility] Start: 11-19-2018 PATIENT STATUS (DIRECT) ALEXIS QUIROGA Plan of Treatment Date Care Activity Detail Author Start: 01-15-[address] [facility] Work Phone: Start: 01-12-2022 Referral to [employer] [facility] Work Phone: Start: 01-12-2022 Hospital admission [facility] Work Phone: Start: 01-10-2019 Influenza vaccination Flu vaccine (# 1) [place], [place] Patient Education [facility] Work Phone: Patient referral [facility] Work Phone: Payers Date Payer Category Payer Self-pay [id number] 2022 Medicaid [id number] 2020 Unknown 2019 Medicaid PENDING MEDICAID PENDING MEDICAID xxxxx 2019-Present xxxxx [id number] 2019 Medicaid ACUTE 1994 Unknown [id number] 1994 Unknown [id number] [id number] 1994 Unknown [id number] [id number] 1994 Unknown [id number] [id number] 1994 Unknown [id number] 2.16.840.1.103845.3.579.2.593 1994 Unknown [id number] 2.16.840.1.057467.3.579.2.593 1994 Unknown [id number] 2.16.840.1.286266.3.579.2.593 1994 Unknown [id number] 2.16.840.1.590620.3.579.2.593 1994 Unknown [id number] 2.16.840.1.733902.3.579.2.1286 1994 Unknown [id number] 2.16.840.1.157726.3.579.2.1286 1994 Unknown [id number] 2.16.840.1.432808.3.579.2.1286 1994 Unknown [id number] 2.16.840.1.818245.3.579.2.1286 1994 Unknown [id number] 2.16.840.1.928575.3.579.2.1286 1994 Unknown [id number] 2.16.840.1.168450.3.579.2.1286 1994 Unknown [id number] [id number] 05-12-1960 Unknown [id number] Medicaid [facility] [id number] Medicaid Anthem [place] Medicaid [id number] Unknown [id number] Social History Date Type Detail Facility Start: 04-10-2019 Tobacco smoking stat us NHIS Current every day smoker [place], [place] History of tobacco use Cigarette Smoker [place], [place] History of tobacco use Cigar Smoker [place] Start: 04-10-2019 Cigarettes smoked current (pack per day) - Reported [place], [place] Start: 04-10-2019 Alcohol intake Ex-drinker (finding) [place] Start: 11-19-2018 Tobacco Comment pt accepting o f nicotine gum [place], [place] Sex Assigned At Not on file [place], [place] Start: 01-13-2022 End: 09-01-2023 Tobacco smoking status NHIS Smoker (finding) [facility] Start: 1995 Sex Assigned At Male F [facility] Functional Status Date Assessment Result Facility 01-15-2022 Functional status Patient at Baseline [facility] Work Phone: Mental Status Date Assessment Result Facility 01-15-2022 Cognitive function Cognitive Sta tus Patient at Baseline [facility] Work Phone: Progress note 01-14-2022 Note Date & Type Note Facility 01-14-2022 Progress note Note Date/Time January 14, 2022 12:32pm [facility] [address] [place] [address] Psychiatry Progress Note Signed Patient: Akira Palomo MR#: [id number] : 1995 Acct:[id number] Age/Sex: 26 / M Adm Date: 2 Loc: Room: [address] [place] [address] Type : ADM IN Attending Dr: Tmo Britton MD Copies to: ~ Date of [...] <Electronically signed by Erick Elizondo MD> 01/14/22 [facility] [place] [facility] Work Phone: History and physical note 01-13-2022 Note Date & Type Note Facility 01-13-2022 History and physical note Note Date/Time January 13, 2022 9:17am [facility] [address] [place] [address] Psychiatry H&P Signed Patient: Akira Palomo MR#: [id number] : 1995 Acct:[id number] Age/Sex: 26 / M Adm Date: 2 Loc: Room: [address] [place] [address] Type: ADM IN Attending Dr: Tom Britton [...] previous suicide attempts and psychiatric hospitalization at [facility]. He reports a history of self-medicating with meth but denied current use. He said he is intoxicated before he attempted to jump from the bridge. Hehad tried several medications before for depression but did not like them. 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 Documented By: Pankaj Britton MD 2 916 Signed By: <Electronically signed by Pankaj Britton MD> 01/13/22 09 [facility] Work Phone: Discharge summary note 09-28-2020 Note Date & Type Note Facility 09-28-2020 Note Admission Informatio n Patient: Akira Palomo Jr : 1995 Date of Admission: 09/28/2020 10:08:56 Date of Discharge: 09/28/2020 PCP: Lakisha Solitario MD Consult: Judith Licona MD Follow Up with Provider: With: Address: When: Lakisha Solitario MD [address] [place] [phone] Within 1 week Comments: Call for followup appointment. Hospital follow up. Diagnoses: 1. SVT (supraventricular tachycardia) 2. Elevated troponin 3. Methamphetamine use 4. Tobacco use 5. MRSA nasal colonization Brief Hospital Course Summary: The patient is a pleasant 24 yo male patient admitted from [facility] with reported SVT. He had the first episode during the day on 09/27/2020 was given adenosine with improvement and discharged home. His symptoms returned overnight and he was readmitted to the ED in [place] but then spontaneously converted. He was then transferred to [facility] for further evaluation. Echocardiogram ordered and [...] Longer Be Taken potassium chloride (Potassium Chloride (Zpw-Lxvn-Lwm M20) 20 mEq oral tablet, extended release) [...] by Brandi White DO 09/28/20 17:53 EDT [facility] Clinical Note 09-28-2020 Note Date & Type Note Facility 09-28-2020 Note Chief Complaint palpitations Reason for Consultation SVT History of Present Illness 24 yo M with no past cardiac history. He was just released from [facility] a few days ago after serving 9 months for narcotics. He has been in [facility] previously for narcotics as well. He smokes but doesn't drink a lot of alcohol. He reports use of methamphetamine 2 days ago (though apparently he told a nurse in [place] that he used it this morning). Yesterday he presented to the [place] ED with chest pain, dyspnea, diaphoresis and [...] was started. His troponin was 0.39 at [place] and is 0.21 and 0.16 here. His [...] IV Push, q4hr, PRN Home Potassium Chloride (Vnd-Qaer-Ivp M20) 20 mEq oral tablet, extended release, [...] by Judith Licona MD 09/28/20 17:20 EDT [facility] History and physical note 09-28-2020 Note Date & Type Note Facility 09-28-2020 Note Chief Complaint Pains around my heart shortness of breath and lightheadedness History of Present Illness This is a pleasant 24-year-old male patient who presented initially to [facility] starting yesterday with sharp pain around [...] our hospital for further work-up. At the [facility] he did test positive for methamphetamine [...] pleasant 24 yo male patient admitted from [facility] with reported SVT. He had the first episode during the day on 09/27/2020 was given adenosine with improvement and discharged home. His symptoms returned overnight and he was readmitted to the ED in [place] but then spontaneously converted. He was then transferred to [facility] for further evaluation. Echocardiogram ordered and consult to cardiology Assessment: SVT Elevated troponin Methamphetamine use Tobacco use Plan: Admit to telemetry monitoring, echocardiogram, cycle troponin level, elevation likely secondary to tachycardia, consult cardiology Check drug screen consult forensic psychologist Hold off on nicotine replacement until cardiology evaluates as nicotine could precipitate tachycardia Medical necessity for ongoing hospitalization: SVT Complication risk: Worsening cardiac arrhythmias Disposition Discharge Barriers: Work-up in progress Code Status: Full code Health Care Power of Chairman Ceo or next of kin: Judie Osorio Family [...] IV Push, q4hr, PRN Home Potassium Chloride (Nbm-Yzup-Utn M20) 20 mEq oral tablet, extended release, [...] Results No qualifying data available Lab results [facility] 09/28/2020: Troponin 0 0.39 D-dimer negative Sodium 134 Potass (more content not included)... [facility] Discharge summary Note Date & Type Note Facility Discharge summary Note Date/Time January 15, 2022 11:40am [facility] [address] [place] [id number] Discharge Summary Signed Patient: Akira Palomo MR#: [id number] : 1995 Acct:[id number] Age/Sex: 26 / M Adm Date: 2 Loc: Room: [address] [place] [address]: Tom Britton MD Copies to: [...] previous suicide attempts and psychiatric hospitalization at [facility].? He reports a history of self-medicating with meth but denied current use.? He said he is intoxicated before he attempted to jump from the bridge.? Hehad tried several medications before for depression but did not like them.? 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 (insert date/time here) Intake: (Insert date/time here) Please bring a copy of your photo ID, insurance card, and proof of household income.? 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 acute [facility] Work Phone: Evaluation note Note Date & Type Note Facility Evaluation note No assessment information availa ble [facility] Work Phone: Hospital Discharge instructions Note Date & Type Note Facility Hospital Discharge instructions Additional Instructions Regular diet No activity restrictions [facility] Work Phone: Family History No Family History Records Found Medical History Relation Name Comments Diabetes Mother Hypertension Mother Relation Name Status Comments Mother Advance Directives No Advanced Directives Records FoundDocuments on File Type Date Recorded Patient Fractionation Supervisor Expl anation Advance Directives and Living Will Power of Chairman Ceo Latest Code Status on File Code Status [...] section and content) DATE CREATED AUTHOR 04/15/2019 [facility] DATE CREATED AUTHOR AUTHOR'S ORGANIZ ATION 10/05/2020 [facility] DATE CREATED AUTHOR AUTHOR'S ORGANIZ ATION 02/09/2021 [facility] DATE CREATED AUTHOR AUTHOR'S ORGANIZ ATION 10/07/2024 [facility] DATE CREATED AUTHOR AUTHOR'S ORGANIZ ATION 01/14/2025 [facility] Care Teams (unrecognized sec [...] BE BASED ON THE PRIMARY CLINICAL RECORDS. [facility] [employer] provides no warranty or guarantee of the accuracy or completeness of information in this document.
[2025-01-17 11:40] VITALS: BP 116/87; PULSE 98; TEMP 36.4; O2SAT 100; BMI 30.7
--- NOTE | 2025-01-17 11:54 | ED.GENADUL1 ---
HPI HPI - General Adult General Chief complaint: Urogenital-Male Stated complaint: ABDOMINAL PAIN CONSTIPATION Time Seen by Provider: 01/17/25 11:42 Source: patient Mode of arrival: walk-in Limitations: no limitations History of Present Illness HPI narrative: 29-year-old male presents for numbness of his penis and scrotum. He has had this continuously for 3 days since he took a pill that he bought offline to improve sexual performance. His symptoms started an hour after he took it. He states the pill did not give him an erection. He also states that he is having trouble starting his urine stream. He has no issues with constipation. This has never happened to him before and he denies any pain. Denies any IV drug use. He states he mixed methamphetamine with the pill that he took 3 days ago. He cannot find the name of the pill. No fever or hematuria. He is also requesting STD checks. Related Data Home Medications ?Medication ?Instructions ?Recorded ?Confirmed ibuprofen 600 mg tablet 600 mg PO Q8H PRN pain 10/28/23 10/28/23 lorazepam 1 mg tablet 1 mg PO Q8H PRN anxiety 10/28/23 10/28/23 Allergies Allergy/AdvReac Type Severity Reaction Status Date / Time No Known Drug Allergies Allergy Verified 01/17/25 11:40 Opioid HPI Opioid Management Most Recent Opioid Data: Last Pain Scale 8 10/22/24, 07:59 Review of Systems ROS Narrative A ten point review of systems is negative except as noted above. PFSH PFSH Social History Smoking status: Current every day smoker Little interest or pleasure in doing things: not at all Feeling down, depressed, or hopeless: not at all Exam Narrative Exam Narrative: Nurses note and vital signs reviewed and patient is not hypoxic. General: The patient appears well and in no apparent distress. Patient is resting comfortably on cart. Skin: Warm, dry, no pallor noted. There is no rash noted. Head: Normocephalic, atraumatic Eye: Normal conjunctiva, no drainage Ears, Nose, Mouth, and Throat: oral mucosa is moist. Nares patent. Cardiovascular: Regular Rate and Rhythm Respiratory: Patient is in no distress, no accessory muscle use, lungs are clear to auscultation, no wheezing, rales or rhonchi Back: non-tender GI: Soft and nontender : Normal male external genitalia. No skin lesions. No bruising or abrasions. No scrotal swelling Musculoskeletal: The patient has no evidence of calf tenderness, no pitting edema, symmetrical pulses noted bilaterally Neurological: A&O, normal speech Psychiatric: Cooperative Constitutional Vital Signs, click to edit/add: Last Vital Signs Temp 97.6 F 01/17/25 11:40 Pulse 98 H 01/17/25 11:40 Resp 16 01/17/25 11:40 BP 116/87 01/17/25 11:40 Pulse Ox 100 01/17/25 11:40 O2 Del Method Room Air 01/17/25 11:40 Course Vital Signs Vital signs: Vital Signs Temperature 97.6 F 01/17/25 11:40 Pulse Rate 98 H 01/17/25 11:40 Respiratory Rate 16 01/17/25 11:40 Blood Pressure 116/87 01/17/25 11:40 Pulse Oximetry 100 01/17/25 11:40 Oxygen Delivery Method Room Air 01/17/25 11:40 Temperature 97.6 F 01/17/25 11:40 Pulse Rate 98 H 01/17/25 11:40 Respiratory Rate 16 01/17/25 11:40 Blood Pressure 116/87 01/17/25 11:40 Pulse Oximetry 100 01/17/25 11:40 Oxygen Delivery Method Room Air 01/17/25 11:40 Medical Decision Making MDM Narrative Medical decision making narrative: His workup here including CT of the lumbar spine and CT of the abdomen is negative. Urinalysis and blood work including renal function tests are normal as well. He has a normal exam. I do not suspect cauda equina syndrome or an epidural abscess. He is being referred to urology for follow-up. Treatment diagnosis and follow-up were discussed with the patient. Differential Diagnosis Differential Diagnosis: Substance abuse, STD, UTI Lab Data Lab results reviewed: Yes I reviewed the patient's lab results Labs: Lab Results 01/17/25 01/17/25 Range/Units 12:06 12:20 WBC 8.2 (4.0-11.0) 10^3/uL RBC 5.31 (4.70-6.10) 10^6/uL Hgb 15.7 (14.0-18.0) g/dL Hct 43.9 (42.0-54.0) % MCV 82.7 (80.0-94.0) fL MCH 29.6 (25.9-34.0) pg MCHC 35.8 H (29.9-35.2) g/dL RDW 12.1 (11.0-15.0) % Plt Count 292 (150-450) 10^3/uL MPV 9.5 (9.5-13.5) fL Neut % (Auto) 62.5 (43.0-75.0) % Lymph % (Auto) 23.3 (20.5-60.0) % [place]ites[place] % (Auto) 12.8 H (1.7-12.0) % Eos % (Auto) 0.6 L (0.9-7.0) % Baso % (Auto) 0.7 (0.2-2.0) % Neut # (Auto) 5.1 (1.4-6.5) 10^3/uL Lymph # (Auto) 1.9 (1.2-3.8) 10^3/uL Whiteside # (Auto) 1.1 H (0.3-0.8) 10^3/uL Eos # (Auto) 0.1 (0.0-0.7) 10^3/uL Baso # (Auto) 0.1 (0.0-0.1) 10^3/uL Abs Immat Gran (auto) 0.01 (0.00-0.03) 10^3/uL Imm/Tot Granulo (auto) 0.1 (0.0-0.5) % Sodium 141 (136-145) mmol/L Potassium 3.2 L (3.5-5.1) mmol/L Chloride 102 (98-107) mmol/L Carbon Dioxide 27.7 (21.0-32.0) mmol/L Anion Gap 14.5 BUN 12.0 (7.0-18.0) mg/dL Creatinine 0.78 (0.70-1.30) mg/dL Est GFR ( Amer) >60 (>=60 mL/min/1.73m^2) Est GFR (Non-Af Amer) >60 (>=60 mL/min/1.73m^2) BUN/Creatinine Ratio 15.4 Glucose 84 (74-106) mg/dL Calcium 8.8 (8.5-10.1) mg/dL Urine Color Lt. yellow (YELLOW) Urine Clarity Clear (CLEAR) Urine pH 6.5 (5.0-9.0) Ur Specific [place] <=1.005 A (1.005-1.025) Urine Protein Negative (NEG/TRACE) mg/dL Urine Glucose (UA) Negative (NEGATIVE) mg/dL Urine Ketones Negative (NEGATIVE) mg/dL Urine Occult Blood Negative (NEGATIVE) Urine Nitrite Negative (NEGATIVE) Urine Bilirubin Negative (NEGATIVE) Urine Urobilinogen 2.0 A (0.2-1.0) EU/dL Ur Leukocyte Esterase Negative (NEGATIVE) Urine RBC 0-2 (0-2) #/HPF Urine WBC 0-2 A (NONE SEEN) #/HPF Ur Squamous Epith Cells Rare (NONE/RARE) #/LPF Urine Crystals None seen (None Seen) #/HPF Urine Bacteria Trace A (NONE SEEN) #/HPF Urine Casts None seen (NONE SEEN) #/LPF Urine Mucus None seen (NONE SEEN) Ur Culture Indicated? No Imaging Data CT scan - abdomen: Radiologist's impression: ITS Impressions Abdomen/Pelvis CT 01/17/25 13:00 IMPRESSION: MINOR NONSPECIFIC LEFT LOWER LOBE PARENCHYMAL CHANGE. NO BOWEL OR URINARY TRACT OBSTRUCTION. NO ACUTE INTRA-ABDOMINAL OR PELVIC FINDINGS. Impression dictated by: Leni Sandhu M.D. 01/17/2025 1:31 PM Dictation Location: [facility] Electronically authenticated by: [id number] Y Date: 01/17/2025 13:[address] 01/17/25 13:00 IMPRESSION: NO ACUTE BONY FINDINGS. MILD DEGENERATIVE DISC DISEASE AT L4-5 AND L5-S1, DESCRIBED. Impression dictated by: Leni Sandhu M.D. 01/17/2025 1:36 PM Dictation Location: [facility] Electronically authenticated by: [id number] Y Date: 01/17/2025 13:36 Discharge Plan Discharge Chief Complaint: Urogenital-Male Clinical Impression: Paresthesia Patient Disposition: Home, Self-Care Time of Disposition Decision: 13:44 Condition: Good Mode of Transportation: Private Vehicle Prescriptions / Home Meds: No Action ibuprofen 600 mg tablet 600 mg PO Q8H PRN (Reason: pain) lorazepam 1 mg tablet 1 mg PO Q8H PRN (Reason: anxiety) Print Language: [place] Instructions: Paresthesia (ED) Referrals: Physician,Non-Staff, MD [Primary Care Provider] - 1 week Ezekiel Villalta MD [Physician, Urology]
--- NOTE | 2025-01-17 12:15 | PC.NURSE ---
Pt presents to ER for penile loss of sensation and a feeling of coldness Pt states to Dr. Coleman that he took some sort of an unknown pill for male enhancement - which did not cause an erection Pt reports to this nurse that he also smoked meth when he took this pill Pt states since then he has had numbness and tingling in his penis and scrotum Pt states he has associated abdominal pain but no other illness, signs, or symptoms Pts mother is with him at bedside
[2025-01-17 12:30] LABS: Hematocrit 43.9 % (42.0-54.0); Hemoglobin 15.7 g/dL (14.0-18.0); Immature Granulocytes Abs Auto 0.01 10^3/uL (0.00-0.03); Immature Granulocytes Pct Auto 0.1 % (0.0-0.5); Lymphocytes Absolute Auto 1.9 10^3/uL (1.2-3.8); Mean Corpuscular HGB Conc 35.8 g/dL (29.9-35.2); Mean Corpuscular Hemoglobin 29.6 pg (25.9-34.0); Mean Corpuscular Volume 82.7 fL (80.0-94.0); Platelet Count 292 10^3/uL (150-450); Red Blood Count 5.31 10^6/uL (4.70-6.10); White Blood Count 8.2 10^3/uL (4.0-11.0)
[2025-01-17 12:44] LABS: Anion Gap 14.5; Blood Urea Nitrogen 12.0 mg/dL (7.0-18.0); Calcium 8.8 mg/dL (8.5-10.1); Carbon Dioxide 27.7 mmol/L (21.0-32.0); Chloride 102 mmol/L (98-107); Estimated GFR (African America >60 (>=60 mL/min/1.73m^2); Estimated GFR (Non-African Ame >60 (>=60 mL/min/1.73m^2); Glucose 84 mg/dL (74-106); Potassium 3.2 mmol/L (3.5-5.1); Sodium 141 mmol/L (136-145)
--- NOTE | 2025-01-17 13:00 | CT_ITS ---
The [address] [address] Patient Name: KEELY ELLIS MRN: [id number] date: 1995 Sex: M Assigned Patient Location: ER Current Patient Location: ER Accession/Order Number: [id number] Exam Date: 01/17/2025 12:50 Report Date: 01/17/2025 13:31 At the request of: LONNIE ATKINSON MD Procedure: CT abdomen pelvis w con CT ABDOMEN AND PELVIS WITH CONTRAST CLINICAL DATA: Painful urination for the past 3 days and decreased sensation to the penis and scrotum. Patient took a pill to improve sexual performance. COMPARISON: 11/08/2022 Spiral images were obtained through the abdomen and pelvis following 100 mL of Omnipaque 300. This CT exam was performed using one or more following dose reduction techniques: Automated exposure control, adjustment of the mA and/or kV according to patient size, or use of iterative reconstruction technique. Limited cuts through the lung bases show minor nodular parenchymal change at the posterior lateral left costophrenic angle which is not seen previously. No calcified gallstones are identified. No intrahepatic masses are seen. The spleen, pancreas and adrenal glands show no acute findings. There are symmetric renal nephrograms, without hydronephrosis. The abdominal aorta is normal caliber. Small retroperitoneal and right mesenteric lymph nodes are seen. There is no ascites. The small bowel loops are not distended. There is fluid and food debris within the stomach. There is a small amount of colonic stool. The bony structures are intact. Images through the pelvis show a tiny umbilical hernia containing fat. There are normal caliber small bowel loops. No appendiceal inflammation is seen. There is a small amount of distal colonic stool. No diverticular disease is noted. The prostate is normal in size. No urinary bladder abnormalities are present. There is no ascites. CT/CT abdomen pelvis w con IMPRESSION: MINOR NONSPECIFIC LEFT LOWER LOBE PARENCHYMAL CHANGE. NO BOWEL OR URINARY TRACT OBSTRUCTION. NO ACUTE INTRA-ABDOMINAL OR PELVIC FINDINGS. Impression dictated by: Leni Sandhu M.D. 01/17/2025 1:31 PM Dictation Location: [place] [address] Electronically authenticated by: [id number] Y Date: 01/17/2025 13:31
--- NOTE | 2025-01-17 13:00 | CT_ITS ---
The [address] [address] Patient Name: KEELY ELLIS MRN: [id number] date: 1995 Sex: M Assigned Patient Location: ER Current Patient Location: ER Accession/Order Number: [id number] Exam Date: 01/17/2025 12:50 Report Date: 01/17/2025 13:36 At the request of: LONNIE ATKINSON MD Procedure: CT lumbar spine w con CT LUMBAR SPINE WITHOUT CONTRAST WITH 3-D RECONSTRUCTIONS CLINICAL DATA: Painful urination and decreased sensation at the penis and scrotum after taking a sexual improvement pill. COMPARISON: CT 11/08/2022 Spiral axial unenhanced images were obtained through the lumbar spine. Sagittal, coronal and 3-D volume rendered reconstructions were reviewed. This CT exam was performed using one or more following dose reduction techniques: Automated exposure control, adjustment of the mA and/or kV according to patient size, or use of iterative reconstruction technique. There is subtle levoscoliotic curvature. Alignment is maintained on the sagittal reconstructions. There are no acute compression fractures. There is no disproportionate disc space narrowing or prominent hypertrophy. There is mild annular disc bulging at L4-5 and L5-S1. There is mild thecal sac effacement at L4-5. Mild inferior foraminal encroachment is seen bilaterally at both levels. The SI joints are intact. No paraspinal soft tissue abnormalities are seen. CT/CT lumbar spine w con IMPRESSION: NO ACUTE BONY FINDINGS. MILD DEGENERATIVE DISC DISEASE AT L4-5 AND L5-S1, DESCRIBED. Impression dictated by: Leni Sandhu M.D. 01/17/2025 1:36 PM Dictation Location: [email or web address] Electronically authenticated by: [id number] Y Date: 01/17/2025 13:36
[2025-01-17 13:16] LABS: Glucose Urine UA NEGATIVE (NEGATIVE)
[2025-01-17 13:32] LABS: Crystals Seen? None Seen #/HPF (None Seen)
[2025-01-17 13:33] LABS: Cast Seen? NONE SEEN #/LPF (NONE SEEN); Urine Culture Indicated NO
[2025-01-17 14:00] VITALS: BP 118/78; PULSE 78; O2SAT 99
[2025-01-19 04:11] LABS: Neisseria gonorrhoeae, NAA Negative (Negative)
== END 2025-01-17 14:04 | disposition home or self-care (01) ==
PROVIDERS: Emergency Provider Emergency Medicine
DX: R20.2 Paresthesia of skin (principal); F17.200 Nicotine dependence, unspecified, uncomplicated
CPT/HCPCS: 36415; 72132; 74177; 76376; 80048; 81001; 85025; 87491; 87591; 99284; Q9967